=== PATIENT | female | born 1945 | race Caucasian/White ===

== ENCOUNTER 2017-12-16 07:50 | Day surgery (SDC) | payer MEDICARE, OTHER, SELFPAY ==
[2017-12-15 08:29] VITALS: BMI 30.8
--- NOTE | 2017-12-16 11:15 | CL.D_ITS ---
Patient Name: Stefan RODRIGUEZ Study Date: 12/16/2017 Performing: Sascha Zaragoza MD Ht: 62.99 inches 160 cm : 1945 Wt: 174.17 lbs 79 kg Age: 72 Gender: female BSA: 1.82 PROCEDURE(S) PERFORMED GZ32-CRA/COR/LV DC11-AO ROOT ANGIO WITH HEART CATH CLINICAL PROFILE AND INDICATIONS Indications: Suspected CAD, Cardiomyopathy, LV Dysfunction Heart Failure: NYHA Class: 1, Newly Diagnosed: Yes, Heart Failure Type: Systolic Stress/Imaging Stress Test w/SPECT MPI: Yes Result: NegativeStress Test with SPECT MPI: Negative Angina Classification Anginal Classification w/in 2 Weeks: No symptoms CAD Presentations: Other: Dyspnea on exertion Comorbidities/Risk Factors: Hypertension Prior CHF CONCLUSIONS Non obstructive coronary arteries Global LV systolic dysfunction- Moderate LVEF: by LV gram 45 % Cardiomyopathy: Congestive RECOMMENDATIONS D/c plavix, continue anti HTN Meds and maximize to optimize BP. Serial echo to monitor AI. Management as per referring Telephoner D/w Dr Nichole Manual sheath removal. DESCRIPTION OF PROCEDURE The patient arrived to the procedure lab. The risks and benefits of the procedure as well as a full d escription of our services here and current unavailability of surgical backup were fully explained to the patient and/or their significant other prior to the catheterization. The Timeout was completed, verifying the correct patient and procedure. The patient's procedural site was prepped and draped in the usual fashion. Local anesthetic was given subcutaneously to right groin region with Lidocaine 2%. Using a modified Seldinger technique, arterial access was obtained via the right femoral artery, a 4 Fr sheath was inserted Left Coronary Artery selective angiography was performed in multiple views us ing a 4 Fr. JL5 catheter. Right Coronary Artery selective angiography was then performed in multiple views using a 4 Fr. 3DRC catheter. Left Ventriculography was performed in THAYER projection using a 4 Fr . Pigtail catheter. LV to AO pullback pressures were then recorded.The arterial sheath was pulled and manual compression applied until hemostasis is achieved. CORONARY ANGIOGRAPHY DOMINANCE: Right Dominant LEFT HEART ASSESSMENT Left Ventricular Ejection Fraction: by LV gram 45 % Global Hypokinesis - Moderate Depressed Left Ventricular systolic function LVEDP: 21 mmHg Elevated Left Ventricular End Diastolic Pressure Cardiomyopathy: Congestive Left Ventricular Hypertrophy LEFT ANTERIOR DECENDING ARTERY: Angiographically normal CIRCUMFLEX ARTERY: Angiographically normal RIGHT CORONARY ARTERY: MID RCA: Mild luminal irregularities less than 30% VALVE FINDINGS: Aortic Valve Insufficiency: Grade 2 COMPLICATIONS No Complications PROCEDURE MEDICATIONS Oxygen: 2 L/min via nasal cannula Nitro Tab 0.4 mg PO 12/16/2017 11:06:36 SUMMARY OF HEMODYNAMIC DATA Time AIR REST ECG 08:20:26 AO 174/77 (113) SA 10:54:40 LV 195/-11, 11 11:00:02 LV 179/-9, 21 11:00:08 LVp 179/-8, 20 11:00:13 AOp 180/74 (115) 11:00:18 Signed By Sascha Zaragoza MD On 12/16/2017 11:14:44 Sascha Zaragoza MD
== END 2017-12-16 15:37 | disposition home or self-care (01) ==
LOC: CLSP 07:53
PROVIDERS: Family Provider Internal Medicine Infectious Disease; PCP Internal Medicine Infectious Disease; Referring Provider Internal Medicine Cardiovascular Disease; Visit Provider Internal Medicine Cardiovascular Disease
DX: I25.5 Ischemic cardiomyopathy (principal); I35.1 Nonrheumatic aortic (valve) insufficiency; I11.0 Hypertensive heart disease with heart failure; I50.20 Unspecified systolic (congestive) heart failure; I44.7 Left bundle-branch block, unspecified; E78.5 Hyperlipidemia, unspecified; Z79.82 Long term (current) use of aspirin; Z79.899 Other long term (current) drug therapy
CPT/HCPCS: 93458; 93567; J7040; Q9967; A4216; C1769; C1894

== ENCOUNTER 2018-07-24 18:03 | Inpatient (IN) | payer MEDICARE, OTHER, SELFPAY ==
[2017-12-15 08:29] VITALS: BMI 30.8
[2018-07-24] VITALS (12 sets, daily range): BP systolic 117–214; BP diastolic 63–120; PULSE 91–128; RESP 13–22; TEMP 36.2; O2SAT 100; BMI 25.2
--- NOTE | 2018-07-24 18:19 | EKG12_ITS ---
Test Reason : Blood Pressure : / mmHG Vent. Rate : 082 BPM Atrial Rate : 082 BPM P-R Int : 140 ms QRS Dur : 150 ms QT Int : 422 ms P-R-T Axes : 035 -41 156 degrees QTc Int : 493 ms Normal sinus rhythm Left axis deviation Left bundle branch block Abnormal ECG Confirmed by JORGE TESFAYE, NILSON ([id number]), editor in chief JENNA RIOS ([id number]) on 08/04/2018 12:49:29 PM Referred By: Confirmed By:NILSON PATEL MD
--- NOTE | 2018-07-24 18:20 | RAD_ITS ---
STUDY: X-RAY CHEST REASON FOR EXAM: Female, 73 years old. Tube placement TECHNIQUE: Frontal portable view of the chest was performed COMPARISON: None. FINDINGS: Endotracheal tube is in place with its tip 4 cm from the mimi. Gastric drainage tube is present with its tip in the proximal fundus and side port in the gastric esophageal junction. There is a left subclavian entry infusion port terminating with its tip in the lower SVC. There is indistinct right lower lung opacity. There is no pneumothorax, pulmonary edema or pleural effusions. Cardiac size is normal. There is osteoporosis with compression fractures in the spine with cement augmentation. There is cholecystectomy clips. Compared to earlier same day imaging endotracheal tube has been slightly retracted with improved positioning. RAD/Chest 1 View (Portable) IMPRESSION: 1. Endotracheal tube with tip 4 cm from the mimi. 2. Gastric drainage tube with side-port at the gastroesophageal junction, consider advancement. 3. Right lower lung opacity, possibly atelectasis versus early developing pneumonia. Electronically Signed: Susu Brock, at 20:27 EDT Tel , Service support ,
--- NOTE | 2018-07-24 18:37 | PCM.HP.STD ---
Problem List (1) Opioid withdrawal Status: Acute (2) Altered mental status Status: Acute (3) Cardiomyopathy in disease classified elsewhere Status: Chronic (4) History of left heart catheterization Status: Chronic Comment: Moderate Global hypokinesis, EF 45%. Less than 30% mild luminal irregularities in Mid RCA, all other coronaries normal. (5) Anemia Status: Chronic (6) Peripheral neuropathy Status: Chronic (7) Depression Status: Chronic (8) Hypertension Status: Chronic Qualifiers: (9) Multiple myeloma Status: Chronic Qualifiers: History of Present Illness Date of Admission: 07/24/18 Chief Complaint: Altered mental status with agitation and opiate withdrawal The patient is a 73 year old F with a PMH as below who presents to outside hospital with altered mental status. Patient is currently intubated and sedated and there is no family at bedside and I cannot get a hold of anyone on the phone. Per report from the ED physician at the outside hospital, Mrs. Li has a history of chronic opiate use. It started in her 30s when she was having migraines and was given narcotics by her primary care doctor. She then developed multiple myeloma has been seeing [facility] oncology in [place], and because of any bone mets she has been continued on pain medication. Of note she had a CT scan today which demonstrated new lytic lesions in the calvarium which represent metastasis. Most recently her developed prostate cancer and was given doses of narcotics to help manage his pain, and it was discovered by the family that she was stealing his pain meds and so now they are all locked up. Apparently per report the family was unaware of her previous narcotic use because her was hiding it from the rest of the family. Also it appears that she ran out of her fentanyl patch and her other narcotics 2 or 3 days ago. At the outside hospital she was extremely agitated, she was given a dose of Narcan which made her symptoms of withdrawal worse. She was given Ativan which was unsuccessful and calming her down, she was then given an for 5 doses of 50 mcg of fentanyl, which also did not improve her symptoms. Because of her agitation and the amount of medication that she had been given, she was sedated and intubated. Per report, she continued to bite on the tube despite being on 80 of propofol, and therefore she was given a dose of vecuronium. Also there is some concern at the outside hospital but a new left bundle branch block based on prior EKGs that she had had at that facility. However, on review of our medical records, it appears that she had an EKG on December 05, 2016 with a left bundle branch block at that time. She had a troponin at the outside hospital which was normal and they called 1 of our setter off who did not feel that it was anything urgent since the troponin was negative. Past Medical History Past Medical History (Chronic Problems): Chronic Problems (Last Updated 12/21/17 @ 08:49 by Diane Hopkins) Cardiomyopathy in disease classified elsewhere (Chronic) History of left heart catheterization (Chronic 12/16/17) Moderate Global hypokinesis, EF 45%. Less than 30% mild luminal irregularities in Mid RCA, all other coronaries normal. Anemia (Chronic) Dementia (Chronic) Peripheral neuropathy (Chronic) Depression (Chronic) Hypertension (Chronic) Multiple myeloma (Chronic) Status post hip surgery (Chronic) Debility (Chronic) Medical History: Medical History (Last Updated 12/21/17 @ 08:49 by Diane Hopkins) Cardiomyopathy in disease classified elsewhere (Acute) I43 Allergies levofloxacin [From Levaquin] Allergy (Verified 10/17/15 20:42) Unknown metoprolol Allergy (Verified 10/17/15 20:42) Unknown Sulfa (Sulfonamide Antibiotics) Allergy (Verified 10/17/15 20:42) Unknown Home Medications: Ambulatory Orders Medication Instructions Recorded Albuterol Inhaler [Ventolin Hfa] 1 puff INHALATION Q4H PRN PRN 10/17/15 Aspirin E.C. [Ecotrin] 81 mg PO DAILY@0800 10/17/15 Calcium Citrate/Vitamin D3 1,000 unit PO DAILY 10/17/15 [Calcium Citrate - Vit D Tablet] Citalopram [Celexa] 10 mg PO DAILY 10/17/15 Gabapentin [Neurontin] 400 mg PO TIDCM 10/17/15 Guaifenesin [Mucinex] 600 mg PO DAILY 10/17/15 Multivitamin [Daily Multiple 1 each PO DAILY 10/17/15 Vitamin] Omeprazole [Prilosec] 20 mg PO BID 10/17/15 Amlodipine [Norvasc] 5 mg PO DAILY 12/03/16 Dexamethasone 12 mg PO QWEEK 12/03/16 Lisinopril [Zestril] 10 mg PO DAILY 12/03/16 Lutein 20 mg PO DAILY 12/03/16 Oxycodone [Oxyir] 5 mg PO Q6H PRN PRN #12 tablet 12/06/16 fentaNYL patch [Duragesic patch] 50 mcg TRANSDERM. Q72H #3 12/06/16 Acetaminophen [Tylenol Extra 500 mg PO Q8H PRN PRN 12/15/17 Strength] Acyclovir [Zovirax] 400 mg PO BID 12/15/17 Clobetasol Propionate [Temovate 1 applic TOPICAL QWEEK 12/15/17 Ointment] Estradiol [Estrace Vaginal Cream] 1 gm VAGINAL Q7D 12/15/17 Furosemide [Lasix] 20 mg PO DAILY 12/15/17 Magnesium PO DAILY 12/15/17 Pamidronate Disodium 30 mg IV 12/15/17 proMETHazine tablet [Phenergan 25 mg PO Q6H PRN PRN 12/15/17 tablet] traZODone [Desyrel] 100 mg PO DAILY 12/15/17 clopidogrel 75 mg tablet 75 mg PO DAILY #30 tab 06/29/18 Surgical History: Surgical History (Last Updated 12/21/17 @ 08:49 by Diane Hopkins) History of left heart catheterization (Chronic) Onset Date: 12/16/17 Z98.890 Moderate Global hypokinesis, EF 45%. Less than 30% mild luminal irregularities in Mid RCA, all other coronaries normal. Surgical History: - - hip surgery 12/01/16 Psychiatric History: - - dementia DEVICE SALES CONSULTANT History: No pertinent DEVICE SALES CONSULTANT history Smoking Status: Never smoker Alcohol: None Drugs: None - *Family History Maternal History Items: No pertinent history Paternal History Items: No pertinent history Review of Systems Unable to obtain accurate/complete ROS d/t: sedation and intubation VTE Information - Inpt Only VTE Present on Admission: No Patient Problems: Active and Suspected Problems (Last Updated 12/21/17 @ 08:49 by Diane Hopkins) Opioid withdrawal (Acute) Altered mental status (Acute) - Physical Exam General: - - Sedated and intubated HEENT: Atraumatic, PERRLA, Normocephalic Oral: Dry Mucosa Neck: Supple, No JVD Lungs: Clear to auscultation, Normal air movement, No rhonchi, No wheeze, No rales Cardiovascular: Regular Rhythm, Normal S1, Normal S2, No murmurs, Tachycardic Abdomen: Soft, Non-Distended, No Hepato-splenomegaly Extremities: No edema, Capillary Refill Less than 3 Seconds Skin: No rashes, No breakdown Neurological: - - Unable to obtain Psych/Mental Status: - - Unable to obtain Vital Signs Resp 14 07/24/18 18:00 Body Mass Index (BMI) 30.8 Assessment/Plan All Active Problems (Last Updated 12/21/17 @ 08:49 by Diane Hopkins) Opioid withdrawal (Acute) Altered mental status (Acute) Acute metabolic encephalopathy (Acute) NSTEMI (non-ST elevated myocardial infarction) (Acute) 1. Altered mental status secondary to acute opiate withdrawal -As described in the HPI, she has been on chronic narcotics for very long time and apparently ran out of her fentanyl patch and OxyContin 2 or 3 days ago -She was given a dose of Narcan in the ER to no avail and she is currently intubated and sedated -She had a CT scan at the outside facility of her head which showed potentially new lytic lesions in her calvarium -I am unsure, since I am not able to contact family, as to what the goal is therefore at this time will initiate her on a fentanyl drip as well to help with any pain management and her current elevated blood pressure, continue with propofol -We will repeat a chest x-ray and abdominal x-ray to confirm placement of ET tube and NG tube -Consult to the legal intern for vent management -Baker is in place -Pepcid IV twice daily GI prophylaxis 2. Multiple myeloma -We will likely need to contact [facility] oncology to obtain records -Currently I am unsure as to how extensive any metastatic disease is, or what treatments she has completed or is currently on -We will currently continue with fentanyl drip while intubated to help control pain 3. Nonobstructive coronary artery disease/history of left heart cath/left bundle branch block/HTN -Left bundle branch block does not appear to be new, therefore will not consult cardiology -We will obtain serial cardiac enzymes -She had a cardiac cath in 2018 with an EF of 45% and moderate left ventricular systolic dysfunction -No history of heart failure, she may be on Lasix 20 mg daily, currently we will continue with IV fluids since she is not eating or drinking -Continue her home medications once verified 4. Depression/anxiety/dementia -Unsure as to how extensive her dementia is and whether or not it is progressive -We will continue her Celexa once medication is confirmed DVT: Lovenox and SCDs Code Visit Inpatient E&M: 69392 Init Hosp L3
--- NOTE | 2018-07-24 18:43 | HP.PCM_ITS ---
Problem List (1) Opioid withdrawal Status: Acute (2) Altered mental status Status: Acute (3) Cardiomyopathy in disease classified elsewhere Status: Chronic (4) History of left heart catheterization Status: Chronic Comment: Moderate Global hypokinesis, EF 45%. Less than 30% mild luminal irregularities in Mid RCA, all other coronaries normal. (5) Anemia Status: Chronic (6) Peripheral neuropathy Status: Chronic (7) Depression Status: Chronic (8) Hypertension Status: Chronic Qualifiers: (9) Multiple myeloma Status: Chronic Qualifiers: History of Present Illness Date of Admission: 07/24/18 Chief Complaint: Altered mental status with agitation and opiate withdrawal The patient is a 73 year old F with a PMH as below who presents to outside hospital with altered mental status. Patient is currently intubated and sedated and there is no family at bedside and I cannot get a hold of anyone on the phone. Per report from the ED physician at the outside hospital, Mrs. Li has a history of chronic opiate use. It started in her 30s when she was having migraines and was given narcotics by her primary care doctor. She then developed multiple myeloma has been seeing [facility] oncology in [place], and because of any bone mets she has been continued on pain medication. Of note she had a CT scan today which demonstrated new lytic lesions in the calvarium which represent metastasis. Most recently her developed prostate cancer and was given doses of narcotics to help manage his pain, and it was discovered by the family that she was stealing his pain meds and so now they are all locked up. Apparently per report the family was unaware of her previous narcotic use because her was hiding it from the rest of the family. Also it appears that she ran out of her fentanyl patch and her other narcotics 2 or 3 days ago. At the outside hospital she was extremely agitated, she was given a dose of Narcan which made her symptoms of withdrawal worse. She was given Ativan which was unsuccessful and calming her down, she was then given an for 5 doses of 50 mcg of fentanyl, which also did not improve her symptoms. Because of her agitation and the amount of medication that she had been given, she was sedated and intubated. Per report, she continued to bite on the tube despite being on 80 of propofol, and therefore she was given a dose of vecuronium. Also there is some concern at the outside hospital but a new left bundle branch block based on prior EKGs that she had had at that facility. However, on review of our medical records, it appears that she had an EKG on December 05, 2016 with a left bundle branch block at that time. She had a troponin at the outside hospital which was normal and they called 1 of our physics and astronomy professor who did not feel that it was anything urgent since the troponin was negative. Past Medical History Past Medical History (Chronic Problems): Chronic Problems (Last Updated 12/21/17 @ 08:49 by Diane Hopkins) Cardiomyopathy in disease classified elsewhere (Chronic) History of left heart catheterization (Chronic 12/16/17) Moderate Global hypokinesis, EF 45%. Less than 30% mild luminal irregularities in Mid RCA, all other coronaries normal. Anemia (Chronic) Dementia (Chronic) Peripheral neuropathy (Chronic) Depression (Chronic) Hypertension (Chronic) Multiple myeloma (Chronic) Status post hip surgery (Chronic) Debility (Chronic) Medical History: Medical History (Last Updated 12/21/17 @ 08:49 by Diane Hopkins) Cardiomyopathy in disease classified elsewhere (Acute) I43 Allergies levofloxacin [From Levaquin] Allergy (Verified 10/17/15 20:42) Unknown metoprolol Allergy (Verified 10/17/15 20:42) Unknown Sulfa (Sulfonamide Antibiotics) Allergy (Verified 10/17/15 20:42) Unknown Home Medications: Ambulatory Orders Medication Instructions Recorded Albuterol Inhaler [Ventolin Hfa] 1 puff INHALATION Q4H PRN PRN 10/17/15 Aspirin E.C. [Ecotrin] 81 mg PO DAILY@0800 10/17/15 Calcium Citrate/Vitamin D3 1,000 unit PO DAILY 10/17/15 [Calcium Citrate - Vit D Tablet] Citalopram [Celexa] 10 mg PO DAILY 10/17/15 Gabapentin [Neurontin] 400 mg PO TIDCM 10/17/15 Guaifenesin [Mucinex] 600 mg PO DAILY 10/17/15 Multivitamin [Daily Multiple 1 each PO DAILY 10/17/15 Vitamin] Omeprazole [Prilosec] 20 mg PO BID 10/17/15 Amlodipine [Norvasc] 5 mg PO DAILY 12/03/16 Dexamethasone 12 mg PO QWEEK 12/03/16 Lisinopril [Zestril] 10 mg PO DAILY 12/03/16 Lutein 20 mg PO DAILY 12/03/16 Oxycodone [Oxyir] 5 mg PO Q6H PRN PRN #12 tablet 12/06/16 fentaNYL patch [Duragesic patch] 50 mcg TRANSDERM. Q72H #3 12/06/16 Acetaminophen [Tylenol Extra 500 mg PO Q8H PRN PRN 12/15/17 Strength] Acyclovir [Zovirax] 400 mg PO BID 12/15/17 Clobetasol Propionate [Temovate 1 applic TOPICAL QWEEK 12/15/17 Ointment] Estradiol [Estrace Vaginal Cream] 1 gm VAGINAL Q7D 12/15/17 Furosemide [Lasix] 20 mg PO DAILY 12/15/17 Magnesium PO DAILY 12/15/17 Pamidronate Disodium 30 mg IV 12/15/17 proMETHazine tablet [Phenergan 25 mg PO Q6H PRN PRN 12/15/17 tablet] traZODone [Desyrel] 100 mg PO DAILY 12/15/17 clopidogrel 75 mg tablet 75 mg PO DAILY #30 tab 06/29/18 Surgical History: Surgical History (Last Updated 12/21/17 @ 08:49 by Diane Hopkins) History of left heart catheterization (Chronic) Onset Date: 12/16/17 Z98.890 Moderate Global hypokinesis, EF 45%. Less than 30% mild luminal irregularities in Mid RCA, all other coronaries normal. Surgical History: - - hip surgery 12/01/16 Psychiatric History: - - dementia UNDERGROUND FOREMAN History: No pertinent UNDERGROUND FOREMAN history Smoking Status: Never smoker Alcohol: None Drugs: None - *Family History Maternal History Items: No pertinent history Paternal History Items: No pertinent history Review of Systems Unable to obtain accurate/complete ROS d/t: sedation and intubation VTE Information - Inpt Only VTE Present on Admission: No Patient Problems: Active and Suspected Problems (Last Updated 12/21/17 @ 08:49 by Diane Hopkins) Opioid withdrawal (Acute) Altered mental status (Acute) - Physical Exam General: - - Sedated and intubated HEENT: Atraumatic, PERRLA, Normocephalic Oral: Dry Mucosa Neck: Supple, No JVD Lungs: Clear to auscultation, Normal air movement, No rhonchi, No wheeze, No rales Cardiovascular: Regular Rhythm, Normal S1, Normal S2, No murmurs, Tachycardic Abdomen: Soft, Non-Distended, No Hepato-splenomegaly Extremities: No edema, Capillary Refill Less than 3 Seconds Skin: No rashes, No breakdown Neurological: - - Unable to obtain Psych/Mental Status: - - Unable to obtain Vital Signs Resp 14 07/24/18 18:00 Body Mass Index (BMI) 30.8 Assessment/Plan All Active Problems (Last Updated 12/21/17 @ 08:49 by Diane Hopkins) Opioid withdrawal (Acute) Altered mental status (Acute) Acute metabolic encephalopathy (Acute) NSTEMI (non-ST elevated myocardial infarction) (Acute) 1. Altered mental status secondary to acute opiate withdrawal -As described in the HPI, she has been on chronic narcotics for very long time and apparently ran out of her fentanyl patch and OxyContin 2 or 3 days ago -She was given a dose of Narcan in the ER to no avail and she is currently intubated and sedated -She had a CT scan at the outside facility of her head which showed potentially new lytic lesions in her calvarium -I am unsure, since I am not able to contact family, as to what the goal is therefore at this time will initiate her on a fentanyl drip as well to help with any pain management and her current elevated blood pressure, continue with propofol -We will repeat a chest x-ray and abdominal x-ray to confirm placement of ET tube and NG tube -Consult to the nuclear medicine tech for vent management -Baker is in place -Pepcid IV twice daily GI prophylaxis 2. Multiple myeloma -We will likely need to contact [facility] oncology to obtain records -Currently I am unsure as to how extensive any metastatic disease is, or what treatments she has completed or is currently on -We will currently continue with fentanyl drip while intubated to help control pain 3. Nonobstructive coronary artery disease/history of left heart cath/left bun dle branch block/HTN -Left bundle branch block does not appear to be new, therefore will not consult cardiology -We will obtain serial cardiac enzymes -She had a cardiac cath in 2018 with an EF of 45% and moderate left ventricular systolic dysfunction -No history of heart failure, she may be on Lasix 20 mg daily, currently we will continue with IV fluids since she is not eating or drinking -Continue her home medications once verified 4. Depression/anxiety/dementia -Unsure as to how extensive her dementia is and whether or not it is progressive -We will continue her Celexa once medication is confirmed DVT: Lovenox and SCDs Code Visit Inpatient E&M: 63793 Init Hosp L3
[2018-07-24] MEDS: Propofol 10MG/Ml 1,000 MG/100 ML Bottle 4.122 MG CONT INF ×2 (19:05→20:01)
[2018-07-24] MEDS: fentaNYL drip 100 ML 2.5 MCG IV (20:02)
[2018-07-24] MEDS: 0.9% Normal Saline 1,000 ML 100 ML IV (21:47)
[2018-07-24] MEDS: Chlorhexidine 15 ML PO (21:48)
[2018-07-24] MEDS: Ipratropium/Albuterol Sulfate 3 ML AMPUL.NEB INHALATION (23:18)
[2018-07-25] VITALS (39 sets, daily range): BP systolic 68–184; BP diastolic 21–95; PULSE 54–131; RESP 14–27; TEMP 36.2–37.1; O2SAT 30–100
[2018-07-25] MEDS: Propofol 10MG/Ml 1,000 MG/100 ML Bottle 4.122 MG CONT INF ×5 (00:52→21:22)
--- NOTE | 2018-07-25 02:15 | PCM.HOSP.N ---
Hospitalist Note Patient on aggressive sedation as presentation complicated with severe withdrawal, RN noting notable hypotension, held propofol and fentanyl, aggressive IVFs administered, NEP if needed, administer naloxone 2 mg IV x 1 now and if needed could initiate drip also.
[2018-07-25] MEDS: 0.9% Normal Saline 1,000 ML 999 ML IV ×3 (02:32→23:20)
[2018-07-25] MEDS: Ipratropium/Albuterol Sulfate 3 ML AMPUL.NEB INHALATION (03:28)
[2018-07-25] MEDS: 0.9% Normal Saline 1,000 ML 100 ML IV (03:57)
--- NOTE | 2018-07-25 04:05 | CPS ---
Pt remains agitated, per nursing no weaning trial to be performed. SBT not performed at this time. Pt with RR 14-30, sitting up in bed and will not follow CARDIOLOGY MANAGER commands.
[2018-07-25 05:20] LABS: Absolute Lymphocyte Count 0.87 X10^3/ul (0.83-4.51); Absolute Neutrophil Count 7.6 X10^3/uL (2.0-7.7); Basophil# 0.02 X10^3/uL; Basophil% 0.2 % (0-1); Eosinophil# 0.01 X10^3/uL; Eosinophils% 0.1 % (0-5); Hematocrit 28.5 % (37-47); Hemoglobin 8.5 g/dl (12.0-15.0); Lymphocyte # 0.87 X10^3/ul (4.0); Lymphocyte % 10.2 % (19-41); Mean Corp Hgb Conc 29.8 g/gl (32-36); Mean Corpuscular Hgb 25.4 pg (27.0-32.0); Mean Corpuscular Volume 85.3 fL (81-99); Mean Platelet Vol. 9.2 fl (6.2-12.0); Monocyte# 0.02 X10^3/uL; Monocyte% 0.2 % (0-10); Neutrophil # 7.62 X10^3/uL (2.7-7.7); Neutrophil % 89.2 % (47-70); POSITIVE COUNT NO; POSITIVE DIFFERENTIAL NO; POSITIVE MORPHOLOGY NO; Platelet Count 193 K/mm3 (150-450); RBC Distribution Width SD 50.3 fl (35.1-43.9); Red Blood Count 3.34 M/mm3 (4.2-5.4); White Blood Count 8.6 K/mm3 (4.4-11.0)
[2018-07-25 05:35] LABS: ALB/GLOB Ratio 0.9 RATIO (0.9-2.4); AST(SGOT) 16 U/L (15-37); Alanine Aminotransfer ALT/SGPT 13 U/L (13-56); Albumin, Serum 2.6 g/dL (3.2-5.0); Alkaline Phosphatase 55 U/L (45-117); Anion Gap 9 (5-15); BUN 9 mg/dL (7-18); BUN/Creat Ratio 13.3 RATIO (10-20); Calcium,Total 7.2 mg/dL (8.5-10.1); Chloride 114 mmol/L (98-107); Creatinine, Serum 0.68 mg/dL (0.55-1.02); EST Glomerular Filtration Rate 90 mL/min (>60); Est Glom Filt Rate - Afr Amer 109 mL/min (>60); Estimated Creatinine Clearance 44.41 ml/min; Globulin 2.8 g/dL (2.2-4.2); Glucose 123 mg/dL (74-106); Magnesium 1.9 mg/dL (1.6-2.6); Phosphorus 2.1 mg/dL (2.5-4.9); Protein, Total 5.4 g/dL (6.4-8.2); Sodium Level 147 mmol/L (136-145)
[2018-07-25] MEDS: fentaNYL drip 100 ML 2.5 MCG IV ×3 (06:00→21:04)
--- NOTE | 2018-07-25 07:00 | CON.PCM_ITS ---
Reason for Consult Date of Consultation: 07/25/18 Reason for Consultation: Respiratory failure History of Present Illness: The patient is a 73-year-old female, with a history as outlined below, who presented as a transfer of care from an outside hospital with acute respiratory failure. The patient is currently intubated and sedated. Therefore, information pertinent to the hospitalization was obtained primarily via chart review. The patient appears to have a prolonged, chronic history of opiate dependence. She also has an underlying diagnosis of multiple myeloma. She initially presented to the outside hospital emergency department with altered mentation. Per report, the patient had ran out of her chronic opiate medications in the days leading up to her emergency department visit. She was noted on arrival to be extremely agitated. Apparently, the outside emergency department staff administered Narcan to her, which only led to worsening of her symptoms. Following this, they administered a number of sedating medications including Ativan and fentanyl. Due to her continued agitation, the decision was made to intubate her. I was also notified that the intubation itself was apparently difficult for the outside hospital. On presentation here, the patient was noted to be afebrile and hypertensive with a blood pressure of 193/98. Initial laboratory evaluation revealed a hemoglobin of 8.5. Chemistry profile was notable for a potassium of 3.0. A sputum culture was collected and is currently pending. Plain film chest x-ray revealed a right lower lobe opacity, likely representing atelectasis. The patient is currently sedated on 30 mg of propofol and 150 mcg of fentanyl. Past Medical History Past Medical History (Chronic Problems): Chronic Problems (Last Updated 12/21/17 @ 08:49 by Diane Hopkins) Cardiomyopathy in disease classified elsewhere (Chronic) History of left heart catheterization (Chronic 12/16/17) Moderate Global hypokinesis, EF 45%. Less than 30% mild luminal irregularities in Mid RCA, all other coronaries normal. Anemia (Chronic) Dementia (Chronic) Peripheral neuropathy (Chronic) Depression (Chronic) Hypertension (Chronic) Multiple myeloma (Chronic) Status post hip surgery (Chronic) Debility (Chronic) Medical History: Medical History (Last Updated 12/21/17 @ 08:49 by Diane Hopkins) Cardiomyopathy in disease classified elsewhere (Chronic) I43 Allergies levofloxacin [From Levaquin] Allergy (Verified 10/17/15 20:42) Unknown metoprolol Allergy (Verified 10/17/15 20:42) Unknown Sulfa (Sulfonamide Antibiotics) Allergy (Verified 10/17/15 20:42) Unknown Home Medications: Ambulatory Orders Medication Instructions Recorded Albuterol Inhaler [Ventolin Hfa] 1 puff INHALATION Q4H PRN PRN 10/17/15 Aspirin E.C. [Ecotrin] 81 mg PO DAILY@0800 10/17/15 Calcium Citrate/Vitamin D3 1,000 unit PO DAILY 10/17/15 [Calcium Citrate - Vit D Tablet] Citalopram [Celexa] 10 mg PO DAILY 10/17/15 Gabapentin [Neurontin] 400 mg PO TIDCM 10/17/15 Guaifenesin [Mucinex] 600 mg PO DAILY 10/17/15 Multivitamin [Daily Multiple 1 each PO DAILY 10/17/15 Vitamin] Omeprazole [Prilosec] 20 mg PO BID 10/17/15 Amlodipine [Norvasc] 5 mg PO DAILY 12/03/16 Dexamethasone 12 mg PO QWEEK 12/03/16 Lisinopril [Zestril] 10 mg PO DAILY 12/03/16 Lutein 20 mg PO DAILY 12/03/16 Oxycodone [Oxyir] 5 mg PO Q6H PRN PRN #12 tablet 12/06/16 Acetaminophen [Tylenol Extra 500 mg PO Q8H PRN PRN 12/15/17 Strength] Acyclovir [Zovirax] 400 mg PO BID 12/15/17 Clobetasol Propionate [Temovate 1 applic TOPICAL QWEEK 12/15/17 Ointment] Estradiol [Estrace Vaginal Cream] 1 gm VAGINAL Q7D 12/15/17 Furosemide [Lasix] 20 mg PO DAILY 12/15/17 Magnesium PO DAILY 12/15/17 Pamidronate Disodium 30 mg IV 12/15/17 proMETHazine tablet [Phenergan 25 mg PO Q6H PRN PRN 12/15/17 tablet] traZODone [Desyrel] 100 mg PO DAILY 12/15/17 clopidogrel 75 mg tablet 75 mg PO DAILY #30 tab 06/29/18 fentaNYL patch [Duragesic patch] 50 mcg TRANSDERM. Q72H 07/24/18 Surgical History: Surgical History (Last Reviewed 07/24/18 @ 18:47 by Avtar Cervantes MD) History of left heart catheterization (Chronic) Onset Date: 12/16/17 Z98.890 Moderate Global hypokinesis, EF 45%. Less than 30% mild luminal irregularities in Mid RCA, all other coronaries normal. Surgical History: - - hip surgery 12/01/16 Psychiatric History: - - dementia SEARCH ENGINE MARKETING STRATEGIST History: No pertinent SEARCH ENGINE MARKETING STRATEGIST history Smoking Status: Never smoker Alcohol: None Drugs: None - *Family History Maternal History Items: No pertinent history Paternal History Items: No pertinent history Review of Systems Unable to obtain accurate/complete ROS d/t: Due to current intubation and mechanical ventilation status. Patient Problems: Active and Suspected Problems (Last Updated 12/21/17 @ 08:49 by Diane Hopkins) Opioid withdrawal (Acute) Altered mental status (Acute) Objective: The patient's most recent lab work, culture data and imaging studies have all been personally reviewed. - Physical Exam General: - - Currently intubated, sedated and mechanically ventilated. No ventilator dyssynchrony noted. HEENT: Atraumatic, PERRLA, Normocephalic Oral: No Gingival or Mucosal Lesions/ Ulcerations, - - Endotracheal and OG tubes currently in place Neck: Supple, No Nodes, Trachea Midline Lungs: No rhonchi, No wheeze, No rales, Diminished Cardiovascular: Regular rate, Regular Rhythm, Normal S1, Normal S2, No murmurs Abdomen: Bowel Sounds Present, Soft, Non Tender Extremities: No clubbing, No cyanosis, No edema Musculoskeletal: No Muscle Wasting Lymphatic: No Cervical, Supraclavicular, or Inguinal Adenopathy Neurological: - - No focal neurological deficits. Currently sedated. Vital Signs Temp Pulse Resp BP Pulse Ox 98.2 F 86 14 131/51 H 100 07/25/18 04:00 07/25/18 06:00 07/25/18 06:00 07/25/18 06:00 07/25/18 06:00 Oxygen Delivery Method Mechanical Ventilator Weight: 153 lb 7.068 oz Body Mass Index (BMI) 25.2 Intake and Output for Last 24 Hours 07/23/18 07/24/18 07/25/18 23:59 23:59 23:59 Intake Total 2621 / 2621 Output Total 1080 / 1080 Balance 1541 / 1541 Laboratory Tests Past 24 Hrs 07/25/18 07/25/18 05:05 05:05 WBC 8.6 RBC 3.34 L Hgb 8.5 L Hct 28.5 L MCV 85.3 MCH 25.4 L MCHC 29.8 L RDW 16.0 H RDW Differential 50.3 H Plt Count 193 MPV 9.2 Immature Gran % (Auto) 0.100 Neut % (Auto) 89.2 H Lymph % (Auto) 10.2 L [place] % (Auto) 0.2 Eos % (Auto) 0.1 Baso % (Auto) 0.2 Absolute Neuts (auto) 7.6 Absolute Lymphs (auto) 0.87 Total Counted Not Reportable Sodium 147 H Potassium 3.0 L Chloride 114 H Carbon Dioxide 24.0 Anion Gap 9 BUN 9 Creatinine 0.68 Estim Creat Clear Calc 44.41 Est GFR (MDRD) Af Amer 109 Est GFR (MDRD) Non-Af 90 BUN/Creatinine Ratio 13.3 Glucose 123 H Calcium 7.2 L Phosphorus 2.1 L Magnesium 1.9 Total Bilirubin 0.30 AST 16 ALT 13 Alkaline Phosphatase 55 Total Protein 5.4 L Albumin 2.6 L Globulin 2.8 Albumin/Globulin Ratio 0.9 Clinical Impression(s) from Imaging Studies Chest X-Ray 07/24/18 18:20 IMPRESSION: 1. Endotracheal tube with tip 4 cm from the mmii. 2. Gastric drainage tube with side-port at the gastroesophageal junction, consider advancement. 3. Right lower lung opacity, possibly atelectasis versus early developing pneumonia. Electronically Signed: Susu Delmy, at 20:27 EDT Tel , Service support , Assessment/Plan Active and Suspected Problems (Last Updated 12/21/17 @ 08:49 by Diane Hopkins) Opioid withdrawal (Acute) Altered mental status (Acute) RECOMMENDATIONS: 1. Obtain arterial blood gas. 2. Wean FiO2 to maintain oxygen saturations at or above 90%. 3. Continue fentanyl and propofol for sedation. Maintain RASS of -1 to 1. 4. Okay to begin tube feeds today. 5. Plan for paired spontaneous awakening and breathing trials beginning tomorrow. 6. Continue appropriate ICU prophylaxis with Lovenox and Pepcid, as ordered. IMPRESSIONS: 1. Acute respiratory failure The patient appears to have been intubated at the outside hospital due to medication refractory agitation. It is unclear whether the patient was going through opiate withdrawal or whether the Narcan administration precipitated her withdrawal symptoms. Regardless, there is also some concern that the patient may be utilizing her 's opiate pain medications, as he is currently being treated for prostate cancer. For now, would recommend continuing invasive mechanical ventilatory support with propofol and fentanyl for sedation. Would plan to perform spontaneous awakening and breathing trials, beginning tomorrow. If the patient remains agitated, may need to consider a transition to Precedex for sedation. The patient is afebrile without an elevated white blood cell count. I do not see an indication for antibiotics at the current time. Wean FiO2 as tolerated to maintain an oxygen saturation at or above 90%. Obtain arterial blood gas this morning. Okay from my perspective to initiate tube feeds today. 2. Encephalopathy The patient was noted to be altered in mentation upon presentation to the outside hospital emergency department. Unclear if this may have been related to an opiate overdose versus that of acute withdrawal symptoms precipitated by Narcan administration. In addition, CT head at the outside facility did reveal new lytic lesions in her calvarium. The patient does have a known history of multiple myeloma. Recommend continuing current supportive measures as noted above. 3. Personal history of multiple myeloma The patient is currently followed by Dr. Ybarra at [facility]. Consultation may need to be placed to them in light of the lytic lesions noted on CT head. 4. Depression/anxiety/dementia/hypertension Complicates care, management, recovery and prognosis. Recommend physical therapy evaluation once medically stabilized. Okay from my perspective to begin tube feeds today. TIME: 40 minutes of critical care time, independent of procedures, was spent addressing the patient's acute respiratory failure, encephalopathy, history of multiple myeloma, review of all data and collaboration with the care team. ([id number]) Code Visit 9xxxx: [id number] Critical care first hour
--- NOTE | 2018-07-25 07:07 | PCM.PROGNOTE ---
Patient Problems: Active and Suspected Problems (Last Updated 12/21/17 @ 08:49 by Diane Hopkins) Opioid withdrawal (Acute) Altered mental status (Acute) Subjective: The patient is a 73-year-old female with a past medical history of cardiomyopathy with a 45% ejection fraction and global hypokinesis, dementia, peripheral neuropathy, depression, hypertension, multiple myeloma, opiate dependence and chronic debility who was transferred to [facility] from an outside facility for acute mental status changes and agitation secondary to acute opiate withdrawal. She was ultimately intubated and sedated at the outside facility. CTB at the [facility] facility showed new lytic lesions in the calvarium. EKG showed a new LBBB. Troponin was normal. VS's on arrival to [facility] ICU were temperature 97.1, heart rate 108, blood pressure 193/98, respiratory rate 19 and she was 100% saturated on an FiO2 of 100%. Chest x-ray at admission shows patchy infiltrates, right greater than left. The endotracheal tube was in good position. Afebrile since admission. Blood pressures have ranged from 214/122 currently 128/54. 72 131. The pulse ox is currently 100% on a 35% FiO2. Fluid balance is +1541 since admission. All lab was personally reviewed. White blood cell count is 8.6 with a left shift. Hemoglobin is 8.5 with an MCV of 85.3 and an RDW of 16. Platelets are within normal limits. Sodium is high at 147 and potassium is 3.0 today. BUN is 9 with a creatinine of 0.68. Phosphorus is low at 2.1 and the calcium corrected for hypoalbuminemia is mildly decreased at 7.2. LFTs are unremarkable. Sputum Gram stain and culture are pending. Pt is intubated and currently sedated with 150mcg Fentanyl and 30 mcg Propofol....still very restless at times. Moving all extremities. I spoke with her dtr Nadia who is currently caring for her dad who was recently diagnosed with prostate CA and her mother. Apparently her mother has been addicted to prescription pain pills for 30 years and her has been keeping it from the rest of the family. She recently finished a months worth of pain medication in 2 weeks per the dtr. she has trouble sleeping at night and Nadia states she will take anything to get herself to sleep. - Physical Exam General: Well developed, Well nourished, - - Sedated and on the ventilator HEENT: Atraumatic, PERRLA, Normocephalic Neck: Supple, No JVD, Trachea Midline Lungs: Clear to auscultation Cardiovascular: Regular Rhythm, Normal S1, Normal S2, No murmurs, Tachycardic - when agitated Abdomen: Soft, Non-Distended, No Hepato-splenomegaly, Hypoactive Bowel Sounds, - - No guarding with palpation Extremities: No clubbing, No cyanosis, No edema Skin: No rashes, No breakdown Musculoskeletal: No Muscle Wasting Neurological: - - Moving all extremities, no facial asymmetry Vital Signs Temp Pulse Resp BP Pulse Ox 98.2 F 76 14 148/57 H 100 07/25/18 04:00 07/25/18 07:00 07/25/18 07:00 07/25/18 07:00 07/25/18 07:00 Oxygen Delivery Method Mechanical Ventilator Weight: 153 lb 7.068 oz Body Mass Index (BMI) 25.2 Intake and Output for Last 24 Hours 07/23/18 07/24/18 07/25/18 23:59 23:59 23:59 Intake Total 2621 / 2621 Output Total 1080 / 1080 Balance 1541 / 1541 Laboratory Tests Past 24 Hrs 07/25/18 07/25/18 05:05 05:05 WBC 8.6 RBC 3.34 L Hgb 8.5 L Hct 28.5 L MCV 85.3 MCH 25.4 L MCHC 29.8 L RDW 16.0 H RDW Differential 50.3 H Plt Count 193 MPV 9.2 Immature Gran % (Auto) 0.100 Neut % (Auto) 89.2 H Lymph % (Auto) 10.2 L [place] % (Auto) 0.2 Eos % (Auto) 0.1 Baso % (Auto) 0.2 Absolute Neuts (auto) 7.6 Absolute Lymphs (auto) 0.87 Total Counted Not Reportable Sodium 147 H Potassium 3.0 L Chloride 114 H Carbon Dioxide 24.0 Anion Gap 9 BUN 9 Creatinine 0.68 Estim Creat Clear Calc 44.41 Est GFR (MDRD) Af Amer 109 Est GFR (MDRD) Non-Af 90 BUN/Creatinine Ratio 13.3 Glucose 123 H Calcium 7.2 L Phosphorus 2.1 L Magnesium 1.9 Total Bilirubin 0.30 AST 16 ALT 13 Alkaline Phosphatase 55 Total Protein 5.4 L Albumin 2.6 L Globulin 2.8 Albumin/Globulin Ratio 0.9 Medical Necessity - Tobacco Use Smoking Status: Never smoker Assessment/Plan All Active Problems (Last Updated 12/21/17 @ 08:49 by Diane Hopkins) Opioid withdrawal (Acute) Altered mental status (Acute) Acute metabolic encephalopathy (Acute) NSTEMI (non-ST elevated myocardial infarction) (Acute) Impressions 1. Altered mental status - suspect due to toxic encephalopathy related to acute opiate withdrawal exacerbated by receiving Narcan at an outside ED which lead to increasing agitation and ultimately to intubation and sedation. 2. chronic long standing RX drug addiction 3. Multiple Myeloma - treated by Dr. Renae. New lytic lesions in the Calvarium per CT report 4. Chronic anemia secondary to multiple myeloma and chemotherapy 5. Hypokalemia 6. Depression-Possibly undertreated 7. Nonischemic cardiomyopathy with moderate global hypokinesis of the left ventricle and an ejection fraction of 45% 8. Peripheral neuropathy 9. Hypertension 10. Hypocalcemia - on Pamidronate to control the Calcium 11. Abnormal chest x-ray with possible developing infiltrate, possibly secondary to aspiration, on the right side. Discussed on rounds with Dr. Brewer. No plans to extubate today. Weaning trial in the AM. Continue with Propofol and Fentanyl She does have chronic pain related to MM and will need pain medication at [place]. Her dtr knows that she or her brother must control/administer the pain medications. Start TF per director of field service's recommendation Supplement potassium and recheck Recheck the K tonight and get AM repeat labs. If she has a fever OR she develops and increasing WBC count start Zosyn for possible aspiration pneumonia Send a sputum culture Started on Seroquel for behavior control Attempted to look up a OARRS but there was no recent RX's? Code Visit Inpatient E&M: [id number] [facility] Hosp L3
--- NOTE | 2018-07-25 07:19 | PN_ITS ---
Patient Problems: Active and Suspected Problems (Last Updated 12/21/17 @ 08:49 by Diane Hopkins) Opioid withdrawal (Acute) Altered mental status (Acute) Subjective: The patient is a 73-year-old female with a past medical history of cardiomyopathy with a 45% ejection fraction and global hypokinesis, dementia, peripheral neuropathy, depression, hypertension, multiple myeloma, opiate dependence and chronic debility who was transferred to [facility] from an outside facility for acute mental status changes and agitation secondary to acute opiate withdrawal. She was ultimately intubated and sedated at the outside facility. CTB at the [facility] facility showed new lytic lesions in the calvarium. EKG showed a new LBBB. Troponin was normal. VS's on arrival to [facility] ICU were temperature 97.1, heart rate 108, blood pressure 193/98, respiratory rate 19 and she was 100% saturated on an FiO2 of 100%. Chest x-ray at admission shows patchy infiltrates, right greater than left. The endotracheal tube was in good position. Afebrile since admission. Blood pressures have ranged from 214/122 currently 128/54. 72 131. The pulse ox is currently 100% on a 35% FiO2. Fluid balance is +1541 since admission. All lab was personally reviewed. White blood cell count is 8.6 with a left shift. Hemoglobin is 8.5 with an MCV of 85.3 and an RDW of 16. Platelets are within normal limits. Sodium is high at 147 and potassium is 3.0 today. BUN is 9 with a creatinine of 0.68. Phosphorus is low at 2.1 and the calcium corrected for hypoalbuminemia is mildly decreased at 7.2. LFTs are unremarkable. Sputum Gram stain and culture are pending. Pt is intubated and currently sedated with 150mcg Fentanyl and 30 mcg Propofol....still very restless at times. Moving all extremities. I spoke with her dtr Nadia who is currently caring for her dad who was recently diagnosed with prostate CA and her mother. Apparently her mother has been addicted to prescription pain pills for 30 years and her has been keeping it from the rest of the family. She recently finished a months worth of pain medication in 2 weeks per the dtr. she has trouble sleeping at night and Nadia states she will take anything to get herself to sleep. - Physical Exam General: Well developed, Well nourished, - - Sedated and on the ventilator HEENT: Atraumatic, PERRLA, Normocephalic Neck: Supple, No JVD, Trachea Midline Lungs: Clear to auscultation Cardiovascular: Regular Rhythm, Normal S1, Normal S2, No murmurs, Tachycardic - when agitated Abdomen: Soft, Non-Distended, No Hepato-splenomegaly, Hypoactive Bowel Sounds, - - No guarding with palpation Extremities: No clubbing, No cyanosis, No edema Skin: No rashes, No breakdown Musculoskeletal: No Muscle Wasting Neurological: - - Moving all extremities, no facial asymmetry Vital Signs Temp Pulse Resp BP Pulse Ox 98.2 F 76 14 148/57 H 100 07/25/18 04:00 07/25/18 07:00 07/25/18 07:00 07/25/18 07:00 07/25/18 07:00 Oxygen Delivery Method Mechanical Ventilator Weight: 153 lb 7.068 oz Body Mass Index (BMI) 25.2 Intake and Output for Last 24 Hours 07/23/18 07/24/18 07/25/18 23:59 23:59 23:59 Intake Total 2621 / 2621 Output Total 1080 / 1080 Balance 1541 / 1541 Laboratory Tests Past 24 Hrs 07/25/18 07/25/18 05:05 05:05 WBC 8.6 RBC 3.34 L Hgb 8.5 L Hct 28.5 L MCV 85.3 MCH 25.4 L MCHC 29.8 L RDW 16.0 H RDW Differential 50.3 H Plt Count 193 MPV 9.2 Immature Gran % (Auto) 0.100 Neut % (Auto) 89.2 H Lymph % (Auto) 10.2 L [place] % (Auto) 0.2 Eos % (Auto) 0.1 Baso % (Auto) 0.2 Absolute Neuts (auto) 7.6 Absolute Lymphs (auto) 0.87 Total Counted Not Reportable Sodium 147 H Potassium 3.0 L Chloride 114 H Carbon Dioxide 24.0 Anion Gap 9 BUN 9 Creatinine 0.68 Estim Creat Clear Calc 44.41 Est GFR (MDRD) Af Amer 109 Est GFR (MDRD) Non-Af 90 BUN/Creatinine Ratio 13.3 Glucose 123 H Calcium 7.2 L Phosphorus 2.1 L Magnesium 1.9 Total Bilirubin 0.30 AST 16 ALT 13 Alkaline Phosphatase 55 Total Protein 5.4 L Albumin 2.6 L Globulin 2.8 Albumin/Globulin Ratio 0.9 Medical Necessity - Tobacco Use Smoking Status: Never smoker Assessment/Plan All Active Problems (Last Updated 12/21/17 @ 08:49 by Diane Hopkins) Opioid withdrawal (Acute) Altered mental status (Acute) Acute metabolic encephalopathy (Acute) NSTEMI (non-ST elevated myocardial infarction) (Acute) Impressions 1. Altered mental status - suspect due to toxic encephalopathy related to acute opiate withdrawal exacerbated by receiving Narcan at an outside ED which lead to increasing agitation and ultimately to intubation and sedation. 2. chronic long standing RX drug addiction 3. Multiple Myeloma - treated by Dr. Renae. New lytic lesions in the Calvarium per CT report 4. Chronic anemia secondary to multiple myeloma and chemotherapy 5. Hypokalemia 6. Depression-Possibly undertreated 7. Nonischemic cardiomyopathy with moderate global hypokinesis of the left ventricle and an ejection fraction of 45% 8. Peripheral neuropathy 9. Hypertension 10. Hypocalcemia - on Pamidronate to control the Calcium 11. Abnormal chest x-ray with possible developing infiltrate, possibly secondary to aspiration, on the right side. Discussed on rounds with Dr. Brewer. No plans to extubate today. Weaning trial in the AM. Continue with Propofol and Fentanyl She does have chronic pain related to MM and will need pain medication at [place]. Her dtr knows that she or her brother must control/administer the pain medications. Start TF per form tamper operator's recommendation Supplement potassium and recheck Recheck the K tonight and get AM repeat labs. If she has a fever OR she develops and increasing WBC count start Zosyn for possible aspiration pneumonia Send a sputum culture Started on Seroquel for behavior control Attempted to look up a OARRS but there was no recent RX's? Code Visit Inpatient E&M: [id number] [facility] Hosp L3
[2018-07-25 07:41] LABS: Base Excess -1 mmol/L (-2 to +2); Bicarbonate 22.4 mmol/L (22-26); Blood Gas Specimen Type ART; FI02 30; Mode A-C; O2 Delivery Device Vent; PEEP 5; PO2 91 mmHG (75-100); RR 14; SITE R Radial; SO2 98 % (95-99); Time Given 733; Total Carbon Dioxide 23 mmol/L; Vt 450; pCO2 30.9 mmHg (35-45); pH 7.47 (7.35-7.45)
[2018-07-25] MEDS: Chlorhexidine 15 ML PO ×2 (08:47→20:57)
[2018-07-25] MEDS: Enoxaparin 40 MG/0.4 ML Syringe SC (08:47)
[2018-07-25] MEDS: Polyethylene Glycol 3350 17 GM PACKET GT ×2 (11:00→20:56)
[2018-07-25] MEDS: Senna/Docusate Sodium 1 Tablet 2 TABLET GT ×2 (11:00→20:56)
[2018-07-25] MEDS: QUEtiapine 25 MG Tablet GT ×2 (11:00→20:56)
[2018-07-25] MEDS: Vital AF 1.2 Cal Liquid 1,000 ML 60 ML GT (11:00)
[2018-07-25] MEDS: 0.9% Normal Saline 1,000 ML 75 ML IV (19:34)
[2018-07-25 20:26] LABS: Anion Gap 6 (5-15); BUN 9 mg/dL (7-18); BUN/Creat Ratio 14.3 RATIO (10-20); Calcium,Total 6.7 mg/dL (8.5-10.1); Chloride 116 mmol/L (98-107); Creatinine, Serum 0.63 mg/dL (0.55-1.02); EST Glomerular Filtration Rate 98 mL/min (>60); Est Glom Filt Rate - Afr Amer 119 mL/min (>60); Estimated Creatinine Clearance 44.41 ml/min; Glucose 93 mg/dL (74-106); Potassium 3.5 mmol/L (3.5-5.1); Sodium Level 145 mmol/L (136-145)
[2018-07-25] MEDS: 0.9% NaCl Peripheral Flush Adult/Peds IV (20:56)
[2018-07-25] MEDS: Famotidine 20 MG Tablet GT (20:56)
[2018-07-26] VITALS (52 sets, daily range): BP systolic 110–185; BP diastolic 37–116; PULSE 53–725; RESP 14–21; TEMP 36.1–36.9; O2SAT 30–100
--- NOTE | 2018-07-26 03:51 | EKG12_ITS ---
Test Reason : ST CHANGES Blood Pressure : / mmHG Vent. Rate : 076 BPM Atrial Rate : 076 BPM P-R Int : 156 ms QRS Dur : 156 ms QT Int : 468 ms P-R-T Axes : 051 -38 111 degrees QTc Int : 526 ms Normal sinus rhythm Left axis deviation Left bundle branch block Abnormal ECG Confirmed by JORGE TESFAYE, NILSON ([id number]), art editor RIN STEPHEN ([id number]) on 07/28/2018 11:44:03 AM Referred By: XANDER Confirmed By:NILSON PATEL MD
[2018-07-26] MEDS: Propofol 10MG/Ml 1,000 MG/100 ML Bottle 4.122 MG CONT INF ×4 (05:01→23:22)
[2018-07-26] MEDS: CHLORHEXIDINE GLUC 2% CLOTH 1 EACH TOWELETTE TOPICAL (05:01)
[2018-07-26 05:19] LABS: Anion Gap 10 (5-15); BUN 9 mg/dL (7-18); BUN/Creat Ratio 15.9 RATIO (10-20); Calcium,Total 6.9 mg/dL (8.5-10.1); Chloride 115 mmol/L (98-107); Creatinine, Serum 0.56 mg/dL (0.55-1.02); EST Glomerular Filtration Rate 111 mL/min (>60); Est Glom Filt Rate - Afr Amer 135 mL/min (>60); Estimated Creatinine Clearance 44.41 ml/min; Glucose 106 mg/dL (74-106); Magnesium 1.8 mg/dL (1.6-2.6); Phosphorus 1.7 mg/dL (2.5-4.9); Potassium 3.7 mmol/L (3.5-5.1); Sodium Level 148 mmol/L (136-145)
[2018-07-26 05:23] LABS: Absolute Lymphocyte Count 0.33 X10^3/ul (0.83-4.51); Absolute Neutrophil Count 3.5 X10^3/uL (2.0-7.7); Basophil# 0.01 X10^3/uL; Basophil% 0.2 % (0-1); Eosinophil# 0.21 X10^3/uL; Eosinophils% 4.8 % (0-5); Hematocrit 27.9 % (37-47); Hemoglobin 8.2 g/dl (12.0-15.0); Lymphocyte # 0.33 X10^3/ul (4.0); Lymphocyte % 7.6 % (19-41); Mean Corp Hgb Conc 29.4 g/gl (32-36); Mean Corpuscular Hgb 25.3 pg (27.0-32.0); Mean Corpuscular Volume 86.1 fL (81-99); Mean Platelet Vol. 9.5 fl (6.2-12.0); Monocyte# 0.32 X10^3/uL; Monocyte% 7.4 % (0-10); Neutrophil # 3.46 X10^3/uL (2.7-7.7); Neutrophil % 79.8 % (47-70); Platelet Count 194 K/mm3 (150-450); RBC Distribution Width CV 16.3 % (11.6-14.6); RBC Distribution Width SD 49.3 fl (35.1-43.9); Red Blood Count 3.24 M/mm3 (4.2-5.4); White Blood Count 4.3 K/mm3 (4.4-11.0)
[2018-07-26 05:33] LABS: Differential Indicated SCAN CRITERIA MET; POSITIVE COUNT NO; POSITIVE DIFFERENTIAL YES; POSITIVE MORPHOLOGY NO
[2018-07-26] MEDS: fentaNYL drip 100 ML 2.5 MCG IV ×2 (06:08→21:41)
[2018-07-26] MEDS: 0.9% NaCl Peripheral Flush Adult/Peds IV (06:59)
--- NOTE | 2018-07-26 07:02 | PCM.PN.INT ---
Subjective: Patient did okay overnight. Patient did not tolerate spontaneous awakening trial secondary to tachycardia and agitation. Patient has remained hemodynamically stable on mechanical ventilation, but nursing reports patient has been difficult to sedate. Patient has had decreased urine output overnight and was placed on IV fluids, in addition to her tube feeds. General: - - RASS +1. Appears older than stated age. HEENT: Atraumatic, PERRLA, EOMI, Normocephalic, - - Scleral injection without icterus. NG in place. Oral: Moist Mucosa, No Gingival or Mucosal Lesions/ Ulcerations Neck: Supple, No JVD, No Nodes, Trachea Midline Lungs: No rhonchi, No wheeze, No rales, Diminished, - - Symmetric expansion. No dullness to percussion. Cardiovascular: Normal S1, Normal S2, No murmurs, No rub noted, No Gallop, Tachycardic Abdomen: Bowel Sounds Present, Soft, Non Tender, Non-Distended Extremities: No clubbing, No cyanosis, No edema, Capillary Refill Less than 3 Seconds Skin: No rashes, No breakdown Musculoskeletal: No Tenderness to Palpation of Joints or Extremities Lymphatic: No Cervical, Supraclavicular, or Inguinal Adenopathy Neurological: Cranial nerves II-XII grossly intact, Neuro grossly intact, Motor Exam 5/5 strength throughout Psych/Mental Status: Anxious, Impulsive, Restless Vital Signs Temp Pulse Resp BP Pulse Ox 36.1 C L 62 14 139/42 H 97 07/26/18 04:00 07/26/18 06:00 07/26/18 06:00 07/26/18 06:00 07/26/18 06:00 Oxygen Delivery Method Mechanical Ventilator Weight: 73 kg Body Mass Index (BMI) 25.2 Intake and Output for Last 24 Hours 07/24/18 07/25/18 07/26/18 23:59 23:59 23:59 Intake Total 4749.2 / 4749.2 2340.9 / 2340.9 Output Total 1245 / 1245 100 / 100 Balance 3504.2 / 3504.2 2240.9 / 2240.9 Labs (Last 48 Hours) 07/25/18 07/25/18 07/25/18 05:05 05:05 07:34 WBC 8.6 RBC 3.34 L Hgb 8.5 L Hct 28.5 L MCV 85.3 MCH 25.4 L MCHC 29.8 L RDW 16.0 H RDW Differential 50.3 H Plt Count 193 MPV 9.2 Immature Gran % (Auto) 0.100 Neut % (Auto) 89.2 H Lymph % (Auto) 10.2 L [place] % (Auto) 0.2 Eos % (Auto) 0.1 Baso % (Auto) 0.2 Absolute Neuts (auto) 7.6 Absolute Lymphs (auto) 0.87 Total Counted Not Reportable Specimen Type ART Sample Site R Radial pH 7.47 H Bicarbonate Actual 22.4 POC Total CO2 23 Base Excess -1 O2 Saturation 98 O2 % 30 ABG pCO2 30.9 L ABG pO2 91 Respiration Rate 14 O2 Delivery Device Vent Vent Mode A-C Tidal Volume 450 POC PEEP 5 Blood Gas Notified Whom ICU MD Blood Gas Notified Time 733 Sodium 147 H Potassium 3.0 L Chloride 114 H Carbon Dioxide 24.0 Anion Gap 9 BUN 9 Creatinine 0.68 Estim Creat Clear Calc 44.41 Est GFR (MDRD) Af Amer 109 Est GFR (MDRD) Non-Af 90 BUN/Creatinine Ratio 13.3 Glucose 123 H Calcium 7.2 L Phosphorus 2.1 L Magnesium 1.9 Total Bilirubin 0.30 AST 16 ALT 13 Alkaline Phosphatase 55 Total Protein 5.4 L Albumin 2.6 L Globulin 2.8 Albumin/Globulin Ratio 0.9 07/25/18 07/26/18 07/26/18 20:00 04:55 04:55 WBC 4.3 L RBC 3.24 L Hgb 8.2 L Hct 27.9 L MCV 86.1 MCH 25.3 L MCHC 29.4 L RDW 16.3 H RDW Differential 49.3 H Plt Count 194 MPV 9.5 Immature Gran % (Auto) 0.200 Neut % (Auto) 79.8 H Lymph % (Auto) 7.6 L [place] % (Auto) 7.4 Eos % (Auto) 4.8 Baso % (Auto) 0.2 Absolute Neuts (auto) 3.5 Absolute Lymphs (auto) 0.33 L Total Counted Pending Specimen Type Sample Site pH Bicarbonate Actual POC Total CO2 Base Excess O2 Saturation O2 % ABG pCO2 ABG pO2 Respiration Rate O2 Delivery Device Vent Mode Tidal Volume POC PEEP Blood Gas Notified Whom Blood Gas Notified Time Sodium 145 148 H Potassium 3.5 3.7 Chloride 116 H 115 H Carbon Dioxide 23.0 23.0 Anion Gap 6 10 BUN 9 9 Creatinine 0.63 0.56 Estim Creat Clear Calc 44.41 44.41 Est GFR (MDRD) Af Amer 119 135 Est GFR (MDRD) Non-Af 98 111 BUN/Creatinine Ratio 14.3 15.9 Glucose 93 106 Calcium 6.7 L 6.9 L Phosphorus 1.7 L Magnesium 1.8 Total Bilirubin AST ALT Alkaline Phosphatase Total Protein Albumin Globulin Albumin/Globulin Ratio Microbiology 07/24/18 20:00 Sputum, Induced/Lukens Gram Stain - Final Medical Necessity - Tobacco Use Smoking Status: Never smoker Assessment/Plan All Active Problems (Last Updated 12/21/17 @ 08:49 by Diane Hopkins) Opioid withdrawal (Acute) Altered mental status (Acute) Acute metabolic encephalopathy (Acute) NSTEMI (non-ST elevated myocardial infarction) (Acute) RECOMMENDATIONS: 1. Attempt transition to Precedex therapy 2. Wean FiO2 to maintain oxygen saturations at or above 90%. 3. Increase Seroquel dosing 4. Possibly increase free water with tube feeds and discontinue IV fluids 5. Plan for paired spontaneous awakening and breathing trials beginning tomorrow. 6. Phosphorus supplementation IMPRESSIONS: 1. Acute respiratory failure Unclear etiology at this time. Patient is on significant sedation and remains significantly agitated. Patient was unable to tolerate spontaneous awakening trial. Will attempt transition to Precedex therapy to facilitate spontaneous awakening trial. We will also increase patient's Seroquel dosing. Patient is receiving IV fluids in addition to tube feeds. Likely transition to increase free water flushes with discontinuation of IV fluids to avoid any fluid overload. Oxygenation has been doing well at this time. Sputum Gram stain is not suggestive of infectious process at this time. Patient did have a right lower lobe infiltrate versus atelectasis on presentation. 2. Encephalopathy Patient continues to be significantly confused and agitated. Patient did have new lytic lesions reported on outside CAT scan and does have a history of multiple myeloma. This is followed by the [facility]. Will attempt to normalize electrolytes. Continue with delirium protocol. 3. Personal history of multiple myeloma The patient is currently followed by Dr. Ybarra at [facility]. Consultation may need to be placed to them once patient more stable in light of the lytic lesions noted on CT head. 4. Depression/anxiety/dementia/hypertension Complicates care, management, recovery and prognosis. Recommend physical therapy evaluation once medically stabilized. Okay from my perspective to begin tube feeds today. TIME: 35 minutes of critical care time, independent of procedures, was spent addressing the patient's acute respiratory failure, encephalopathy, history of multiple myeloma, review of all data and collaboration with the care team. (6 AM to 7 AM) Code Visit 9xxxx: [id number] Critical care first hour
[2018-07-26 07:21] LABS: Differential Comment SCANNED
[2018-07-26] MEDS: Enoxaparin 40 MG/0.4 ML Syringe SC (08:10)
[2018-07-26] MEDS: QUEtiapine 25 MG Tablet 50 MG GT ×2 (08:10→21:40)
[2018-07-26] MEDS: Senna/Docusate Sodium 1 Tablet 2 TABLET GT ×2 (08:11→21:40)
[2018-07-26] MEDS: Chlorhexidine 15 ML PO ×2 (08:11→21:40)
[2018-07-26] MEDS: 0.9% Normal Saline 1,000 ML 75 ML IV (08:11)
[2018-07-26] MEDS: Famotidine 20 MG Tablet GT ×2 (08:11→21:40)
[2018-07-26] MEDS: Polyethylene Glycol 3350 17 GM PACKET GT ×2 (08:11→21:40)
--- NOTE | 2018-07-26 10:10 | CASEMGMT ---
Addendum entered by Carmine Lambert 07/26/18 13:03: Lizbeth also stated that the family has an appt to meet with Palliative Care/Hospice for both pt and pt's on August 02 @ 2 or 2:30 PM. Luann CABELLO, made aware. Original Note: RN JAMES COUPLING MACHINE OPERATOR CM to room to meet with daughter, Lizbeth/MALGORZATA, for initial transition planning/care coordination assessment, as pt is intubated/sedated. OZ RAMIREZ introduced self and role at [facility]. Lizbeth voices understanding and consents to assessment at this time. Care providers, pharmacy, and demographics verified/updated at this time. PCP: Simran De La Cruz Pharmacy: [facility]. Insurance: [employer], Other commercial--Lizbeth does not remember name Prescription Benefit: [employer] Living Will/HPOA: Has both LW and HCPOA, who is pt's daughter, Lizbeth Avila, and pt's son, Sonny Li. Copies not on pt's chart. Lizbeth states she is aware and was going to bring in the paperwork today but forgot. She states she will try and remember to bring it in soon. LNOK:, Alise Li. 2 adult children: Lizbeth and Sonny. Living Arrangements: Pt lives with her in one-story home w/2 steps to enter. Per Lizbeth, pt's recently diagnosed w/terminal cancer. Pt was independent prior to hospitalization. Lizbeth states she goes daily to her parents' home to check on things and that her 16-yr-old daughter has been staying with pt's during the day to assist with meals/care for him while pt has been hospitalized. Lizbeth states pt's is starting to need more care and expressed how she has a lot to manage with helping to take care of her father and with her mother being hospitalized. Lizbeth states her has also been ill/hospitalized over the past year and he is currently receiving [facility] himself. Emotional support provided for Lizbeth. Also given information on [facility]gen[facility] for Aide services, as she states she has been interested in getting more help for her father (pt's ). Lizbeth also provided with Medical Alert button information. She voiced appreciation. Luann CABELLO, notified of Lizbeth's and pt's stressors/medical issues and above information. Transportation: Lizbeth provides transportation for both pt and pt's (Lizbeth's father). DME: Pt has a [id number] in the shower. Sh also has the following DME but did not use: cane, walker, W/C. Per Lizbeth, she is not aware of any DME pt may need once she returns home. HHC/SNF: Hx: [facility] about 2 yrs ago. No history of HHC. Lizbeth states prefers for pt to go to [facility] @ discharge if she is needing SNF placement, as her father is unable to assist/help take care of her. Luann CABELLO, notified of Lizbeth's preference of [facility] for pt if SNF is recommended @ discharge. CM to follow for home oxygen needs and any further discharge planning/needs. Lizbeth voices no further concerns/needs at this time. Advised pt to ask for CM if any further questions/concerns/needs arise. Voices understanding. PLAN: [facility] if requires SNF @ discharge. Pt remains intubated and progress is unknown at this time. Toya BSN RN CM
[2018-07-26] MEDS: Vital AF 1.2 Cal Liquid 1,000 ML 60 ML GT (10:56)
--- NOTE | 2018-07-26 11:26 | CASEMGMT ---
Daughter plans to bring in POA paperwork. CASH Bauer
--- NOTE | 2018-07-26 11:32 | PCM.PN.HOSP ---
Patient Problems: Active and Suspected Problems (Last Updated 12/21/17 @ 08:49 by Diane Hopkins) Opioid withdrawal (Acute) Altered mental status (Acute) Subjective: Intubated and sedated. She is writhing in bed and she did not tolerate the spontaneous awakening trial today. Vitals/I&O's: Vital Signs Temp Pulse Resp BP Pulse Ox 98.5 F 74 14 185/73 H 98 07/26/18 08:00 07/26/18 11:30 07/26/18 11:15 07/26/18 11:15 07/26/18 11:15 Oxygen Delivery Method Mechanical Ventilator Weight: 160 lb 14.999 oz Body Mass Index (BMI) 25.2 Intake and Output for Last 24 Hours 07/24/18 07/25/18 07/26/18 23:59 23:59 23:59 Intake Total 4749.2 / 4749.2 3320.9 / 3320.9 Output Total 1245 / 1245 500 / 500 Balance 3504.2 / 3504.2 2820.9 / 2820.9 General: - - Sedated and intubated HEENT: Atraumatic, PERRLA, Normocephalic Oral: Dry Mucosa Neck: Supple, No JVD Lungs: Clear to auscultation, Normal air movement, No rhonchi, No wheeze, No rales Cardiovascular: Regular Rhythm, Normal S1, Normal S2, No murmurs, Tachycardic Abdomen: Soft, Non-Distended, No Hepato-splenomegaly Extremities: No edema, Capillary Refill Less than 3 Seconds Skin: No rashes, No breakdown Neurological: - - Unable to obtain Psych/Mental Status: - - Unable to obtain Microbiology Past 72 Hours 07/24/18 20:00 Sputum, Induced/Lukens Gram Stain - Final Laboratory Results 07/25/18 20:00: Sodium 145, Potassium 3.5, Chloride 116 H, Carbon Dioxide 23.0, Anion Gap 6, BUN 9, Creatinine 0.63, Estim Creat Clear Calc 44.41, Est GFR (MDRD) Af Amer 119, Est GFR (MDRD) Non-Af 98, BUN/Creatinine Ratio 14.3, Glucose 93, Calcium 6.7 L 07/26/18 04:55: WBC 4.3 L, RBC 3.24 L, Hgb 8.2 L, Hct 27.9 L, MCV 86.1, MCH 25.3 L, MCHC 29.4 L, RDW 16.3 H, RDW Differential 49.3 H, Plt Count 194, MPV 9.5, Immature Gran % (Auto) 0.200, Neut % (Auto) 79.8 H, Lymph % (Auto) 7.6 L, [place] % (Auto) 7.4, Eos % (Auto) 4.8, Baso % (Auto) 0.2, Absolute Neuts (auto) 3.5, Absolute Lymphs (auto) 0.33 L, Total Counted Not Reportable, Differential Comment SCANNED 07/26/18 04:55: Sodium 148 H, Potassium 3.7, Chloride 115 H, Carbon Dioxide 23.0, Anion Gap 10, BUN 9, Creatinine 0.56, Estim Creat Clear Calc 44.41, Est GFR (MDRD) Af Amer 135, Est GFR (MDRD) Non-Af 111, BUN/Creatinine Ratio 15.9, Glucose 106, Calcium 6.9 L, Phosphorus 1.7 L, Magnesium 1.8 Current Medications Albuterol Sulfate (Ventolin Aerosols) 2.5 mg INHALATION Q2H PRN PRN PRN Reason: SOB/WHEEZING Chlorhexidine Gluconate () 15 ml PO BID [facility] Last Admin: 07/26/18 08:11 Dose: 15 ml Chlorhexidine Gluconate () 1 each TOPICAL DAILY [facility] Last Admin: 07/26/18 05:01 Dose: 1 each Dextrose (D50w Syringe) 0 gm IV X1 PRN; Protocol PRN Reason: Hypoglycemia Enoxaparin Sodium (Lovenox) 40 mg SC DAILY@1000 [facility] Last Admin: 07/26/18 08:10 Dose: 40 mg Famotidine (Pepcid) 20 mg GT BID [facility] Last Admin: 07/26/18 08:11 Dose: 20 mg Glucagon () 1 mg IM .X1 PRN PRN Reason: Hypoglycemia Fentanyl () 100 mls @ 2.5 mls/hr IV .Q40H [facility] Last Admin: 07/26/18 06:08 Dose: 2.5 mls/hr Propofol (Diprivan) 1,000 mg in 100 mls @ 4.122 mls/hr CONT INF .Q12H [facility] Last Admin: 07/26/18 09:31 Dose: 4.122 mls/hr Sodium Chloride () 250 mls @ 15 mls/hr IV .[id number] PRN PRN Reason: SALINE FLUSH Sodium Chloride () 250 mls @ 15 mls/hr IV .[id number] PRN PRN Reason: SALINE FLUSH Sodium Chloride () 1,000 mls @ 75 mls/hr IV .[id number] [facility] Last Admin: 07/26/18 08:11 Dose: 75 mls/hr Potassium Phosphate 30 mm/ (Sodium Chloride) 260 mls @ 42 mls/hr IV X1 ONE Stop: 07/26/18 12:39 Last Admin: 07/26/18 06:58 Dose: 42 mls/hr Enteral Nutritional Formula (Vital Af 1.2 Damien Liquid) 1,000 mls @ 60 mls/hr GT .[id number] [facility] Last Admin: 07/26/18 10:56 Dose: 60 mls/hr Dexmedetomidine HCl 400 mcg/ (Sodium Chloride) 100 mls @ 9.13 mls/hr CONT INF .[id number] [facility] Last Admin: 07/26/18 11:03 Dose: 9.13 mls/hr Ondansetron HCl (Zofran) 4 mg IV Q6H PRN PRN PRN Reason: Nausea Polyethylene Glycol (Miralax) 17 gm GT BID [facility] Last Admin: 07/26/18 08:11 Dose: 17 gm Quetiapine Fumarate (Seroquel) 50 mg GT BID [facility] Last Admin: 07/26/18 08:10 Dose: 50 mg Senna/Docusate Sodium (Senokot-S, Blanca-Colace) 2 tablet GT BID [facility] Last Admin: 07/26/18 08:11 Dose: 2 tablet Sodium Chloride () 5 - 15 ml IV UD PRN PRN Reason: SALINE FLUSH Last Admin: 07/26/18 06:59 Dose: 10 ml Medical Necessity - Tobacco Use Smoking Status: Never smoker Assessment/Plan All Active Problems (Last Updated 12/21/17 @ 08:49 by Diane Hopkins) Opioid withdrawal (Acute) Altered mental status (Acute) Acute metabolic encephalopathy (Acute) NSTEMI (non-ST elevated myocardial infarction) (Acute) 1. Altered mental status secondary to acute opiate withdrawal likely toxic encephalopathy -As described in the HPI, she has been on chronic narcotics for very long time and apparently ran out of her fentanyl patch and OxyContin 2 or 3 days prior to -She was given a dose of Narcan in the ER to no avail and she is currently intubated and sedated -She had a CT scan at the outside facility of her head which showed potentially new lytic lesions in her calvarium -Consult to the business technology analyst for vent management -Baker is in place -Pepcid IV twice daily GI prophylaxis -Continue with tube feeds per dietary -Continue with propofol and fentanyl, also Seroquel for her agitation. 2. Multiple myeloma/chronic anemia/hypocalcemia -We will likely need to contact [facility] oncology to obtain records -Currently I am unsure as to how extensive any metastatic disease is, or what treatments she has completed or is currently on -We will currently continue with fentanyl drip while intubated to help control pain 3. Nonobstructive coronary artery disease/history of left heart cath/left bundle branch block/HTN -Left bundle branch block does not appear to be new, therefore will not consult cardiology -We will obtain serial cardiac enzymes -She had a cardiac cath in 2018 with an EF of 45% and moderate left ventricular systolic dysfunction -No history of heart failure, she may be on Lasix 20 mg daily, currently we will continue with IV fluids since she is not eating or drinking -Continue her home medications once verified 4. Depression/anxiety/dementia -Unsure as to how extensive her dementia is and whether or not it is progressive -We will continue her Celexa once medication is confirmed DVT: Lovenox and SCDs Code Visit Inpatient E&M: 03455 Subs Hosp L2
--- NOTE | 2018-07-26 11:37 | PN_ITS ---
Patient Problems: Active and Suspected Problems (Last Updated 12/21/17 @ 08:49 by Diane Hopkins) Opioid withdrawal (Acute) Altered mental status (Acute) Subjective: Intubated and sedated. She is writhing in bed and she did not tolerate the spontaneous awakening trial today. Vitals/I&O's: Vital Signs Temp Pulse Resp BP Pulse Ox 98.5 F 74 14 185/73 H 98 07/26/18 08:00 07/26/18 11:30 07/26/18 11:15 07/26/18 11:15 07/26/18 11:15 Oxygen Delivery Method Mechanical Ventilator Weight: 160 lb 14.999 oz Body Mass Index (BMI) 25.2 Intake and Output for Last 24 Hours 07/24/18 07/25/18 07/26/18 23:59 23:59 23:59 Intake Total 4749.2 / 4749.2 3320.9 / 3320.9 Output Total 1245 / 1245 500 / 500 Balance 3504.2 / 3504.2 2820.9 / 2820.9 General: - - Sedated and intubated HEENT: Atraumatic, PERRLA, Normocephalic Oral: Dry Mucosa Neck: Supple, No JVD Lungs: Clear to auscultation, Normal air movement, No rhonchi, No wheeze, No rales Cardiovascular: Regular Rhythm, Normal S1, Normal S2, No murmurs, Tachycardic Abdomen: Soft, Non-Distended, No Hepato-splenomegaly Extremities: No edema, Capillary Refill Less than 3 Seconds Skin: No rashes, No breakdown Neurological: - - Unable to obtain Psych/Mental Status: - - Unable to obtain Microbiology Past 72 Hours 07/24/18 20:00 Sputum, Induced/Lukens Gram Stain - Final Laboratory Results 07/25/18 20:00: Sodium 145, Potassium 3.5, Chloride 116 H, Carbon Dioxide 23.0, Anion Gap 6, BUN 9, Creatinine 0.63, Estim Creat Clear Calc 44.41, Est GFR (MDRD) Af Amer 119, Est GFR (MDRD) Non-Af 98, BUN/Creatinine Ratio 14.3, Glucose 93, Calcium 6.7 L 07/26/18 04:55: WBC 4.3 L, RBC 3.24 L, Hgb 8.2 L, Hct 27.9 L, MCV 86.1, MCH 25.3 L, MCHC 29.4 L, RDW 16.3 H, RDW Differential 49.3 H, Plt Count 194, MPV 9.5, Immature Gran % (Auto) 0.200, Neut % (Auto) 79.8 H, Lymph % (Auto) 7.6 L, [place] % (Auto) 7.4, Eos % (Auto) 4.8, Baso % (Auto) 0.2, Absolute Neuts (auto) 3.5, Absolute Lymphs (auto) 0.33 L, Total Counted Not Reportable, Differential Comment SCANNED 07/26/18 04:55: Sodium 148 H, Potassium 3.7, Chloride 115 H, Carbon Dioxide 23.0, Anion Gap 10, BUN 9, Creatinine 0.56, Estim Creat Clear Calc 44.41, Est GFR (MDRD) Af Amer 135, Est GFR (MDRD) Non-Af 111, BUN/Creatinine Ratio 15.9, Glucose 106, Calcium 6.9 L, Phosphorus 1.7 L, Magnesium 1.8 Current Medications Albuterol Sulfate (Ventolin Aerosols) 2.5 mg INHALATION Q2H PRN PRN PRN Reason: SOB/WHEEZING Chlorhexidine Gluconate () 15 ml PO BID [facility] Last Admin: 07/26/18 08:11 Dose: 15 ml Chlorhexidine Gluconate () 1 each TOPICAL DAILY [facility] Last Admin: 07/26/18 05:01 Dose: 1 each Dextrose (D50w Syringe) 0 gm IV X1 PRN; Protocol PRN Reason: Hypoglycemia Enoxaparin Sodium (Lovenox) 40 mg SC DAILY@1000 [facility] Last Admin: 07/26/18 08:10 Dose: 40 mg Famotidine (Pepcid) 20 mg GT BID [facility] Last Admin: 07/26/18 08:11 Dose: 20 mg Glucagon () 1 mg IM .X1 PRN PRN Reason: Hypoglycemia Fentanyl () 100 mls @ 2.5 mls/hr IV .Q40H [facility] Last Admin: 07/26/18 06:08 Dose: 2.5 mls/hr Propofol (Diprivan) 1,000 mg in 100 mls @ 4.122 mls/hr CONT INF .Q12H [facility] Last Admin: 07/26/18 09:31 Dose: 4.122 mls/hr Sodium Chloride () 250 mls @ 15 mls/hr IV .[id number] PRN PRN Reason: SALINE FLUSH Sodium Chloride () 250 mls @ 15 mls/hr IV .[id number] PRN PRN Reason: SALINE FLUSH Sodium Chloride () 1,000 mls @ 75 mls/hr IV .[id number] [facility] Last Admin: 07/26/18 08:11 Dose: 75 mls/hr Potassium Phosphate 30 mm/ (Sodium Chloride) 260 mls @ 42 mls/hr IV X1 ONE Stop: 07/26/18 12:39 Last Admin: 07/26/18 06:58 Dose: 42 mls/hr Enteral Nutritional Formula (Vital Af 1.2 Damien Liquid) 1,000 mls @ 60 mls/hr GT .[id number] [facility] Last Admin: 07/26/18 10:56 Dose: 60 mls/hr Dexmedetomidine HCl 400 mcg/ (Sodium Chloride) 100 mls @ 9.13 mls/hr CONT INF .[id number] [facility] Last Admin: 07/26/18 11:03 Dose: 9.13 mls/hr Ondansetron HCl (Zofran) 4 mg IV Q6H PRN PRN PRN Reason: Nausea Polyethylene Glycol (Miralax) 17 gm GT BID [facility] Last Admin: 07/26/18 08:11 Dose: 17 gm Quetiapine Fumarate (Seroquel) 50 mg GT BID [facility] Last Admin: 07/26/18 08:10 Dose: 50 mg Senna/Docusate Sodium (Senokot-S, Blanca-Colace) 2 tablet GT BID [facility] Last Admin: 07/26/18 08:11 Dose: 2 tablet Sodium Chloride () 5 - 15 ml IV UD PRN PRN Reason: SALINE FLUSH Last Admin: 07/26/18 06:59 Dose: 10 ml Medical Necessity - Tobacco Use Smoking Status: Never smoker Assessment/Plan All Active Problems (Last Updated 12/21/17 @ 08:49 by Diane Hopkins) Opioid withdrawal (Acute) Altered mental status (Acute) Acute metabolic encephalopathy (Acute) NSTEMI (non-ST elevated myocardial infarction) (Acute) 1. Altered mental status secondary to acute opiate withdrawal likely toxic encephalopathy -As described in the HPI, she has been on chronic narcotics for very long time and apparently ran out of her fentanyl patch and OxyContin 2 or 3 days prior to -She was given a dose of Narcan in the ER to no avail and she is currently intubated and sedated -She had a CT scan at the outside facility of her head which showed potentially new lytic lesions in her calvarium -Consult to the coat check attendant for vent management -Baker is in place -Pepcid IV twice daily GI prophylaxis -Continue with tube feeds per dietary -Continue with propofol and fentanyl, also Seroquel for her agitation. 2. Multiple myeloma/chronic anemia/hypocalcemia -We will likely need to contact [facility] oncology to obtain records -Currently I am unsure as to how extensive any metastatic disease is, or what treatments she has completed or is currently on -We will currently continue with fentanyl drip while intubated to help control pain 3. Nonobstructive coronary artery disease/history of left heart cath/left bundle branch block/HTN -Left bundle branch block does not appear to be new, therefore will not consult cardiology -We will obtain serial cardiac enzymes -She had a cardiac cath in 2018 with an EF of 45% and moderate left ventricular systolic dysfunction -No history of heart failure, she may be on Lasix 20 mg daily, currently we will continue with IV fluids since she is not eating or drinking -Continue her home medications once verified 4. Depression/anxiety/dementia -Unsure as to how extensive her dementia is and whether or not it is progressive -We will continue her Celexa once medication is confirmed DVT: Lovenox and SCDs Code Visit Inpatient E&M: 79218 Subs Hosp L2
--- NOTE | 2018-07-26 13:03 | CASEMGMT ---
Addendum entered by Luann Daigle 07/26/18 14:11: [facility] anticipates being able to take pt. Yudelka asked if pt is still on a cancer medication at home(she was on this the last time she was there), for family to bring it in. SW called daughterLizbeth, message left. CASH Bauer Original Note: Received referral, pt's daughter would like pt to go to [facility] at discharge. Also, daughter has a lot going on at present, may benefit from support. SW called [facility], faxed referral. Daughter has left ICU, SW let ICU staff know to call SW should daughter return today. CASH Bauer
[2018-07-27] VITALS (41 sets, daily range): BP systolic 86–197; BP diastolic 46–145; PULSE 65–143; RESP 14–124; TEMP 36.1–36.6; O2SAT 2–126
[2018-07-27] MEDS: fentaNYL drip 100 ML 2.5 MCG IV (04:26)
[2018-07-27 04:28] LABS: Absolute Lymphocyte Count 0.34 X10^3/ul (0.83-4.51); Absolute Neutrophil Count 4.5 X10^3/uL (2.0-7.7); Basophil# 0.02 X10^3/uL; Basophil% 0.4 % (0-1); Eosinophil# 0.34 X10^3/uL; Hematocrit 27.9 % (37-47); Hemoglobin 8.5 g/dl (12.0-15.0); Lymphocyte # 0.34 X10^3/ul (4.0); Mean Corp Hgb Conc 30.5 g/gl (32-36); Mean Corpuscular Volume 85.3 fL (81-99); Mean Platelet Vol. 9.9 fl (6.2-12.0); Monocyte# 0.43 X10^3/uL; Monocyte% 7.6 % (0-10); Neutrophil # 4.53 X10^3/uL (2.7-7.7); Neutrophil % 79.8 % (47-70); Platelet Count 196 K/mm3 (150-450); RBC Distribution Width CV 16.3 % (11.6-14.6); Red Blood Count 3.27 M/mm3 (4.2-5.4); White Blood Count 5.7 K/mm3 (4.4-11.0)
[2018-07-27 04:32] LABS: Anion Gap 10 (5-15); BUN 8 mg/dL (7-18); BUN/Creat Ratio 16.4 RATIO (10-20); Calcium,Total 7.4 mg/dL (8.5-10.1); Chloride 113 mmol/L (98-107); Creatinine, Serum 0.49 mg/dL (0.55-1.02); Differential Indicated SCAN CRITERIA MET; EST Glomerular Filtration Rate 131 mL/min (>60); Est Glom Filt Rate - Afr Amer 159 mL/min (>60); Estimated Creatinine Clearance 44.41 ml/min; Glucose 115 mg/dL (74-106); POSITIVE COUNT NO; POSITIVE DIFFERENTIAL YES; POSITIVE MORPHOLOGY NO; Potassium 3.8 mmol/L (3.5-5.1); Sodium Level 146 mmol/L (136-145)
[2018-07-27 04:53] LABS: Differential Comment SCANNED
[2018-07-27] MEDS: Propofol 10MG/Ml 1,000 MG/100 ML Bottle 4.122 MG CONT INF (05:52)
[2018-07-27] MEDS: CHLORHEXIDINE GLUC 2% CLOTH 1 EACH TOWELETTE TOPICAL ×2 (05:52→08:14)
[2018-07-27 06:02] LABS: Magnesium 1.9 mg/dL (1.6-2.6); Phosphorus 2.8 mg/dL (2.5-4.9)
[2018-07-27] MEDS: Chlorhexidine 15 ML PO (08:14)
[2018-07-27] MEDS: Enoxaparin 40 MG/0.4 ML Syringe SC (08:15)
[2018-07-27] MEDS: Polyethylene Glycol 3350 17 GM PACKET GT (08:16)
[2018-07-27] MEDS: Famotidine 20 MG Tablet GT (08:16)
[2018-07-27] MEDS: QUEtiapine 25 MG Tablet 50 MG GT (08:16)
[2018-07-27] MEDS: Senna/Docusate Sodium 1 Tablet 2 TABLET GT (08:16)
--- NOTE | 2018-07-27 09:31 | PCM.PN.HOSP ---
Patient Problems: Active and Suspected Problems (Last Updated 12/21/17 @ 08:49 by Diane Hopkins) Opioid withdrawal (Acute) Altered mental status (Acute) Subjective: Intubated and sedated. Opening her eyes a little bit this morning Vitals/I&O's: Vital Signs Temp Pulse Resp BP Pulse Ox 97.9 F 89 14 170/59 H 96 07/27/18 04:00 07/27/18 08:00 07/27/18 07:00 07/27/18 07:00 07/27/18 06:58 Oxygen Delivery Method Room Air Weight: 164 lb 7.437 oz Body Mass Index (BMI) 25.2 Intake and Output for Last 24 Hours 07/25/18 07/26/18 07/27/18 23:59 23:59 23:59 Intake Total 4749.2 / 4749.2 5164.9 / 5164.9 1029 / 1029 Output Total 1245 / 1245 1950 / 1950 450 / 450 Balance 3504.2 / 3504.2 3214.9 / 3214.9 579 / 579 General: - - Sedated and intubated HEENT: Atraumatic, PERRLA, Normocephalic Oral: Dry Mucosa Neck: Supple, No JVD Lungs: Normal air movement, No wheeze, No rales, coarse breath sounds bilaterally Cardiovascular: Regular Rhythm, Normal S1, Normal S2, No murmurs, Tachycardic Abdomen: Soft, Non-Distended, No Hepato-splenomegaly Extremities: No edema, Capillary Refill Less than 3 Seconds Skin: No rashes, No breakdown Neurological: - - Unable to obtain Psych/Mental Status: - - Unable to obtain Microbiology Past 72 Hours 07/24/18 20:00 Sputum, Induced/Lukens Gram Stain - Final 07/24/18 20:00 Sputum, Induced/Lukens Respiratory Culture - Final Laboratory Results 07/27/18 04:10: WBC 5.7, RBC 3.27 L, Hgb 8.5 L, Hct 27.9 L, MCV 85.3, MCH 26.0 L, MCHC 30.5 L, RDW 16.3 H, RDW Differential 49.0 H, Plt Count 196, MPV 9.9, Immature Gran % (Auto) 0.200, Neut % (Auto) 79.8 H, Lymph % (Auto) 6.0 L, [place] % (Auto) 7.6, Eos % (Auto) 6.0 H, Baso % (Auto) 0.4, Absolute Neuts (auto) 4.5, Absolute Lymphs (auto) 0.34 L, Total Counted Not Reportable, Differential Comment SCANNED 07/27/18 04:10: Sodium 146 H, Potassium 3.8, Chloride 113 H, Carbon Dioxide 23.0, Anion Gap 10, BUN 8, Creatinine 0.49 L, Estim Creat Clear Calc 44.41, Est GFR (MDRD) Af Amer 159, Est GFR (MDRD) Non-Af 131, BUN/Creatinine Ratio 16.4, Glucose 115 H, Calcium 7.4 L 07/27/18 04:10: Phosphorus 2.8, Magnesium 1.9 Current Medications Albuterol Sulfate (Ventolin Aerosols) 2.5 mg INHALATION Q2H PRN PRN PRN Reason: SOB/WHEEZING Amlodipine Besylate (Norvasc) 5 mg PO DAILY [facility] Aspirin (Ecotrin) 81 mg PO DAILY@0800 [facility] Chlorhexidine Gluconate () 15 ml PO BID [facility] Last Admin: 07/27/18 08:14 Dose: 15 ml Chlorhexidine Gluconate () 1 each TOPICAL DAILY [facility] Last Admin: 07/27/18 08:14 Dose: 1 each Citalopram Hydrobromide (Celexa) 10 mg PO DAILY [facility] Dextrose (D50w Syringe) 0 gm IV X1 PRN; Protocol PRN Reason: Hypoglycemia Enoxaparin Sodium (Lovenox) 40 mg SC DAILY@1000 [facility] Last Admin: 07/27/18 08:15 Dose: 40 mg Famotidine (Pepcid) 20 mg GT BID [facility] Last Admin: 07/27/18 08:16 Dose: 20 mg Furosemide (Lasix) 20 mg PO DAILY [facility] Glucagon () 1 mg IM .X1 PRN PRN Reason: Hypoglycemia Fentanyl () 100 mls @ 2.5 mls/hr IV .Q40H [facility] Last Admin: 07/27/18 04:26 Dose: 2.5 mls/hr Propofol (Diprivan) 1,000 mg in 100 mls @ 4.122 mls/hr CONT INF .Q12H [facility] Last Admin: 07/27/18 05:52 Dose: 4.122 mls/hr Sodium Chloride () 250 mls @ 15 mls/hr IV .[id number] PRN PRN Reason: SALINE FLUSH Sodium Chloride () 250 mls @ 15 mls/hr IV .[id number] PRN PRN Reason: SALINE FLUSH Enteral Nutritional Formula (Vital Af 1.2 Damien Liquid) 1,000 mls @ 60 mls/hr GT .[id number] [facility] Last Admin: 07/27/18 06:01 Dose: Not Given Dexmedetomidine HCl 400 mcg/ (Sodium Chloride) 100 mls @ 9.13 mls/hr CONT INF .[id number] [facility] Last Admin: 07/27/18 05:52 Dose: 9.13 mls/hr Lisinopril (Zestril) 10 mg PO DAILY [facility] Non-Formulary Medication (Acyclovir [Zovirax]) 400 mg PO BID [facility] Non-Formulary Medication (Dexamethasone [Dexamethasone]) 12 mg PO QWEEK [facility] Ondansetron HCl (Zofran) 4 mg IV Q6H PRN PRN PRN Reason: Nausea Polyethylene Glycol (Miralax) 17 gm GT BID [facility] Last Admin: 07/27/18 08:16 Dose: 17 gm Quetiapine Fumarate (Seroquel) 50 mg GT BID [facility] Last Admin: 07/27/18 08:16 Dose: 50 mg Senna/Docusate Sodium (Senokot-S, Blanca-Colace) 2 tablet GT BID [facility] Last Admin: 07/27/18 08:16 Dose: 2 tablet Sodium Chloride () 5 - 15 ml IV UD PRN PRN Reason: SALINE FLUSH Last Admin: 07/26/18 06:59 Dose: 10 ml Medical Necessity - Tobacco Use Smoking Status: Never smoker Assessment/Plan All Active Problems (Last Updated 12/21/17 @ 08:49 by Diane Hopkins) Opioid withdrawal (Acute) Altered mental status (Acute) Acute metabolic encephalopathy (Acute) NSTEMI (non-ST elevated myocardial infarction) (Acute) 1. Altered mental status secondary to toxic encephalopathy/iatrogenic respiratory failure was present on admission -As described in the HPI, she has been on chronic narcotics for very long time and apparently ran out of her fentanyl patch and OxyContin 2 or 3 days prior, however now per report from the daughter she went home and counted the pills and it looks like she took more than her allotted dosing would allow. -She was given a dose of Narcan in the ER to no avail and she is currently intubated and sedated -She had a CT scan at the outside facility of her head which showed potentially new lytic lesions in her skull -Consult to the marble polisher for vent management -Baker is in place -Pepcid IV twice daily GI prophylaxis -Will stop fentanyl, and propofol and attempt to extubate on Precedex today 2. Multiple myeloma/chronic anemia/hypocalcemia -Per the daughter, she completed chemotherapy and was skin to follow-up with [facility] with these new lytic lesions in her skull for a new chemo and possible radiation. -We will currently continue with fentanyl drip while intubated to help control pain -Hemoglobin is stable at 8.5 3. Nonobstructive coronary artery disease/history of left heart cath/left bundle branch block/HTN -Left bundle branch block does not appear to be new, therefore will not consult cardiology -She had a cardiac cath in 2018 with an EF of 45% and moderate left ventricular systolic dysfunction -No history of heart failure, she may be on Lasix 20 mg daily, currently we will continue with IV fluids since she is not eating or drinking -Continue her home medications once verified 4. Depression/anxiety/dementia -Unsure as to how extensive her dementia is and whether or not it is progressive -We will continue her Celexa DVT: Lovenox and SCDs Code Visit Inpatient E&M: 34483 Subs Hosp L2
--- NOTE | 2018-07-27 09:36 | PN_ITS ---
Patient Problems: Active and Suspected Problems (Last Updated 12/21/17 @ 08:49 by Diane Hopkins) Opioid withdrawal (Acute) Altered mental status (Acute) Subjective: Intubated and sedated. Opening her eyes a little bit this morning Vitals/I&O's: Vital Signs Temp Pulse Resp BP Pulse Ox 97.9 F 89 14 170/59 H 96 07/27/18 04:00 07/27/18 08:00 07/27/18 07:00 07/27/18 07:00 07/27/18 06:58 Oxygen Delivery Method Room Air Weight: 164 lb 7.437 oz Body Mass Index (BMI) 25.2 Intake and Output for Last 24 Hours 07/25/18 07/26/18 07/27/18 23:59 23:59 23:59 Intake Total 4749.2 / 4749.2 5164.9 / 5164.9 1029 / 1029 Output Total 1245 / 1245 1950 / 1950 450 / 450 Balance 3504.2 / 3504.2 3214.9 / 3214.9 579 / 579 General: - - Sedated and intubated HEENT: Atraumatic, PERRLA, Normocephalic Oral: Dry Mucosa Neck: Supple, No JVD Lungs: Normal air movement, No wheeze, No rales, coarse breath sounds bilaterally Cardiovascular: Regular Rhythm, Normal S1, Normal S2, No murmurs, Tachycardic Abdomen: Soft, Non-Distended, No Hepato-splenomegaly Extremities: No edema, Capillary Refill Less than 3 Seconds Skin: No rashes, No breakdown Neurological: - - Unable to obtain Psych/Mental Status: - - Unable to obtain Microbiology Past 72 Hours 07/24/18 20:00 Sputum, Induced/Lukens Gram Stain - Final 07/24/18 20:00 Sputum, Induced/Lukens Respiratory Culture - Final Laboratory Results 07/27/18 04:10: WBC 5.7, RBC 3.27 L, Hgb 8.5 L, Hct 27.9 L, MCV 85.3, MCH 26.0 L , MCHC 30.5 L, RDW 16.3 H, RDW Differential 49.0 H, Plt Count 196, MPV 9.9, Immature Gran % (Auto) 0.200, Neut % (Auto) 79.8 H, Lymph % (Auto) 6.0 L, [place] % (Auto) 7.6, Eos % (Auto) 6.0 H, Baso % (Auto) 0.4, Absolute Neuts (auto) 4.5, Absolute Lymphs (auto) 0.34 L, Total Counted Not Reportable, Differential Comment SCANNED 07/27/18 04:10: Sodium 146 H, Potassium 3.8, Chloride 113 H, Carbon Dioxide 23.0, Anion Gap 10, BUN 8, Creatinine 0.49 L, Estim Creat Clear Calc 44.41, Est GFR (MDRD) Af Amer 159, Est GFR (MDRD) Non-Af 131, BUN/Creatinine Ratio 16.4, Glucose 115 H, Calcium 7.4 L 07/27/18 04:10: Phosphorus 2.8, Magnesium 1.9 Current Medications Albuterol Sulfate (Ventolin Aerosols) 2.5 mg INHALATION Q2H PRN PRN PRN Reason: SOB/WHEEZING Amlodipine Besylate (Norvasc) 5 mg PO DAILY [facility] Aspirin (Ecotrin) 81 mg PO DAILY@0800 [facility] Chlorhexidine Gluconate () 15 ml PO BID [facility] Last Admin: 07/27/18 08:14 Dose: 15 ml Chlorhexidine Gluconate () 1 each TOPICAL DAILY [facility] Last Admin: 07/27/18 08:14 Dose: 1 each Citalopram Hydrobromide (Celexa) 10 mg PO DAILY [facility] Dextrose (D50w Syringe) 0 gm IV X1 PRN; Protocol PRN Reason: Hypoglycemia Enoxaparin Sodium (Lovenox) 40 mg SC DAILY@1000 [facility] Last Admin: 07/27/18 08:15 Dose: 40 mg Famotidine (Pepcid) 20 mg GT BID [facility] Last Admin: 07/27/18 08:16 Dose: 20 mg Furosemide (Lasix) 20 mg PO DAILY [facility] Glucagon () 1 mg IM .X1 PRN PRN Reason: Hypoglycemia Fentanyl () 100 mls @ 2.5 mls/hr IV .Q40H [facility] Last Admin: 07/27/18 04:26 Dose: 2.5 mls/hr Propofol (Diprivan) 1,000 mg in 100 mls @ 4.122 mls/hr CONT INF .Q12H [facility] Last Admin: 07/27/18 05:52 Dose: 4.122 mls/hr Sodium Chloride () 250 mls @ 15 mls/hr IV .[id number] PRN PRN Reason: SALINE FLUSH Sodium Chloride () 250 mls @ 15 mls/hr IV .[id number] PRN PRN Reason: SALINE FLUSH Enteral Nutritional Formula (Vital Af 1.2 Damien Liquid) 1,000 mls @ 60 mls/hr GT .[id number] [facility] Last Admin: 07/27/18 06:01 Dose: Not Given Dexmedetomidine HCl 400 mcg/ (Sodium Chloride) 100 mls @ 9.13 mls/hr CONT INF .[id number] [facility] Last Admin: 07/27/18 05:52 Dose: 9.13 mls/hr Lisinopril (Zestril) 10 mg PO DAILY [facility] Non-Formulary Medication (Acyclovir [Zovirax]) 400 mg PO BID [facility] Non-Formulary Medication (Dexamethasone [Dexamethasone]) 12 mg PO QWEEK [facility] Ondansetron HCl (Zofran) 4 mg IV Q6H PRN PRN PRN Reason: Nausea Polyethylene Glycol (Miralax) 17 gm GT BID [facility] Last Admin: 07/27/18 08:16 Dose: 17 gm Quetiapine Fumarate (Seroquel) 50 mg GT BID [facility] Last Admin: 07/27/18 08:16 Dose: 50 mg Senna/Docusate Sodium (Senokot-S, Blanca-Colace) 2 tablet GT BID [facility] Last Admin: 07/27/18 08:16 Dose: 2 tablet Sodium Chloride () 5 - 15 ml IV UD PRN PRN Reason: SALINE FLUSH Last Admin: 07/26/18 06:59 Dose: 10 ml Medical Necessity - Tobacco Use Smoking Status: Never smoker Assessment/Plan All Active Problems (Last Updated 12/21/17 @ 08:49 by Diane Hopkins) Opioid withdrawal (Acute) Altered mental status (Acute) Acute metabolic encephalopathy (Acute) NSTEMI (non-ST elevated myocardial infarction) (Acute) 1. Altered mental status secondary to toxic encephalopathy/iatrogenic respiratory failure was present on admission -As described in the HPI, she has been on chronic narcotics for very long time and apparently ran out of her fentanyl patch and OxyContin 2 or 3 days prior, however now per report from the daughter she went home and counted the pills and it looks like she took more than her allotted dosing would allow. -She was given a dose of Narcan in the ER to no avail and she is currently intubated and sedated -She had a CT scan at the outside facility of her head which showed potentially new lytic lesions in her skull -Consult to the health and physical education teacher for vent management -Baker is in place -Pepcid IV twice daily GI prophylaxis -Will stop fentanyl, and propofol and attempt to extubate on Precedex today 2. Multiple myeloma/chronic anemia/hypocalcemia -Per the daughter, she completed chemotherapy and was skin to follow-up with [facility] with these new lytic lesions in her skull for a new chemo and possible radiation. -We will currently continue with fentanyl drip while intubated to help control pain -Hemoglobin is stable at 8.5 3. Nonobstructive coronary artery disease/history of left heart cath/left bundle branch block/HTN -Left bundle branch block does not appear to be new, therefore will not consult cardiology -She had a cardiac cath in 2018 with an EF of 45% and moderate left ventricular systolic dysfunction -No history of heart failure, she may be on Lasix 20 mg daily, currently we will continue with IV fluids since she is not eating or drinking -Continue her home medications once verified 4. Depression/anxiety/dementia -Unsure as to how extensive her dementia is and whether or not it is progressive -We will continue her Celexa DVT: Lovenox and SCDs Code Visit Inpatient E&M: 62479 Subs Hosp L2
--- NOTE | 2018-07-27 10:07 | PN_ITS ---
Subjective: Patient did okay overnight. Patient continues to have significant agitation and was unable to be taken off of propofol. Patient is currently on propofol, Precedex and fentanyl therapy. Patient failed her spontaneous awakening trial this morning. Did have a discussion with the daughter at the bedside during rounds. She did report that some narcotics were unaccounted for and may have been taken an attempt to do with her pain. No suicide note was noted. Nursing and respiratory continue to report minimal secretions. Discussed with patient's daughter after rounds. Unclear if patient is going to be able to tolerate spontaneous breathing trial. Patient does have potential narcotic abuse at baseline. It is unclear if patient will be able to tolerate spontaneous breathing trial without increase in Seroquel dosing. General: - - Intubated, sedated, RASS +2. Appears older than stated age. HEENT: Atraumatic, PERRLA, EOMI, Normocephalic, - - NG in place. Oral: Moist Mucosa, No Gingival or Mucosal Lesions/ Ulcerations Neck: Supple, No JVD, No Nodes, Trachea Midline Lungs: No rhonchi, No wheeze, No rales, Diminished, - - Symmetric expansion. No dullness to percussion. Cardiovascular: Normal S1, Normal S2, No murmurs, No rub noted, No Gallop, Tachycardic Abdomen: Bowel Sounds Present, Soft, Non Tender, Non-Distended Extremities: No clubbing, No cyanosis, Edema Skin: No rashes, No breakdown Musculoskeletal: No Tenderness to Palpation of Joints or Extremities Lymphatic: No Cervical, Supraclavicular, or Inguinal Adenopathy Neurological: Cranial nerves II-XII grossly intact, Neuro grossly intact Psych/Mental Status: Agitated, Anxious, Restless Vital Signs Temp Pulse Resp BP Pulse Ox 36.6 C 102 H 20 H 181/90 H 94 07/27/18 04:00 07/27/18 09:15 07/27/18 09:15 07/27/18 09:00 07/27/18 09:15 Oxygen Delivery Method Mechanical Ventilator Weight: 74.6 kg Body Mass Index (BMI) 25.2 Intake and Output for Last 24 Hours 07/25/18 07/26/18 07/27/18 23:59 23:59 23:59 Intake Total 4749.2 / 4749.2 5164.9 / 5164.9 1229 / 1229 Output Total 1245 / 1245 1950 / 1950 450 / 450 Balance 3504.2 / 3504.2 3214.9 / 3214.9 779 / 779 Labs (Last 48 Hours) 07/25/18 07/26/18 07/26/18 20:00 04:55 04:55 WBC 4.3 L RBC 3.24 L Hgb 8.2 L Hct 27.9 L MCV 86.1 MCH 25.3 L MCHC 29.4 L RDW 16.3 H RDW Differential 49.3 H Plt Count 194 MPV 9.5 Immature Gran % (Auto) 0.200 Neut % (Auto) 79.8 H Lymph % (Auto) 7.6 L [place] % (Auto) 7.4 Eos % (Auto) 4.8 Baso % (Auto) 0.2 Absolute Neuts (auto) 3.5 Absolute Lymphs (auto) 0.33 L Total Counted Not Reportable Differential Comment SCANNED Sodium 145 148 H Potassium 3.5 3.7 Chloride 116 H 115 H Carbon Dioxide 23.0 23.0 Anion Gap 6 10 BUN 9 9 Creatinine 0.63 0.56 Estim Creat Clear Calc 44.41 44.41 Est GFR (MDRD) Af Amer 119 135 Est GFR (MDRD) Non-Af 98 111 BUN/Creatinine Ratio 14.3 15.9 Glucose 93 106 Calcium 6.7 L 6.9 L Phosphorus 1.7 L Magnesium 1.8 07/27/18 07/27/18 07/27/18 04:10 04:10 04:10 WBC 5.7 RBC 3.27 L Hgb 8.5 L Hct 27.9 L MCV 85.3 MCH 26.0 L MCHC 30.5 L RDW 16.3 H RDW Differential 49.0 H Plt Count 196 MPV 9.9 Immature Gran % (Auto) 0.200 Neut % (Auto) 79.8 H Lymph % (Auto) 6.0 L [place] % (Auto) 7.6 Eos % (Auto) 6.0 H Baso % (Auto) 0.4 Absolute Neuts (auto) 4.5 Absolute Lymphs (auto) 0.34 L Total Counted Not Reportable Differential Comment SCANNED Sodium 146 H Potassium 3.8 Chloride 113 H Carbon Dioxide 23.0 Anion Gap 10 BUN 8 Creatinine 0.49 L Estim Creat Clear Calc 44.41 Est GFR (MDRD) Af Amer 159 Est GFR (MDRD) Non-Af 131 BUN/Creatinine Ratio 16.4 Glucose 115 H Calcium 7.4 L Phosphorus 2.8 Magnesium 1.9 Microbiology 07/24/18 20:00 Sputum, Induced/Lukens Gram Stain - Final 07/24/18 20:00 Sputum, Induced/Lukens Respiratory Culture - Final Medical Necessity - Tobacco Use Smoking Status: Never smoker Assessment/Plan All Active Problems (Last Updated 12/21/17 @ 08:49 by Diane Hopkins) Opioid withdrawal (Acute) Altered mental status (Acute) Acute metabolic encephalopathy (Acute) NSTEMI (non-ST elevated myocardial infarction) (Acute) RECOMMENDATIONS: 1. Continue Precedex therapy 2. Wean FiO2 to maintain oxygen saturations at or above 90%. 3. Continue Seroquel dosing 4. Extubation later today 5. Reinitiate home blood pressure medications IMPRESSIONS: 1. Acute respiratory failure Unclear etiology at this time. Clinical suspicion for iatrogenic respiratory depression secondary to home narcotics and medications received in the emergency room. Patient continues to have difficulty with achieving appropriate sedation for spontaneous awakening and breathing trial. Discussed with the daughter at length about the options moving forward. Patient does not have significant secretions, infiltrate or fever to suggest an infectious process. After review of the risks, benefits and alternatives, patient's daughter has agreed to administer blood pressure medications, discontinue fentanyl and propofol and extubate. Precedex will be continued. Patient is to be reintubated if develops respiratory distress. 2. Encephalopathy Patient continues to be significantly confused and agitated. Patient did have new lytic lesions reported on outside CAT scan and does have a history of multiple myeloma. This is followed by the [facility]. Will attempt to normalize electrolytes. Continue with delirium protocol. 3. Personal history of multiple myeloma The patient is currently followed by Dr. Ybarra at [facility]. Consultation may need to be placed to them once patient more stable in light of the lytic lesions noted on CT head. Per patient's daughter, aggressive therapy will be requested. 4. Depression/anxiety/dementia/hypertension Complicates care, management, recovery and prognosis. Recommend physical therapy evaluation once medically stabilized. Will need a bedside swallow evaluation following extubation TIME: 65 minutes of critical care time, independent of procedures, was spent addressing the patient's acute respiratory failure, encephalopathy, history of multiple myeloma, review of all data and collaboration with the care team. (6 AM to 10 AM) Code Visit 9xxxx: [id number] Critical care first hour
[2018-07-27] MEDS: Lisinopril 10 MG Tablet GT (10:10)
[2018-07-27] MEDS: Aspirin E.C. 81 MG Tablet PO (10:10)
[2018-07-27] MEDS: Furosemide 20 MG Tablet GT (10:10)
[2018-07-27] MEDS: Citalopram 10 MG Tablet GT (10:12)
[2018-07-27] MEDS: amLODIPine 5 MG Tablet GT (10:12)
[2018-07-27] MEDS: Metoprolol Tartrate 5 MG/5 ML Vial IV ×2 (11:49→19:11)
[2018-07-27] MEDS: 0.9% NaCl Peripheral Flush Adult/Peds IV ×4 (11:54→21:36)
--- NOTE | 2018-07-27 15:17 | CASEMGMT ---
DESTINEY spoke with patient's daughter. DESTINEY told her Marco A Aragon will be able to take her when she is ready. DESTINEY asked her about a chemo drug patient was on when she went to [facility] last time. She said that she will be on that chemo drug and she will have to go to the office for more chemo. She also said they met with Dr Wilson for radiation treatment. DESTINEY told her SW can call Dr Ybarra's office to confirm plans so SW can relay this to [facility]. She said they are meeting with Palliative Care/Hospice on Thursday for both patient and her . Both have Cancer. DESTINEY asked patient's daughter how she was doing as she has a lot going on with her parents and her . She said she is managing well. She said they are on the upswing with her . SW provided emotional support. She thanked DESTINEY for stopping by to talk with her. DESTINEY called Dr Ybarra's office and spoke with a nurse. DESTINEY let her know patient will likely be going to [facility] at discharge. She looked patient up and patient will have radiation first and then start a new chemo in addition to her current chemo pill after the radiation is complete. She said nothing is scheduled right now and this will likely depend upon the senior living. She said when she gets to the senior living they can talk with Marco A and figure out costs etc and it may have to wait. DESTINEY thanked her for her assistance. DESTINEY called Yudelka at [facility] and updated her letting her know about chemo/radiation as well as meeting with Palliative/Hospice on Thursday. Saray RUIZ MSW
--- NOTE | 2018-07-27 15:41 | CHAPLAIN ---
Type of Pastoral Visit _x__ Initial Visit ___ Follow-up Visit ___ On-call Visit ___ General Patient Visit ___ Spiritual Assessment ___ Family Conference ___ Bereavement ___ Rapid Response ___ Code Blue ___ Other (describe below) Pastoral Care Referral From ___ Patient ___ Family _x__ Nurse ___ Physician ___ Automatic Pad Making Machine Operator ___ Greenhouse Laborer ___ Other (describe below) Sacrament/Intervention _x__ Active listening ___ Anointing ___ Bahai ___ Bereavement ___ Communion ___ Nya exploration ___ ___ Life review ___ Prayer ___ Reconciliation ___ Sacrament of Sick x__ Supportive presence ___ Wedding ___ Other (describe below) Pastoral Comments RN x2 recommended supportive visit with daughter of patient; daughter is taking on much responsibility and may benefit from extra care; pt is moving about in bed continuously while the conversation continues with the daughter;
[2018-07-27] MEDS: Haloperidol Lactate 5 MG/ML Vial IV (20:17)
[2018-07-27 21:55] LABS: Allen Test POS; Base Excess -4 mmol/L (-2 to +2); Blood Gas Specimen Type ART; O2 Delivery Device Room Air; PO2 70 mmHG (75-100); SITE R Radial; SO2 96 % (95-99); Time Given 2150; Total Carbon Dioxide 20 mmol/L; pCO2 24.7 mmHg (35-45); pH 7.49 (7.35-7.45)
--- NOTE | 2018-07-27 21:55 | CPS ---
ABG RESULTS CALLED TO DR. BERMAN.
[2018-07-28] VITALS (29 sets, daily range): BP systolic 148–210; BP diastolic 36–127; PULSE 93–133; RESP 17–42; TEMP 35.7–36.9; O2SAT 93–99
[2018-07-28] MEDS: 0.9% NaCl Peripheral Flush Adult/Peds IV ×5 (01:50→20:17)
[2018-07-28] MEDS: Haloperidol Lactate 5 MG/ML Vial IV ×3 (02:12→13:19)
[2018-07-28 04:39] LABS: Absolute Lymphocyte Count 0.34 X10^3/ul (0.83-4.51); Absolute Neutrophil Count 11.6 X10^3/uL (2.0-7.7); Basophil# 0.04 X10^3/uL; Basophil% 0.3 % (0-1); Hematocrit 35.9 % (37-47); Hemoglobin 11.1 g/dl (12.0-15.0); Lymphocyte # 0.34 X10^3/ul (4.0); Lymphocyte % 2.7 % (19-41); Mean Corp Hgb Conc 30.9 g/gl (32-36); Mean Corpuscular Hgb 25.3 pg (27.0-32.0); Mean Corpuscular Volume 81.8 fL (81-99); Mean Platelet Vol. 10.2 fl (6.2-12.0); Monocyte# 0.36 X10^3/uL; Monocyte% 2.9 % (0-10); Neutrophil # 11.64 X10^3/uL (2.7-7.7); Neutrophil % 93.9 % (47-70); Platelet Count 420 K/mm3 (150-450); RBC Distribution Width CV 16.4 % (11.6-14.6); RBC Distribution Width SD 47.8 fl (35.1-43.9); Red Blood Count 4.39 M/mm3 (4.2-5.4); White Blood Count 12.4 K/mm3 (4.4-11.0)
[2018-07-28 04:40] LABS: Differential Indicated SCAN CRITERIA MET; POSITIVE COUNT NO; POSITIVE DIFFERENTIAL YES; POSITIVE MORPHOLOGY NO
[2018-07-28 05:05] LABS: Anion Gap 14 (5-15); BUN 14 mg/dL (7-18); BUN/Creat Ratio 17.1 RATIO (10-20); Chloride 107 mmol/L (98-107); Creatinine, Serum 0.82 mg/dL (0.55-1.02); EST Glomerular Filtration Rate 73 mL/min (>60); Est Glom Filt Rate - Afr Amer 88 mL/min (>60); Estimated Creatinine Clearance 54.16 ml/min; Glucose 162 mg/dL (74-106); Magnesium 1.8 mg/dL (1.6-2.6); Phosphorus 2.4 mg/dL (2.5-4.9); Potassium 3.6 mmol/L (3.5-5.1); Sodium Level 145 mmol/L (136-145)
[2018-07-28 05:07] LABS: Differential Comment SCANNED
[2018-07-28] MEDS: HYDROmorphone 1 MG/ML Syringe IV ×5 (08:44→20:13)
[2018-07-28] MEDS: Metoprolol Tartrate 5 MG/5 ML Vial IV ×2 (08:50→17:27)
[2018-07-28] MEDS: Ondansetron 4 MG/2 ML Vial IV (08:50)
--- NOTE | 2018-07-28 10:24 | PCM.PN.HOSP ---
Patient Problems: Active and Suspected Problems (Last Updated 12/21/17 @ 08:49 by Diane Hopkins) Opioid withdrawal (Acute) Altered mental status (Acute) Subjective: Confused and disoriented and currently nonverbal Vitals/I&O's: Vital Signs Temp Pulse Resp BP Pulse Ox 96.3 F L 133 H 30 H 205/97 H 99 07/28/18 08:00 07/28/18 08:50 07/28/18 08:00 07/28/18 08:00 07/28/18 08:00 Oxygen Flow Rate (L/min) 2 Oxygen Delivery Method Room Air Weight: 149 lb 7.574 oz Body Mass Index (BMI) 25.2 Intake and Output for Last 24 Hours 07/26/18 07/27/18 07/28/18 23:59 23:59 23:59 Intake Total 5164.9 / 5164.9 1654 / 1654 42.2 / 42.2 Output Total 1950 / 1950 3350 / 3350 1500 / 1500 Balance 3214.9 / 3214.9 -1696 / -1696 -1457.8 / -1457.8 General: Extubated, confused and disoriented and does not follow commands HEENT: Atraumatic, PERRLA, Normocephalic Oral: Dry Mucosa Neck: Supple, No JVD Lungs: Normal air movement, No wheeze, No rales, coarse breath sounds bilaterally Cardiovascular: Regular Rhythm, Normal S1, Normal S2, No murmurs, Tachycardic Abdomen: Soft, Non-Distended, No Hepato-splenomegaly Extremities: No edema, Capillary Refill Less than 3 Seconds Skin: No rashes, No breakdown Neurological: She is moving all extremities freely Psych/Mental Status: - - Unable to obtain Microbiology Past 72 Hours 07/28/18 05:50 Stool C. difficile DNA Amplification - Final 07/24/18 20:00 Sputum, Induced/Lukens Gram Stain - Final 07/24/18 20:00 Sputum, Induced/Lukens Respiratory Culture - Final Laboratory Results 07/27/18 21:49: Specimen Type ART, Sample Site R Radial, pH 7.49 H, Bicarbonate Actual 19.0 L, POC Total CO2 20, Base Excess -4 L, O2 Saturation 96, ABG pCO2 24.7 L, ABG pO2 70 L, Jonny Test POS, O2 Delivery Device Room Air, Blood Gas Notified Whom MAGDA TESFAYE, Blood Gas Notified Time 21507/28/18 04:25: WBC 12.4 H, RBC 4.39, Hgb 11.1 L, Hct 35.9 L, MCV 81.8, MCH 25.3 L, MCHC 30.9 L, RDW 16.4 H, RDW Differential 47.8 H, Plt Count 420, MPV 10.2, Immature Gran % (Auto) 0.200, Neut % (Auto) 93.9 H, Lymph % (Auto) 2.7 L, [place] % (Auto) 2.9, Eos % (Auto) 0.0, Baso % (Auto) 0.3, Absolute Neuts (auto) 11.6 H, Absolute Lymphs (auto) 0.34 L, Total Counted Not Reportable, Differential Comment SCANNED 07/28/18 04:25: Sodium 145, Potassium 3.6, Chloride 107, Carbon Dioxide 24.0, Anion Gap 14, BUN 14, Creatinine 0.82, Estim Creat Clear Calc 54.16, Est GFR (MDRD) Af Amer 88, Est GFR (MDRD) Non-Af 73, BUN/Creatinine Ratio 17.1, Glucose 162 H, Calcium 9.0, Phosphorus 2.4 L, Magnesium 1.8 Current Medications Acyclovir (Zovirax) 400 mg PO BID [facility] Last Admin: 07/28/18 10:18 Dose: Not Given Albuterol Sulfate (Ventolin Aerosols) 2.5 mg INHALATION Q2H PRN PRN PRN Reason: SOB/WHEEZING Amlodipine Besylate (Norvasc) 5 mg PO DAILY [facility] Last Admin: 07/28/18 10:17 Dose: Not Given Aspirin (Ecotrin) 81 mg PO DAILY@0800 [facility] Last Admin: 07/28/18 10:14 Dose: Not Given Chlorhexidine Gluconate () 1 each TOPICAL DAILY [facility] Last Admin: 07/27/18 08:14 Dose: 1 each Citalopram Hydrobromide (Celexa) 10 mg PO DAILY [facility] Last Admin: 07/28/18 10:17 Dose: Not Given Dextrose (D50w Syringe) 0 gm IV X1 PRN; Protocol PRN Reason: Hypoglycemia Enoxaparin Sodium (Lovenox) 40 mg SC DAILY@1000 [facility] Last Admin: 07/27/18 08:15 Dose: 40 mg Famotidine (Pepcid) 20 mg PO BID [facility] Last Admin: 07/28/18 10:18 Dose: Not Given Furosemide (Lasix) 20 mg PO DAILY [facility] Last Admin: 07/28/18 10:17 Dose: Not Given Glucagon () 1 mg IM .X1 PRN PRN Reason: Hypoglycemia Haloperidol Lactate (Haldol) 5 mg IV Q4H PRN PRN PRN Reason: AGITATION Last Admin: 07/28/18 08:50 Dose: 5 mg Hydromorphone HCl (Dilaudid Inj) 1 mg IV Q3H PRN PRN PRN Reason: SEVERE PAIN (6-11/25) Sodium Chloride () 250 mls @ 15 mls/hr IV .[id number] PRN PRN Reason: SALINE FLUSH Sodium Chloride () 250 mls @ 15 mls/hr IV .[id number] PRN PRN Reason: SALINE FLUSH Labetalol HCl (Trandate) 20 mg IV Q4H PRN PRN PRN Reason: Sbp Greater Than 150 Last Admin: 07/28/18 01:54 Dose: 20 mg Lisinopril (Zestril) 10 mg PO DAILY [facility] Last Admin: 07/28/18 10:18 Dose: Not Given Metoprolol Tartrate (Lopressor (Beta Maddy)) 5 mg IV Q6H PRN PRN PRN Reason: hr above 120 Last Admin: 07/28/18 08:50 Dose: 5 mg Ondansetron HCl (Zofran) 4 mg IV Q6H PRN PRN PRN Reason: Nausea Last Admin: 07/28/18 08:50 Dose: 4 mg Quetiapine Fumarate (Seroquel) 50 mg PO BID [facility] Last Admin: 07/28/18 10:18 Dose: Not Given Sodium Chloride () 5 - 15 ml IV UD PRN PRN Reason: SALINE FLUSH Last Admin: 07/28/18 01:50 Dose: 10 ml Medical Necessity - Tobacco Use Smoking Status: Never smoker Assessment/Plan All Active Problems (Last Updated 12/21/17 @ 08:49 by Diane Hopkins) Opioid withdrawal (Acute) Altered mental status (Acute) Acute metabolic encephalopathy (Acute) NSTEMI (non-ST elevated myocardial infarction) (Acute) 1. AMS secondary to toxic encephalopathy/iatrogenic respiratory failure was present on admission -As described in the HPI, she has been on chronic narcotics for very long time and apparently ran out of her fentanyl patch and OxyContin 2 or 3 days prior, however now per report from the daughter she went home and counted the pills and it looks like she took more than her allotted dosing would allow. -She was given a dose of Narcan in the ER to no avail and she is currently intubated and sedated -She had a CT scan at the outside facility of her head which showed potentially new lytic lesions in her skull -She has been extubated though she is nonverbal now and difficult to reorient and does not follow commands -Baker is in place -Pepcid IV twice daily -Her blood pressure was significantly elevated today and this is likely secondary to agitation from pain, will start with IV Dilaudid 1 mg every 3 hours as needed 2. Multiple myeloma/chronic anemia/hypocalcemia -Per the daughter, she completed chemotherapy and was skin to follow-up with [facility] with these new lytic lesions in her skull for a new chemo and possible radiation. -Hemoglobin is stable at 8.5 -She has to take her father to see Dr. Ybarra today, and she wants to discuss her mother's care. She is considering hospice however this is a very stressful time for her because her brother is on vacation and her father is on hospice, and her own is on dialysis. 3. Nonobstructive coronary artery disease/history of left heart cath/left bundle branch block/HTN -Left bundle branch block does not appear to be new, therefore will not consult cardiology -She had a cardiac cath in 2018 with an EF of 45% and moderate left ventricular systolic dysfunction -No history of heart failure, she may be on Lasix 20 mg daily, currently we will continue with IV fluids since she is not eating or drinking -Continue her home medications once verified 4. Depression/anxiety/dementia -Unsure as to how extensive her dementia is and whether or not it is progressive -We will continue her Celexa DVT: Lovenox and SCDs [place] care planning: Spent 20 minutes discussing hospice care and she states that she has already considered it and was supposed to be called on Thursday to further discuss for her mother. Code Visit Inpatient E&M: 50335 Subs Hosp L2 Procedures: 64323 Advncd Care Plan 30 Min
--- NOTE | 2018-07-28 10:29 | PN_ITS ---
Patient Problems: Active and Suspected Problems (Last Updated 12/21/17 @ 08:49 by Diane Hopkins) Opioid withdrawal (Acute) Altered mental status (Acute) Subjective: Confused and disoriented and currently nonverbal Vitals/I&O's: Vital Signs Temp Pulse Resp BP Pulse Ox 96.3 F L 133 H 30 H 205/97 H 99 07/28/18 08:00 07/28/18 08:50 07/28/18 08:00 07/28/18 08:00 07/28/18 08:00 Oxygen Flow Rate (L/min) 2 Oxygen Delivery Method Room Air Weight: 149 lb 7.574 oz Body Mass Index (BMI) 25.2 Intake and Output for Last 24 Hours 07/26/18 07/27/18 07/28/18 23:59 23:59 23:59 Intake Total 5164.9 / 5164.9 1654 / 1654 42.2 / 42.2 Output Total 1950 / 1950 3350 / 3350 1500 / 1500 Balance 3214.9 / 3214.9 -1696 / -1696 -1457.8 / -1457.8 General: Extubated, confused and disoriented and does not follow commands HEENT: Atraumatic, PERRLA, Normocephalic Oral: Dry Mucosa Neck: Supple, No JVD Lungs: Normal air movement, No wheeze, No rales, coarse breath sounds bilaterally Cardiovascular: Regular Rhythm, Normal S1, Normal S2, No murmurs, Tachycardic Abdomen: Soft, Non-Distended, No Hepato-splenomegaly Extremities: No edema, Capillary Refill Less than 3 Seconds Skin: No rashes, No breakdown Neurological: She is moving all extremities freely Psych/Mental Status: - - Unable to obtain Microbiology Past 72 Hours 07/28/18 05:50 Stool C. difficile DNA Amplification - Final 07/24/18 20:00 Sputum, Induced/Lukens Gram Stain - Final 07/24/18 20:00 Sputum, Induced/Lukens Respiratory Culture - Final Laboratory Results 07/27/18 21:49: Specimen Type ART, Sample Site R Radial, pH 7.49 H, Bicarbonate Actual 19.0 L, POC Total CO2 20, Base Excess -4 L, O2 Saturation 96, ABG pCO2 24.7 L, ABG pO2 70 L, Jonny Test POS, O2 Delivery Device Room Air, Blood Gas Notified Whom MAGDA TESFAYE, Blood Gas Notified Time 21507/28/18 04:25: WBC 12.4 H, RBC 4.39, Hgb 11.1 L, Hct 35.9 L, MCV 81.8, MCH 25.3 L, MCHC 30.9 L, RDW 16.4 H, RDW Differential 47.8 H, Plt Count 420, MPV 10.2, Immature Gran % (Auto) 0.200, Neut % (Auto) 93.9 H, Lymph % (Auto) 2.7 L, [place] % (Auto) 2.9, Eos % (Auto) 0.0, Baso % (Auto) 0.3, Absolute Neuts (auto) 11.6 H, Absolute Lymphs (auto) 0.34 L, Total Counted Not Reportable, Differential Comment SCANNED 07/28/18 04:25: Sodium 145, Potassium 3.6, Chloride 107, Carbon Dioxide 24.0, Anion Gap 14, BUN 14, Creatinine 0.82, Estim Creat Clear Calc 54.16, Est GFR (MDRD) Af Amer 88, Est GFR (MDRD) Non-Af 73, BUN/Creatinine Ratio 17.1, Glucose 162 H, Calcium 9.0, Phosphorus 2.4 L, Magnesium 1.8 Current Medications Acyclovir (Zovirax) 400 mg PO BID [facility] Last Admin: 07/28/18 10:18 Dose: Not Given Albuterol Sulfate (Ventolin Aerosols) 2.5 mg INHALATION Q2H PRN PRN PRN Reason: SOB/WHEEZING Amlodipine Besylate (Norvasc) 5 mg PO DAILY [facility] Last Admin: 07/28/18 10:17 Dose: Not Given Aspirin (Ecotrin) 81 mg PO DAILY@0800 [facility] Last Admin: 07/28/18 10:14 Dose: Not Given Chlorhexidine Gluconate () 1 each TOPICAL DAILY [facility] Last Admin: 07/27/18 08:14 Dose: 1 each Citalopram Hydrobromide (Celexa) 10 mg PO DAILY [facility] Last Admin: 07/28/18 10:17 Dose: Not Given Dextrose (D50w Syringe) 0 gm IV X1 PRN; Protocol PRN Reason: Hypoglycemia Enoxaparin Sodium (Lovenox) 40 mg SC DAILY@1000 [facility] Last Admin: 07/27/18 08:15 Dose: 40 mg Famotidine (Pepcid) 20 mg PO BID [facility] Last Admin: 07/28/18 10:18 Dose: Not Given Furosemide (Lasix) 20 mg PO DAILY [facility] Last Admin: 07/28/18 10:17 Dose: Not Given Glucagon () 1 mg IM .X1 PRN PRN Reason: Hypoglycemia Haloperidol Lactate (Haldol) 5 mg IV Q4H PRN PRN PRN Reason: AGITATION Last Admin: 07/28/18 08:50 Dose: 5 mg Hydromorphone HCl (Dilaudid Inj) 1 mg IV Q3H PRN PRN PRN Reason: SEVERE PAIN (6-11/25) Sodium Chloride () 250 mls @ 15 mls/hr IV .[id number] PRN PRN Reason: SALINE FLUSH Sodium Chloride () 250 mls @ 15 mls/hr IV .[id number] PRN PRN Reason: SALINE FLUSH Labetalol HCl (Trandate) 20 mg IV Q4H PRN PRN PRN Reason: Sbp Greater Than 150 Last Admin: 07/28/18 01:54 Dose: 20 mg Lisinopril (Zestril) 10 mg PO DAILY [facility] Last Admin: 07/28/18 10:18 Dose: Not Given Metoprolol Tartrate (Lopressor (Beta Maddy)) 5 mg IV Q6H PRN PRN PRN Reason: hr above 120 Last Admin: 07/28/18 08:50 Dose: 5 mg Ondansetron HCl (Zofran) 4 mg IV Q6H PRN PRN PRN Reason: Nausea Last Admin: 07/28/18 08:50 Dose: 4 mg Quetiapine Fumarate (Seroquel) 50 mg PO BID [facility] Last Admin: 07/28/18 10:18 Dose: Not Given Sodium Chloride () 5 - 15 ml IV UD PRN PRN Reason: SALINE FLUSH Last Admin: 07/28/18 01:50 Dose: 10 ml Medical Necessity - Tobacco Use Smoking Status: Never smoker Assessment/Plan All Active Problems (Last Updated 12/21/17 @ 08:49 by Diane Hopkins) Opioid withdrawal (Acute) Altered mental status (Acute) Acute metabolic encephalopathy (Acute) NSTEMI (non-ST elevated myocardial infarction) (Acute) 1. AMS secondary to toxic encephalopathy/iatrogenic respiratory failure was present on admission -As described in the HPI, she has been on chronic narcotics for very long time and apparently ran out of her fentanyl patch and OxyContin 2 or 3 days prior, however now per report from the daughter she went home and counted the pills and it looks like she took more than her allotted dosing would allow. -She was given a dose of Narcan in the ER to no avail and she is currently intubated and sedated -She had a CT scan at the outside facility of her head which showed potentially new lytic lesions in her skull -She has been extubated though she is nonverbal now and difficult to reorient and does not follow commands -Baker is in place -Pepcid IV twice daily -Her blood pressure was significantly elevated today and this is likely secondary to agitation from pain, will start with IV Dilaudid 1 mg every 3 hours as needed 2. Multiple myeloma/chronic anemia/hypocalcemia -Per the daughter, she completed chemotherapy and was skin to follow-up with [facility] with these new lytic lesions in her skull for a new chemo and possible radiation. -Hemoglobin is stable at 8.5 -She has to take her father to see Dr. Ybarra today, and she wants to discuss her mother's care. She is considering hospice however this is a very stressful time for her because her brother is on vacation and her father is on hospice, and her own is on dialysis. 3. Nonobstructive coronary artery disease/history of left heart cath/left bundle branch block/HTN -Left bundle branch block does not appear to be new, therefore will not consult cardiology -She had a cardiac cath in 2018 with an EF of 45% and moderate left ventricular systolic dysfunction -No history of heart failure, she may be on Lasix 20 mg daily, currently we will continue with IV fluids since she is not eating or drinking -Continue her home medications once verified 4. Depression/anxiety/dementia -Unsure as to how extensive her dementia is and whether or not it is progressive -We will continue her Celexa DVT: Lovenox and SCDs [place] care planning: Spent 20 minutes discussing hospice care and she states that she has already considered it and was supposed to be called on Thursday to further discuss for her mother. Code Visit Inpatient E&M: 53336 Subs Hosp L2 Procedures: 33056 Advncd Care Plan 30 Min
[2018-07-28] MEDS: Enoxaparin 40 MG/0.4 ML Syringe SC (11:01)
--- NOTE | 2018-07-28 11:34 | PN_ITS ---
Subjective: Overnight, patient has remained hemodynamically stable. Patient has been significantly agitated and did respond transiently to Haldol. Patient has been tachycardic and hypertensive, but it is unclear how accurate noninvasive method has been. Patient will make eye contact, but is not interacting or responding to her name. General: Alert, Confused, Disoriented, - - Agitated. Rolling around the bed frequently. HEENT: Atraumatic, PERRLA, EOMI, Normocephalic, - - No scleral icterus or injection noted. Oral: Moist Mucosa, No Gingival or Mucosal Lesions/ Ulcerations Neck: Supple, No JVD, No Nodes, Trachea Midline Lungs: No rhonchi, No wheeze, No rales, Diminished, - - Symmetric expansion. No dullness to percussion. Cardiovascular: Normal S1, Normal S2, No murmurs, No rub noted, No Gallop, Tachycardic Abdomen: Bowel Sounds Present, Soft, Non Tender, Non-Distended Extremities: No clubbing, No cyanosis, Edema Skin: No rashes, No breakdown Musculoskeletal: No Tenderness to Palpation of Joints or Extremities Lymphatic: No Cervical, Supraclavicular, or Inguinal Adenopathy Neurological: Cranial nerves II-XII grossly intact, - - Spontaneous movement of all extremities. Remains confused. Strength appears to be intact, along with sensation. Psych/Mental Status: Anxious, Impulsive, Restless Vital Signs Temp Pulse Resp BP Pulse Ox 35.7 C L 124 H 22 H 184/58 H 96 07/28/18 08:00 07/28/18 11:00 07/28/18 11:00 07/28/18 11:00 07/28/18 11:00 Oxygen Flow Rate (L/min) 2 Oxygen Delivery Method Room Air Weight: 67.8 kg Body Mass Index (BMI) 25.2 Intake and Output for Last 24 Hours 07/26/18 07/27/18 07/28/18 23:59 23:59 23:59 Intake Total 5164.9 / 5164.9 1654 / 1654 42.2 / 42.2 Output Total 1949 / 1949 3350 / 3350 1500 / 1500 Balance 3214.9 / 3214.9 -1696 / -1696 -1457.8 / -1457.8 Labs (Last 48 Hours) 07/27/18 07/27/18 07/27/18 04:10 04:10 04:10 WBC 5.7 RBC 3.27 L Hgb 8.5 L Hct 27.9 L MCV 85.3 MCH 26.0 L MCHC 30.5 L RDW 16.3 H RDW Differential 49.0 H Plt Count 196 MPV 9.9 Immature Gran % (Auto) 0.200 Neut % (Auto) 79.8 H Lymph % (Auto) 6.0 L [place] % (Auto) 7.6 Eos % (Auto) 6.0 H Baso % (Auto) 0.4 Absolute Neuts (auto) 4.5 Absolute Lymphs (auto) 0.34 L Total Counted Not Reportable Differential Comment SCANNED Specimen Type Sample Site pH Bicarbonate Actual POC Total CO2 Base Excess O2 Saturation ABG pCO2 ABG pO2 Jonny Test O2 Delivery Device Blood Gas Notified Whom Blood Gas Notified Time Sodium 146 H Potassium 3.8 Chloride 113 H Carbon Dioxide 23.0 Anion Gap 10 BUN 8 Creatinine 0.49 L Estim Creat Clear Calc 44.41 Est GFR (MDRD) Af Amer 159 Est GFR (MDRD) Non-Af 131 BUN/Creatinine Ratio 16.4 Glucose 115 H Calcium 7.4 L Phosphorus 2.8 Magnesium 1.9 07/27/18 07/28/18 07/28/18 21:49 04:25 04:25 WBC 12.4 H RBC 4.39 Hgb 11.1 L Hct 35.9 L MCV 81.8 MCH 25.3 L MCHC 30.9 L RDW 16.4 H RDW Differential 47.8 H Plt Count 420 MPV 10.2 Immature Gran % (Auto) 0.200 Neut % (Auto) 93.9 H Lymph % (Auto) 2.7 L [place] % (Auto) 2.9 Eos % (Auto) 0.0 Baso % (Auto) 0.3 Absolute Neuts (auto) 11.6 H Absolute Lymphs (auto) 0.34 L Total Counted Not Reportable Differential Comment SCANNED Specimen Type ART Sample Site R Radial pH 7.49 H Bicarbonate Actual 19.0 L POC Total CO2 20 Base Excess -4 L O2 Saturation 96 ABG pCO2 24.7 L ABG pO2 70 L Jonny Test POS O2 Delivery Device Room Air Blood Gas Notified Whom [facility] Blood Gas Notified Time 2150 Sodium 145 Potassium 3.6 Chloride 107 Carbon Dioxide 24.0 Anion Gap 14 BUN 14 Creatinine 0.82 Estim Creat Clear Calc 54.16 Est GFR (MDRD) Af Amer 88 Est GFR (MDRD) Non-Af 73 BUN/Creatinine Ratio 17.1 Glucose 162 H Calcium 9.0 Phosphorus 2.4 L Magnesium 1.8 Microbiology 07/28/18 05:50 Stool C. difficile DNA Amplification - Final 07/24/18 20:00 Sputum, Induced/Lukens Gram Stain - Final 07/24/18 20:00 Sputum, Induced/Lukens Respiratory Culture - Final Medical Necessity - Tobacco Use Smoking Status: Never smoker Assessment/Plan All Active Problems (Last Updated 12/21/17 @ 08:49 by Diane Hopkins) Opioid withdrawal (Acute) Altered mental status (Acute) Acute metabolic encephalopathy (Acute) NSTEMI (non-ST elevated myocardial infarction) (Acute) RECOMMENDATIONS: 1. Continue Seroquel 2. Wean FiO2 to maintain oxygen saturations at or above 90%. 3. Agree with initiation of narcotic therapy 4. Consult oncology for goals of therapy 5. Continue with as needed IV medications for blood pressure for now IMPRESSIONS: 1. Acute respiratory failure Patient is tolerated extubation well. Patient is on room air and is not having any significant cough. This appears to be at its baseline at this time. 2. Encephalopathy Patient continues to be significantly confused and agitated. Patient did have new lytic lesions reported on outside CAT scan and does have a history of multiple myeloma. This is followed by the [facility]. Patient is on the delirium protocol. Patient has been weaned off of all sedation yesterday. Does remain on Seroquel therapy. Patient has had some diarrhea, but this may be secondary to opiate withdrawal and recent tube feeds. 3. Personal history of multiple myeloma The patient is currently followed by Dr. Ybarra at [facility]. Consultation may need to be placed to them once patient more stable in light of the lytic lesions noted on CT head. Recommend obtaining oncology evaluation for prognostication and treatment options. 4. Depression/anxiety/dementia/hypertension Complicates care, management, recovery and prognosis. Recommend physical therapy evaluation once medically stabilized. Patient has not been appropriate enough to have a bedside swallow evaluation to this point. Code Visit Inpatient E&M: 84398 Subs Hosp L3
--- NOTE | 2018-07-28 14:07 | CASEMGMT ---
DESTINEY faxed updates to Marco A Aragon. Saray RUIZ [employer]
--- NOTE | 2018-07-28 20:06 | NURSING ---
BP cuff placed on pt's R calf d/t persistent flexion of BUE,BP 220/94. BP cuff placed on pt's RFA and pt distracted while cuff inflates, BP 190/87.
[2018-07-29] VITALS (29 sets, daily range): BP systolic 156–200; BP diastolic 48–110; PULSE 73–120; RESP 18–35; TEMP 36.6–37.7; O2SAT 91–99
[2018-07-29] MEDS: HYDROmorphone 1 MG/ML Syringe IV ×3 (00:05→06:35)
[2018-07-29] MEDS: 0.9% NaCl Peripheral Flush Adult/Peds IV ×6 (00:06→20:10)
[2018-07-29] MEDS: Enalaprilat 1.25 MG/ML Vial IV ×4 (03:43→23:03)
[2018-07-29 05:01] LABS: Absolute Lymphocyte Count 0.75 X10^3/ul (0.83-4.51); Absolute Neutrophil Count 13.4 X10^3/uL (2.0-7.7); Basophil# 0.01 X10^3/uL; Basophil% 0.1 % (0-1); Eosinophil# 0.01 X10^3/uL; Eosinophils% 0.1 % (0-5); Hemoglobin 10.3 g/dl (12.0-15.0); Lymphocyte # 0.75 X10^3/ul (4.0); Mean Corp Hgb Conc 30.3 g/gl (32-36); Mean Corpuscular Hgb 25.2 pg (27.0-32.0); Mean Corpuscular Volume 83.3 fL (81-99); Mean Platelet Vol. 10.9 fl (6.2-12.0); Monocyte% 4.7 % (0-10); Neutrophil # 13.37 X10^3/uL (2.7-7.7); Neutrophil % 89.9 % (47-70); Platelet Count 372 K/mm3 (150-450); RBC Distribution Width CV 16.7 % (11.6-14.6); RBC Distribution Width SD 49.5 fl (35.1-43.9); Red Blood Count 4.08 M/mm3 (4.2-5.4); White Blood Count 14.9 K/mm3 (4.4-11.0)
[2018-07-29 05:10] LABS: POSITIVE COUNT NO; POSITIVE DIFFERENTIAL NO; POSITIVE MORPHOLOGY NO
[2018-07-29] MEDS: CHLORHEXIDINE GLUC 2% CLOTH 1 EACH TOWELETTE TOPICAL (05:18)
[2018-07-29 05:20] LABS: Anion Gap 13 (5-15); BUN 40 mg/dL (7-18); BUN/Creat Ratio 36.4 RATIO (10-20); Calcium,Total 8.8 mg/dL (8.5-10.1); Chloride 115 mmol/L (98-107); EST Glomerular Filtration Rate 52 mL/min (>60); Est Glom Filt Rate - Afr Amer 62 mL/min (>60); Estimated Creatinine Clearance 40.38 ml/min; Glucose 155 mg/dL (74-106); Potassium 3.3 mmol/L (3.5-5.1); Sodium Level 153 mmol/L (136-145)
--- NOTE | 2018-07-29 07:10 | PCM.PN.INT ---
Subjective: Patient did okay overnight from a hemodynamic standpoint. However, patient remains agitated and does not follow commands. Patient has been receiving Dilaudid every 3 hours with some improvement in agitation. Patient is still not been able to take anything by mouth. General: Alert, Confused, Disoriented, Non-Cooperative, - - Will stop and track when spoken to, but not interacting or vocalizing at this time HEENT: Atraumatic, PERRLA, EOMI, Normocephalic, - - No scleral icterus or injection noted. Oral: Moist Mucosa, No Gingival or Mucosal Lesions/ Ulcerations Neck: Supple, No JVD, No Nodes, Trachea Midline Lungs: No rhonchi, No wheeze, No rales, Diminished Cardiovascular: Regular Rhythm, Normal S1, Normal S2, No murmurs, No rub noted, No Gallop, Tachycardic, - - Improved following Dilaudid Abdomen: Bowel Sounds Present, Soft, Non Tender, Non-Distended Extremities: No clubbing, No cyanosis, No edema Skin: - - No significant change compared to previous Musculoskeletal: No Tenderness to Palpation of Joints or Extremities Lymphatic: No Cervical, Supraclavicular, or Inguinal Adenopathy Neurological: Cranial nerves II-XII grossly intact, Neuro grossly intact, Motor Exam 5/5 strength throughout Psych/Mental Status: Anxious, Impulsive, Restless Vital Signs Temp Pulse Resp BP Pulse Ox 36.9 C 103 H 26 H 163/107 H 96 07/29/18 04:00 07/29/18 06:00 07/29/18 06:00 07/29/18 06:00 07/29/18 06:00 Oxygen Flow Rate (L/min) 2 Oxygen Delivery Method Nasal Cannula Weight: 64.4 kg Body Mass Index (BMI) 25.2 Intake and Output for Last 24 Hours 07/27/18 07/28/18 07/29/18 23:59 23:59 23:59 Intake Total 1654 / 1654 42.2 / 42.2 Output Total 3350 / 3350 2100 / 2100 100 / 100 Balance -1696 / -1696 -2057.8 / -2057.8 -100 / -100 Labs (Last 48 Hours) 07/27/18 07/28/18 07/28/18 21:49 04:25 04:25 WBC 12.4 H RBC 4.39 Hgb 11.1 L Hct 35.9 L MCV 81.8 MCH 25.3 L MCHC 30.9 L RDW 16.4 H RDW Differential 47.8 H Plt Count 420 MPV 10.2 Immature Gran % (Auto) 0.200 Neut % (Auto) 93.9 H Lymph % (Auto) 2.7 L [place] % (Auto) 2.9 Eos % (Auto) 0.0 Baso % (Auto) 0.3 Absolute Neuts (auto) 11.6 H Absolute Lymphs (auto) 0.34 L Total Counted Not Reportable Differential Comment SCANNED Specimen Type ART Sample Site R Radial pH 7.49 H Bicarbonate Actual 19.0 L POC Total CO2 20 Base Excess -4 L O2 Saturation 96 ABG pCO2 24.7 L ABG pO2 70 L Jonny Test POS O2 Delivery Device Room Air Blood Gas Notified Whom [facility] Blood Gas Notified Time 2150 Sodium 145 Potassium 3.6 Chloride 107 Carbon Dioxide 24.0 Anion Gap 14 BUN 14 Creatinine 0.82 Estim Creat Clear Calc 54.16 Est GFR (MDRD) Af Amer 88 Est GFR (MDRD) Non-Af 73 BUN/Creatinine Ratio 17.1 Glucose 162 H Calcium 9.0 Phosphorus 2.4 L Magnesium 1.8 07/29/18 07/29/18 03:55 03:55 WBC 14.9 H RBC 4.08 L Hgb 10.3 L Hct 34.0 L MCV 83.3 MCH 25.2 L MCHC 30.3 L RDW 16.7 H RDW Differential 49.5 H Plt Count 372 MPV 10.9 Immature Gran % (Auto) 0.200 Neut % (Auto) 89.9 H Lymph % (Auto) 5.0 L [place] % (Auto) 4.7 Eos % (Auto) 0.1 Baso % (Auto) 0.1 Absolute Neuts (auto) 13.4 H Absolute Lymphs (auto) 0.75 L Total Counted Not Reportable Differential Comment Specimen Type Sample Site pH Bicarbonate Actual POC Total CO2 Base Excess O2 Saturation ABG pCO2 ABG pO2 Jonny Test O2 Delivery Device Blood Gas Notified Whom Blood Gas Notified Time Sodium 153 H Potassium 3.3 L Chloride 115 H Carbon Dioxide 25.0 Anion Gap 13 BUN 40 H Creatinine 1.10 H Estim Creat Clear Calc 40.38 Est GFR (MDRD) Af Amer 62 Est GFR (MDRD) Non-Af 52 L BUN/Creatinine Ratio 36.4 H Glucose 155 H Calcium 8.8 Phosphorus Magnesium Microbiology 07/28/18 05:50 Stool C. difficile DNA Amplification - Final 07/24/18 20:00 Sputum, Induced/Lukens Gram Stain - Final 07/24/18 20:00 Sputum, Induced/Lukens Respiratory Culture - Final Medical Necessity - Tobacco Use Smoking Status: Never smoker Assessment/Plan All Active Problems (Last Updated 12/21/17 @ 08:49 by Diane Hopkins) Opioid withdrawal (Acute) Altered mental status (Acute) Acute metabolic encephalopathy (Acute) NSTEMI (non-ST elevated myocardial infarction) (Acute) RECOMMENDATIONS: 1. Continue Seroquel 2. Wean FiO2 to maintain oxygen saturations at or above 90%. 3. Agree with initiation of narcotic therapy 4. Await oncology recommendations 5. Continue with as needed IV medications for blood pressure for now IMPRESSIONS: 1. Acute respiratory failure Patient is tolerated extubation well. Patient is on room air to minimal nasal cannula and is not having any significant cough. This appears to be at its baseline at this time. 2. Encephalopathy Patient continues to be significantly confused and agitated. Patient did have new lytic lesions reported on outside CAT scan and does have a history of multiple myeloma. This is followed by the [facility]. Patient is on the delirium protocol. Patient remains on Seroquel therapy, but propofol and Precedex have been discontinued. Patient is receiving Dilaudid and this appears to have improved her mentation somewhat, but she is reportedly still very different from baseline. 3. Personal history of multiple myeloma The patient is currently followed by Dr. Ybarra at [facility]. Consultation may need to be placed to them once patient more stable in light of the lytic lesions noted on CT head. Awaiting oncology evaluation for prognostication and treatment options. 4. Depression/anxiety/dementia/hypertension Complicates care, management, recovery and prognosis. Recommend physical therapy evaluation once medically stabilized. Patient has not been appropriate enough to have a bedside swallow evaluation to this point. Code Visit Inpatient E&M: 44934 Subs Hosp L3
--- NOTE | 2018-07-29 07:14 | PN_ITS ---
Subjective: Patient did okay overnight from a hemodynamic standpoint. However, patient remains agitated and does not follow commands. Patient has been receiving Dilaudid every 3 hours with some improvement in agitation. Patient is still not been able to take anything by mouth. General: Alert, Confused, Disoriented, Non-Cooperative, - - Will stop and track when spoken to, but not interacting or vocalizing at this time HEENT: Atraumatic, PERRLA, EOMI, Normocephalic, - - No scleral icterus or injection noted. Oral: Moist Mucosa, No Gingival or Mucosal Lesions/ Ulcerations Neck: Supple, No JVD, No Nodes, Trachea Midline Lungs: No rhonchi, No wheeze, No rales, Diminished Cardiovascular: Regular Rhythm, Normal S1, Normal S2, No murmurs, No rub noted, No Gallop, Tachycardic, - - Improved following Dilaudid Abdomen: Bowel Sounds Present, Soft, Non Tender, Non-Distended Extremities: No clubbing, No cyanosis, No edema Skin: - - No significant change compared to previous Musculoskeletal: No Tenderness to Palpation of Joints or Extremities Lymphatic: No Cervical, Supraclavicular, or Inguinal Adenopathy Neurological: Cranial nerves II-XII grossly intact, Neuro grossly intact, Motor Exam 5/5 strength throughout Psych/Mental Status: Anxious, Impulsive, Restless Vital Signs Temp Pulse Resp BP Pulse Ox 36.9 C 103 H 26 H 163/107 H 96 07/29/18 04:00 07/29/18 06:00 07/29/18 06:00 07/29/18 06:00 07/29/18 06:00 Oxygen Flow Rate (L/min) 2 Oxygen Delivery Method Nasal Cannula Weight: 64.4 kg Body Mass Index (BMI) 25.2 Intake and Output for Last 24 Hours 07/27/18 07/28/18 07/29/18 23:59 23:59 23:59 Intake Total 1654 / 1654 42.2 / 42.2 Output Total 3350 / 3350 2100 / 2100 100 / 100 Balance -1696 / -1696 -2057.8 / -2057.8 -100 / -100 Labs (Last 48 Hours) 07/27/18 07/28/18 07/28/18 21:49 04:25 04:25 WBC 12.4 H RBC 4.39 Hgb 11.1 L Hct 35.9 L MCV 81.8 MCH 25.3 L MCHC 30.9 L RDW 16.4 H RDW Differential 47.8 H Plt Count 420 MPV 10.2 Immature Gran % (Auto) 0.200 Neut % (Auto) 93.9 H Lymph % (Auto) 2.7 L [place] % (Auto) 2.9 Eos % (Auto) 0.0 Baso % (Auto) 0.3 Absolute Neuts (auto) 11.6 H Absolute Lymphs (auto) 0.34 L Total Counted Not Reportable Differential Comment SCANNED Specimen Type ART Sample Site R Radial pH 7.49 H Bicarbonate Actual 19.0 L POC Total CO2 20 Base Excess -4 L O2 Saturation 96 ABG pCO2 24.7 L ABG pO2 70 L Jonny Test POS O2 Delivery Device Room Air Blood Gas Notified Whom [facility] Blood Gas Notified Time 2150 Sodium 145 Potassium 3.6 Chloride 107 Carbon Dioxide 24.0 Anion Gap 14 BUN 14 Creatinine 0.82 Estim Creat Clear Calc 54.16 Est GFR (MDRD) Af Amer 88 Est GFR (MDRD) Non-Af 73 BUN/Creatinine Ratio 17.1 Glucose 162 H Calcium 9.0 Phosphorus 2.4 L Magnesium 1.8 07/29/18 07/29/18 03:55 03:55 WBC 14.9 H RBC 4.08 L Hgb 10.3 L Hct 34.0 L MCV 83.3 MCH 25.2 L MCHC 30.3 L RDW 16.7 H RDW Differential 49.5 H Plt Count 372 MPV 10.9 Immature Gran % (Auto) 0.200 Neut % (Auto) 89.9 H Lymph % (Auto) 5.0 L [place] % (Auto) 4.7 Eos % (Auto) 0.1 Baso % (Auto) 0.1 Absolute Neuts (auto) 13.4 H Absolute Lymphs (auto) 0.75 L Total Counted Not Reportable Differential Comment Specimen Type Sample Site pH Bicarbonate Actual POC Total CO2 Base Excess O2 Saturation ABG pCO2 ABG pO2 Jonny Test O2 Delivery Device Blood Gas Notified Whom Blood Gas Notified Time Sodium 153 H Potassium 3.3 L Chloride 115 H Carbon Dioxide 25.0 Anion Gap 13 BUN 40 H Creatinine 1.10 H Estim Creat Clear Calc 40.38 Est GFR (MDRD) Af Amer 62 Est GFR (MDRD) Non-Af 52 L BUN/Creatinine Ratio 36.4 H Glucose 155 H Calcium 8.8 Phosphorus Magnesium Microbiology 07/28/18 05:50 Stool C. difficile DNA Amplification - Final 07/24/18 20:00 Sputum, Induced/Lukens Gram Stain - Final 07/24/18 20:00 Sputum, Induced/Lukens Respiratory Culture - Final Medical Necessity - Tobacco Use Smoking Status: Never smoker Assessment/Plan All Active Problems (Last Updated 12/21/17 @ 08:49 by Diane Hopkins) Opioid withdrawal (Acute) Altered mental status (Acute) Acute metabolic encephalopathy (Acute) NSTEMI (non-ST elevated myocardial infarction) (Acute) RECOMMENDATIONS: 1. Continue Seroquel 2. Wean FiO2 to maintain oxygen saturations at or above 90%. 3. Agree with initiation of narcotic therapy 4. Await oncology recommendations 5. Continue with as needed IV medications for blood pressure for now IMPRESSIONS: 1. Acute respiratory failure Patient is tolerated extubation well. Patient is on room air to minimal nasal cannula and is not having any significant cough. This appears to be at its baseline at this time. 2. Encephalopathy Patient continues to be significantly confused and agitated. Patient did have new lytic lesions reported on outside CAT scan and does have a history of multiple myeloma. This is followed by the [facility]. Patient is on the delirium protocol. Patient remains on Seroquel therapy, but propofol and Precedex have been discontinued. Patient is receiving Dilaudid and this appears to have improved her mentation somewhat, but she is reportedly still very different from baseline. 3. Personal history of multiple myeloma The patient is currently followed by Dr. Ybarra at [facility]. Consultation may need to be placed to them once patient more stable in light of the lytic lesions noted on CT head. Awaiting oncology evaluation for prognostication and treatment options. 4. Depression/anxiety/dementia/hypertension Complicates care, management, recovery and prognosis. Recommend physical therapy evaluation once medically stabilized. Patient has not been appropriate enough to have a bedside swallow evaluation to this point. Code Visit Inpatient E&M: 65736 Subs Hosp L3
--- NOTE | 2018-07-29 08:34 | NURSING ---
unable to assess d/t pt condition
--- NOTE | 2018-07-29 10:02 | CASEMGMT ---
SW participated in ICU rounds, plan continues to be for [facility]. SW spoke w/daughter Lizbeth after rounds, support offered. SW explained if she wants to speak w/hospice sooner than Thursday, SW can call and ask them to come in sooner. Daughter states understanding, she states does want to see if some of her confusion resolves before making any decisions--as Dr. Ybarra had indicated perhaps her confusion is medication related. SW explained will continue to be available as things progress for any support or questions. CASH Bauer
[2018-07-29] MEDS: Potassium Chloride 40 MEQ in Dext 5%-0.45% NS 1,000 ML 75 MEQ IV ×2 (10:08→21:41)
[2018-07-29] MEDS: Enoxaparin 40 MG/0.4 ML Syringe SC (11:07)
--- NOTE | 2018-07-29 14:14 | PCM.PN.HOSP ---
Patient Problems: Active and Suspected Problems (Last Updated 12/21/17 @ 08:49 by Diane Hopkins) Opioid withdrawal (Acute) Altered mental status (Acute) Subjective: Resting much more comfortably now, have removed Haldol and Seroquel and she seems to be less restless Vitals/I&O's: Vital Signs Temp Pulse Resp BP Pulse Ox 98.0 F 101 H 26 H 185/84 H 97 07/29/18 12:00 07/29/18 12:00 07/29/18 12:00 07/29/18 12:00 07/29/18 12:00 Oxygen Flow Rate (L/min) 2 Oxygen Delivery Method Nasal Cannula Weight: 141 lb 15.643 oz Body Mass Index (BMI) 25.2 Intake and Output for Last 24 Hours 07/27/18 07/28/18 07/29/18 23:59 23:59 23:59 Intake Total 1654 / 1654 42.2 / 42.2 Output Total 3350 / 3350 2100 / 2100 250 / 250 Balance -1696 / -1696 -2057.8 / -2057.8 -250 / -250 General: confused and disoriented and does not follow commands HEENT: Atraumatic, PERRLA, Normocephalic Oral: Dry Mucosa Neck: Supple, No JVD Lungs: Normal air movement, No wheeze, No rales, coarse breath sounds bilaterally Cardiovascular: Regular rate, regular Rhythm, Normal S1, Normal S2, No murmurs Abdomen: Soft, Non-Distended, No Hepato-splenomegaly Extremities: No edema, Capillary Refill Less than 3 Seconds Skin: No rashes, No breakdown Neurological: She is moving all extremities freely Psych/Mental Status: - - Unable to obtain Microbiology Past 72 Hours 07/28/18 05:50 Stool C. difficile DNA Amplification - Final 07/24/18 20:00 Sputum, Induced/Lukens Gram Stain - Final 07/24/18 20:00 Sputum, Induced/Lukens Respiratory Culture - Final Laboratory Results 07/29/18 03:55: WBC 14.9 H, RBC 4.08 L, Hgb 10.3 L, Hct 34.0 L, MCV 83.3, MCH 25.2 L, MCHC 30.3 L, RDW 16.7 H, RDW Differential 49.5 H, Plt Count 372, MPV 10.9, Immature Gran % (Auto) 0.200, Neut % (Auto) 89.9 H, Lymph % (Auto) 5.0 L, [place] % (Auto) 4.7, Eos % (Auto) 0.1, Baso % (Auto) 0.1, Absolute Neuts (auto) 13.4 H, Absolute Lymphs (auto) 0.75 L, Total Counted Not Reportable 07/29/18 03:55: Sodium 153 H, Potassium 3.3 L, Chloride 115 H, Carbon Dioxide 25.0, Anion Gap 13, BUN 40 H, Creatinine 1.10 H, Estim Creat Clear Calc 40.38, Est GFR (MDRD) Af Amer 62, Est GFR (MDRD) Non-Af 52 L, BUN/Creatinine Ratio 36.4 H, Glucose 155 H, Calcium 8.8 Current Medications Acyclovir (Zovirax) 400 mg PO BID [facility] Last Admin: 07/29/18 10:08 Dose: Not Given Albuterol Sulfate (Ventolin Aerosols) 2.5 mg INHALATION Q2H PRN PRN PRN Reason: SOB/WHEEZING Amlodipine Besylate (Norvasc) 5 mg PO DAILY [facility] Last Admin: 07/29/18 10:04 Dose: Not Given Aspirin (Ecotrin) 81 mg PO DAILY@0800 [facility] Last Admin: 07/29/18 08:23 Dose: Not Given Chlorhexidine Gluconate () 1 each TOPICAL DAILY [facility] Last Admin: 07/29/18 05:18 Dose: 1 each Citalopram Hydrobromide (Celexa) 10 mg PO DAILY [facility] Last Admin: 07/29/18 10:04 Dose: Not Given Dextrose (D50w Syringe) 0 gm IV X1 PRN; Protocol PRN Reason: Hypoglycemia Enalaprilat (Vasotec) 1.25 mg IV Q6 [facility] Last Admin: 07/29/18 11:09 Dose: 1.25 mg Enoxaparin Sodium (Lovenox) 40 mg SC DAILY@1000 [facility] Last Admin: 07/29/18 11:07 Dose: 40 mg Famotidine (Pepcid) 20 mg PO BID [facility] Last Admin: 07/29/18 10:05 Dose: Not Given Furosemide (Lasix) 20 mg PO DAILY [facility] Last Admin: 07/29/18 10:04 Dose: Not Given Glucagon () 1 mg IM .X1 PRN PRN Reason: Hypoglycemia Hydromorphone HCl (Dilaudid Inj) 1 mg IV Q3H PRN PRN PRN Reason: SEVERE PAIN (6-11/25) Last Admin: 07/29/18 06:35 Dose: 1 mg Sodium Chloride () 250 mls @ 15 mls/hr IV .[id number] PRN PRN Reason: SALINE FLUSH Sodium Chloride () 250 mls @ 15 mls/hr IV .[id number] PRN PRN Reason: SALINE FLUSH Potassium Chloride 40 meq/ (Dextrose/Sodium Chloride) 1,020 mls @ 75 mls/hr IV .[id number] BENNIE Last Admin: 07/29/18 10:08 Dose: 75 mls/hr Labetalol HCl (Trandate) 20 mg IV Q4H PRN PRN PRN Reason: Sbp Greater Than 150 Last Admin: 07/29/18 10:09 Dose: 20 mg Lisinopril (Zestril) 10 mg PO DAILY [facility] Last Admin: 07/29/18 10:08 Dose: Not Given Metoprolol Tartrate (Lopressor (Beta Maddy)) 5 mg IV Q6H PRN PRN PRN Reason: hr above 120 Last Admin: 07/28/18 17:27 Dose: 5 mg Ondansetron HCl (Zofran) 4 mg IV Q6H PRN PRN PRN Reason: Nausea Last Admin: 07/28/18 08:50 Dose: 4 mg Sodium Chloride () 5 - 15 ml IV UD PRN PRN Reason: SALINE FLUSH Last Admin: 07/29/18 10:09 Dose: 10 ml Medical Necessity - Tobacco Use Smoking Status: Never smoker Assessment/Plan All Active Problems (Last Updated 12/21/17 @ 08:49 by Diane Hopkins) Opioid withdrawal (Acute) Altered mental status (Acute) Acute metabolic encephalopathy (Acute) NSTEMI (non-ST elevated myocardial infarction) (Acute) 1. AMS secondary to toxic encephalopathy/iatrogenic respiratory failure was present on admission -As described in the HPI, she has been on chronic narcotics for very long time and apparently ran out of her fentanyl patch and OxyContin 2 or 3 days prior, however now per report from the daughter she went home and counted the pills and it looks like she took more than her allotted dosing would allow. -She was given a dose of Narcan in the ER to no avail and she is currently intubated and sedated -She had a CT scan at the outside facility of her head which showed potentially new lytic lesions in her skull -She has been extubated though she is nonverbal now and difficult to reorient and does not follow commands -Baker is in place -Pepcid IV twice daily -Continue with Dilaudid 1 mg IV every 3 hours as needed 2. Multiple myeloma/chronic anemia/hypocalcemia -Per the daughter, she completed chemotherapy and was skin to follow-up with [facility] with these new lytic lesions in her skull for a new chemo and possible radiation. -Hemoglobin is stable at 8.5 -Appreciate oncology input 3. Nonobstructive coronary artery disease/history of left heart cath/left bundle branch block/HTN -Left bundle branch block does not appear to be new, therefore will not consult cardiology -She had a cardiac cath in 2018 with an EF of 45% and moderate left ventricular systolic dysfunction -No history of heart failure, continue with Lasix 20 mg daily -Continue her home medications once verified 4. Depression/anxiety/dementia -Unsure as to how extensive her dementia is and whether or not it is progressive -We will continue her Celexa DVT: Lovenox and SCDs Code Visit Inpatient E&M: [id number] Subs Hosp L2
--- NOTE | 2018-07-29 14:17 | PN_ITS ---
Patient Problems: Active and Suspected Problems (Last Updated 12/21/17 @ 08:49 by Diane Hopkins) Opioid withdrawal (Acute) Altered mental status (Acute) Subjective: Resting much more comfortably now, have removed Haldol and Seroquel and she seems to be less restless Vitals/I&O's: Vital Signs Temp Pulse Resp BP Pulse Ox 98.0 F 101 H 26 H 185/84 H 97 07/29/18 12:00 07/29/18 12:00 07/29/18 12:00 07/29/18 12:00 07/29/18 12:00 Oxygen Flow Rate (L/min) 2 Oxygen Delivery Method Nasal Cannula Weight: 141 lb 15.643 oz Body Mass Index (BMI) 25.2 Intake and Output for Last 24 Hours 07/27/18 07/28/18 07/29/18 23:59 23:59 23:59 Intake Total 1654 / 1654 42.2 / 42.2 Output Total 3350 / 3350 2100 / 2100 250 / 250 Balance -1696 / -1696 -2057.8 / -2057.8 -250 / -250 General: confused and disoriented and does not follow commands HEENT: Atraumatic, PERRLA, Normocephalic Oral: Dry Mucosa Neck: Supple, No JVD Lungs: Normal air movement, No wheeze, No rales, coarse breath sounds bilaterally Cardiovascular: Regular rate, regular Rhythm, Normal S1, Normal S2, No murmurs Abdomen: Soft, Non-Distended, No Hepato-splenomegaly Extremities: No edema, Capillary Refill Less than 3 Seconds Skin: No rashes, No breakdown Neurological: She is moving all extremities freely Psych/Mental Status: - - Unable to obtain Microbiology Past 72 Hours 07/28/18 05:50 Stool C. difficile DNA Amplification - Final 07/24/18 20:00 Sputum, Induced/Lukens Gram Stain - Final 07/24/18 20:00 Sputum, Induced/Lukens Respiratory Culture - Final Laboratory Results 07/29/18 03:55: WBC 14.9 H, RBC 4.08 L, Hgb 10.3 L, Hct 34.0 L, MCV 83.3, MCH 25.2 L, MCHC 30.3 L, RDW 16.7 H, RDW Differential 49.5 H, Plt Count 372, MPV 10.9, Immature Gran % (Auto) 0.200, Neut % (Auto) 89.9 H, Lymph % (Auto) 5.0 L, [place] % (Auto) 4.7, Eos % (Auto) 0.1, Baso % (Auto) 0.1, Absolute Neuts (auto) 13.4 H, Absolute Lymphs (auto) 0.75 L, Total Counted Not Reportable 07/29/18 03:55: Sodium 153 H, Potassium 3.3 L, Chloride 115 H, Carbon Dioxide 25.0, Anion Gap 13, BUN 40 H, Creatinine 1.10 H, Estim Creat Clear Calc 40.38, Est GFR (MDRD) Af Amer 62, Est GFR (MDRD) Non-Af 52 L, BUN/Creatinine Ratio 36.4 H, Glucose 155 H, Calcium 8.8 Current Medications Acyclovir (Zovirax) 400 mg PO BID [facility] Last Admin: 07/29/18 10:08 Dose: Not Given Albuterol Sulfate (Ventolin Aerosols) 2.5 mg INHALATION Q2H PRN PRN PRN Reason: SOB/WHEEZING Amlodipine Besylate (Norvasc) 5 mg PO DAILY [facility] Last Admin: 07/29/18 10:04 Dose: Not Given Aspirin (Ecotrin) 81 mg PO DAILY@0800 [facility] Last Admin: 07/29/18 08:23 Dose: Not Given Chlorhexidine Gluconate () 1 each TOPICAL DAILY [facility] Last Admin: 07/29/18 05:18 Dose: 1 each Citalopram Hydrobromide (Celexa) 10 mg PO DAILY [facility] Last Admin: 07/29/18 10:04 Dose: Not Given Dextrose (D50w Syringe) 0 gm IV X1 PRN; Protocol PRN Reason: Hypoglycemia Enalaprilat (Vasotec) 1.25 mg IV Q6 [facility] Last Admin: 07/29/18 11:09 Dose: 1.25 mg Enoxaparin Sodium (Lovenox) 40 mg SC DAILY@1000 [facility] Last Admin: 07/29/18 11:07 Dose: 40 mg Famotidine (Pepcid) 20 mg PO BID [facility] Last Admin: 07/29/18 10:05 Dose: Not Given Furosemide (Lasix) 20 mg PO DAILY [facility] Last Admin: 07/29/18 10:04 Dose: Not Given Glucagon () 1 mg IM .X1 PRN PRN Reason: Hypoglycemia Hydromorphone HCl (Dilaudid Inj) 1 mg IV Q3H PRN PRN PRN Reason: SEVERE PAIN (6-11/25) Last Admin: 07/29/18 06:35 Dose: 1 mg Sodium Chloride () 250 mls @ 15 mls/hr IV .[id number] PRN PRN Reason: SALINE FLUSH Sodium Chloride () 250 mls @ 15 mls/hr IV .[id number] PRN PRN Reason: SALINE FLUSH Potassium Chloride 40 meq/ (Dextrose/Sodium Chloride) 1,020 mls @ 75 mls/hr IV .[id number] [facility] Last Admin: 07/29/18 10:08 Dose: 75 mls/hr Labetalol HCl (Trandate) 20 mg IV Q4H PRN PRN PRN Reason: Sbp Greater Than 150 Last Admin: 07/29/18 10:09 Dose: 20 mg Lisinopril (Zestril) 10 mg PO DAILY [facility] Last Admin: 07/29/18 10:08 Dose: Not Given Metoprolol Tartrate (Lopressor (Beta Maddy)) 5 mg IV Q6H PRN PRN PRN Reason: hr above 120 Last Admin: 07/28/18 17:27 Dose: 5 mg Ondansetron HCl (Zofran) 4 mg IV Q6H PRN PRN PRN Reason: Nausea Last Admin: 07/28/18 08:50 Dose: 4 mg Sodium Chloride () 5 - 15 ml IV UD PRN PRN Reason: SALINE FLUSH Last Admin: 07/29/18 10:09 Dose: 10 ml Medical Necessity - Tobacco Use Smoking Status: Never smoker Assessment/Plan All Active Problems (Last Updated 12/21/17 @ 08:49 by Diane Hopkins) Opioid withdrawal (Acute) Altered mental status (Acute) Acute metabolic encephalopathy (Acute) NSTEMI (non-ST elevated myocardial infarction) (Acute) 1. AMS secondary to toxic encephalopathy/iatrogenic respiratory failure was present on admission -As described in the HPI, she has been on chronic narcotics for very long time and apparently ran out of her fentanyl patch and OxyContin 2 or 3 days prior, however now per report from the daughter she went home and counted the pills and it looks like she took more than her allotted dosing would allow. -She was given a dose of Narcan in the ER to no avail and she is currently intubated and sedated -She had a CT scan at the outside facility of her head which showed potentially new lytic lesions in her skull -She has been extubated though she is nonverbal now and difficult to reorient and does not follow commands -Baker is in place -Pepcid IV twice daily -Continue with Dilaudid 1 mg IV every 3 hours as needed 2. Multiple myeloma/chronic anemia/hypocalcemia -Per the daughter, she completed chemotherapy and was skin to follow-up with [facility] with these new lytic lesions in her skull for a new chemo and possible radiation. -Hemoglobin is stable at 8.5 -Appreciate oncology input 3. Nonobstructive coronary artery disease/history of left heart cath/left bundle branch block/HTN -Left bundle branch block does not appear to be new, therefore will not consult cardiology -She had a cardiac cath in 2018 with an EF of 45% and moderate left ventricular systolic dysfunction -No history of heart failure, continue with Lasix 20 mg daily -Continue her home medications once verified 4. Depression/anxiety/dementia -Unsure as to how extensive her dementia is and whether or not it is progressive -We will continue her Celexa DVT: Lovenox and SCDs Code Visit Inpatient E&M: 90571 Subs Hosp L2
[2018-07-30] VITALS (35 sets, daily range): BP systolic 142–206; BP diastolic 43–117; PULSE 81–117; RESP 10–40; TEMP 36.6–37.7; O2SAT 3–99
[2018-07-30] MEDS: 0.9% NaCl Peripheral Flush Adult/Peds IV ×5 (00:11→23:40)
[2018-07-30] MEDS: HYDROmorphone 1 MG/ML Syringe IV (03:51)
[2018-07-30] MEDS: CHLORHEXIDINE GLUC 2% CLOTH 1 EACH TOWELETTE TOPICAL (04:06)
[2018-07-30] MEDS: Enalaprilat 1.25 MG/ML Vial IV (05:25)
[2018-07-30 05:26] LABS: Absolute Neutrophil Count 12.8 X10^3/uL (2.0-7.7); Basophil# 0.01 X10^3/uL; Basophil% 0.1 % (0-1); Hematocrit 34.7 % (37-47); Hemoglobin 10.4 g/dl (12.0-15.0); Mean Corpuscular Hgb 25.6 pg (27.0-32.0); Mean Corpuscular Volume 85.3 fL (81-99); Mean Platelet Vol. 9.8 fl (6.2-12.0); Monocyte# 0.29 X10^3/uL; Neutrophil # 12.78 X10^3/uL (2.7-7.7); Neutrophil % 88.6 % (47-70); Platelet Count 379 K/mm3 (150-450); RBC Distribution Width CV 16.9 % (11.6-14.6); RBC Distribution Width SD 52.3 fl (35.1-43.9); Red Blood Count 4.07 M/mm3 (4.2-5.4); White Blood Count 14.4 K/mm3 (4.4-11.0)
[2018-07-30 05:32] LABS: POSITIVE COUNT NO; POSITIVE DIFFERENTIAL NO; POSITIVE MORPHOLOGY NO
[2018-07-30 05:38] LABS: Anion Gap 7 (5-15); BUN 44 mg/dL (7-18); BUN/Creat Ratio 46.4 RATIO (10-20); Calcium,Total 8.2 mg/dL (8.5-10.1); Chloride 122 mmol/L (98-107); Creatinine, Serum 0.95 mg/dL (0.55-1.02); EST Glomerular Filtration Rate 61 mL/min (>60); Est Glom Filt Rate - Afr Amer 74 mL/min (>60); Estimated Creatinine Clearance 46.75 ml/min; Glucose 189 mg/dL (74-106); Potassium 4.3 mmol/L (3.5-5.1); Sodium Level 156 mmol/L (136-145)
[2018-07-30] MEDS: hydrALAZINE 20 MG/ML Vial 10 MG IV ×4 (07:32→20:11)
--- NOTE | 2018-07-30 07:35 | PCM.PN.INT ---
Subjective: Patient appears to be doing better from a mental status standpoint. Patient is not moving all around the bed. Reportedly, nursing was able to get the patient to shake her head appropriately to yes and no answers, but she just made eye contact and tract. Patient not following commands for myself. Patient has had elevated blood pressures overnight, but urine output has been maintained. General: Alert, Confused, Disoriented, Non-Cooperative, - - Appears stated age HEENT: Atraumatic, PERRLA, EOMI, Normocephalic, - - Slight scleral injection Oral: Moist Mucosa, No Gingival or Mucosal Lesions/ Ulcerations Neck: Supple, No JVD, No Nodes, Trachea Midline Lungs: No wheeze, Diminished, Rhonchi Cardiovascular: Regular Rhythm, Normal S1, Normal S2, No murmurs, No rub noted, No Gallop, Tachycardic Abdomen: Bowel Sounds Present, Soft, Non Tender, Non-Distended Extremities: No clubbing, No cyanosis, No edema, Capillary Refill Less than 3 Seconds Skin: - - No significant change compared to previous Musculoskeletal: No Tenderness to Palpation of Joints or Extremities Lymphatic: No Cervical, Supraclavicular, or Inguinal Adenopathy Neurological: Cranial nerves II-XII grossly intact, - - Moves all extremities appropriately. Readily tracks, but not vocalizing Psych/Mental Status: Flat Affect Vital Signs Temp Pulse Resp BP Pulse Ox 37.1 C 115 H 36 H 206/115 H 93 07/30/18 06:00 07/30/18 07:32 07/30/18 06:00 07/30/18 07:32 07/30/18 06:00 Oxygen Flow Rate (L/min) 2 Oxygen Delivery Method Nasal Cannula Weight: 64.4 kg Body Mass Index (BMI) 25.2 Intake and Output for Last 24 Hours 07/28/18 07/29/18 07/30/18 23:59 23:59 23:59 Intake Total 42.2 / 42.2 564 / 564 879 / 879 Output Total 2099 / 2099 250 / 250 Balance -2057.8 / -2057.8 314 / 314 879 / 879 Labs (Last 48 Hours) 07/29/18 07/29/18 07/30/18 03:55 03:55 05:15 WBC 14.9 H 14.4 H RBC 4.08 L 4.07 L Hgb 10.3 L 10.4 L Hct 34.0 L 34.7 L MCV 83.3 85.3 MCH 25.2 L 25.6 L MCHC 30.3 L 30.0 L RDW 16.7 H 16.9 H RDW Differential 49.5 H 52.3 H Plt Count 372 379 MPV 10.9 9.8 Immature Gran % (Auto) 0.200 0.300 Neut % (Auto) 89.9 H 88.6 H Lymph % (Auto) 5.0 L 9.0 L [place] % (Auto) 4.7 2.0 Eos % (Auto) 0.1 0.0 Baso % (Auto) 0.1 0.1 Absolute Neuts (auto) 13.4 H 12.8 H Absolute Lymphs (auto) 0.75 L 1.30 Total Counted Not Reportable Not Reportable Sodium 153 H Potassium 3.3 L Chloride 115 H Carbon Dioxide 25.0 Anion Gap 13 BUN 40 H Creatinine 1.10 H Estim Creat Clear Calc 40.38 Est GFR (MDRD) Af Amer 62 Est GFR (MDRD) Non-Af 52 L BUN/Creatinine Ratio 36.4 H Glucose 155 H Calcium 8.8 07/30/18 05:15 WBC RBC Hgb Hct MCV MCH MCHC RDW RDW Differential Plt Count MPV Immature Gran % (Auto) Neut % (Auto) Lymph % (Auto) [place] % (Auto) Eos % (Auto) Baso % (Auto) Absolute Neuts (auto) Absolute Lymphs (auto) Total Counted Sodium 156 H Potassium 4.3 Chloride 122 H Carbon Dioxide 27.0 Anion Gap 7 BUN 44 H Creatinine 0.95 Estim Creat Clear Calc 46.75 Est GFR (MDRD) Af Amer 74 Est GFR (MDRD) Non-Af 61 BUN/Creatinine Ratio 46.4 H Glucose 189 H Calcium 8.2 L Microbiology 07/28/18 05:50 Stool C. difficile DNA Amplification - Final Medical Necessity - Tobacco Use Smoking Status: Never smoker Assessment/Plan All Active Problems (Last Updated 12/21/17 @ 08:49 by Diane Hopkins) Opioid withdrawal (Acute) Altered mental status (Acute) Acute metabolic encephalopathy (Acute) NSTEMI (non-ST elevated myocardial infarction) (Acute) RECOMMENDATIONS: 1. Increase Vasotec. Add hydralazine 2. Wean FiO2 to maintain oxygen saturations at or above 90%. 3. Continue IV narcotics, transition to p.o. if patient able to pass bedside swallow 4. Initiation of p.o. antihypertensives if passes bedside swallow 5. Aggressive pulmonary toileting 6. Possible transfer from the intensive care unit later today if mental status improves enough to clear airway secretions IMPRESSIONS: 1. Acute respiratory failure Patient is tolerated extubation well. Patient is on room air to minimal nasal cannula and is not having any significant cough. This appears to be at its baseline at this time. Patient is having some difficulty in expectorating secretions. Responds well to oral suctioning. 2. Encephalopathy Patient continues to be significantly confused and agitated. Patient did have new lytic lesions reported on outside CAT scan and does have a history of multiple myeloma. This is followed by the [facility]. Patient is on the delirium protocol. Patient is currently on no sedative therapy. Patient has not received Seroquel in several days secondary to swallow status. Patient does appear to have responded well to initiation of pain medications. 3. Personal history of multiple myeloma The patient is currently followed by Dr. Ybarra at [facility]. Consultation may need to be placed to them once patient more stable in light of the lytic lesions noted on CT head. Awaiting oncology evaluation for prognostication and treatment options. 4. Hypertensive urgency Patient is no longer agitated and blood pressures remain significantly elevated. Somewhat limited secondary to p.o. status. Will increase Vasotec and add hydralazine. Cannot exclude the need for nicardipine for blood pressure control if this continues. 5. Depression/anxiety/dementia Complicates care, management, recovery and prognosis. Recommend physical therapy evaluation once medically stabilized. Patient has not been appropriate enough to have a bedside swallow evaluation to this point. Code Visit Inpatient E&M: 50550 Subs Hosp L3
--- NOTE | 2018-07-30 07:35 | PCM.CONS.GEN ---
Problem List (1) Multiple myeloma in relapse Status: Chronic (2) Opioid withdrawal Status: Acute (3) Encephalopathy Status: Acute Reason for Consult Date of Consultation: 07/29/18 Reason for Consultation: Altered mental status and relapsed multiple myeloma w pathologic compression fracture at T7 History of Present Illness: The patient is a 73 year old F multiple myeloma, cardiomyopathy, hypertension, peripheral neuropathy and anemia who presented this week into the emergency room for altered mental status. Per report from the ED physician at the outside hospital- at [facility], Mrs. 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 It started in her 30s when she was having migraines and was given narcotics by her primary care doctor. She was diagnosed with multiple myeloma for over the last 5 years. Had multiple chemotherapy treatment in the past, and most recently on Darzalax /bortezomib /dexamethasone. Recent evaluation skeletal survey showed a new compression fracture at T7, as well as multiple lytic lesion of the skull increased in size. CT scan today which demonstrated new lytic lesions in the calvarium which represent metastasis or progression of disease. She was scheduled for palliative radiation therapy to her thoracic spine this coming week. Apparently, she ran out of her fentanyl patch and her other narcotics 2 or 3 days ago. She also had a problem with insomnia. She was prescribed Restoril 15mg for sleep as needed. Adding to her family, she took some of her 's medication as well as 7 Restoril , Ativan that weekend. At the outside hospital she was extremely agitated, she was given a dose of Narcan which made her symptoms of withdrawal worse. She was given Ativan which was unsuccessful and calming her down, she was then given an for 5 doses of 50 mcg of fentanyl, which also did not improve her symptoms. Because of her agitation and the amount of medications that she had been given, she was sedated and intubated and transfer to [facility]. Hospital course: Was weaned off the ventilator over last 3 days, propofol and Precedex have been discontinued. However she become agitated and continued to have significant confusion with significant pain. She was nonverbal but remained afebrile with an elevated WBC and serum sodium. Past Medical History Past Medical History (Chronic Problems): Chronic Problems (Last Updated 12/21/17 @ 08:49 by Diane Hopkins) Multiple myeloma in relapse (Chronic) Cardiomyopathy in disease classified elsewhere (Chronic) History of left heart catheterization (Chronic 12/16/17) Moderate Global hypokinesis, EF 45%. Less than 30% mild luminal irregularities in Mid RCA, all other coronaries normal. Anemia (Chronic) Dementia (Chronic) Peripheral neuropathy (Chronic) Depression (Chronic) Hypertension (Chronic) Multiple myeloma (Chronic) Status post hip surgery (Chronic) Debility (Chronic) Medical History: Medical History (Last Updated 12/21/17 @ 08:49 by Diane Hopkins) Cardiomyopathy in disease classified elsewhere (Chronic) I43 Allergies levofloxacin [From Levaquin] Allergy (Verified 10/17/15 20:42) Unknown metoprolol Allergy (Verified 10/17/15 20:42) Unknown Sulfa (Sulfonamide Antibiotics) Allergy (Verified 10/17/15 20:42) Unknown Home Medications: Ambulatory Orders Medication Instructions Recorded Albuterol Inhaler [Ventolin Hfa] 1 puff INHALATION Q4H PRN PRN 10/17/15 Aspirin E.C. [Ecotrin] 81 mg PO DAILY@0800 10/17/15 Calcium Citrate/Vitamin D3 1,000 unit PO DAILY 10/17/15 [Calcium Citrate - Vit D Tablet] Citalopram [Celexa] 10 mg PO DAILY 10/17/15 Gabapentin [Neurontin] 400 mg PO TIDCM 10/17/15 Guaifenesin [Mucinex] 600 mg PO DAILY 10/17/15 Multivitamin [Daily Multiple 1 each PO DAILY 10/17/15 Vitamin] Omeprazole [Prilosec] 20 mg PO BID 10/17/15 Amlodipine [Norvasc] 5 mg PO DAILY 12/03/16 Dexamethasone 12 mg PO QWEEK 12/03/16 Lisinopril [Zestril] 10 mg PO DAILY 12/03/16 Lutein 20 mg PO DAILY 12/03/16 Oxycodone [Oxyir] 5 mg PO Q6H PRN PRN #12 tablet 12/06/16 Acetaminophen [Tylenol Extra 500 mg PO Q8H PRN PRN 12/15/17 Strength] Acyclovir [Zovirax] 400 mg PO BID 12/15/17 Clobetasol Propionate [Temovate 1 applic TOPICAL QWEEK 12/15/17 Ointment] Estradiol [Estrace Vaginal Cream] 1 gm VAGINAL Q7D 12/15/17 Furosemide [Lasix] 20 mg PO DAILY 12/15/17 Magnesium PO DAILY 12/15/17 Pamidronate Disodium 30 mg IV 12/15/17 proMETHazine tablet [Phenergan 25 mg PO Q6H PRN PRN 12/15/17 tablet] traZODone [Desyrel] 100 mg PO DAILY 12/15/17 clopidogrel 75 mg tablet 75 mg PO DAILY #30 tab 06/29/18 fentaNYL patch [Duragesic patch] 50 mcg TRANSDERM. Q72H 07/24/18 Surgical History: Surgical History (Last Reviewed 07/24/18 @ 18:47 by Avtar Cervantes MD) History of left heart catheterization (Chronic) Onset Date: 12/16/17 Z98.890 Moderate Global hypokinesis, EF 45%. Less than 30% mild luminal irregularities in Mid RCA, all other coronaries normal. Surgical History: - - hip surgery 12/01/16 Psychiatric History: Depression, - - dementia ABSENCE MANAGEMENT CONSULTANT History: No pertinent ABSENCE MANAGEMENT CONSULTANT history Lives: Spouse/ Significant Other Smoking Status: Never smoker Alcohol: None Drugs: None - *Family History Maternal History Items: No pertinent history Paternal History Items: No pertinent history Review of Systems Musculoskeletal: Reports: Back Pain, Leg Pain Neurological: Reports: - - Delirium Psychiatric: Reports: Depression Patient Problems: Active and Suspected Problems (Last Updated 12/21/17 @ 08:49 by Diane Hopkins) Opioid withdrawal (Acute) Altered mental status (Acute) Encephalopathy (Acute) - Physical Exam General: No apparent distress, Confused, Lethargic HEENT: Atraumatic, PERRLA, Normocephalic Oral: Moist Mucosa Neck: Supple, No JVD Lungs: Clear to auscultation, No rhonchi, No wheeze, No rales Cardiovascular: Regular rate, Regular Rhythm, Normal S1, Normal S2, No murmurs Abdomen: Soft, Non Tender, No Hepato-splenomegaly, Hypoactive Bowel Sounds Extremities: No clubbing, No cyanosis, No edema Skin: No rashes, No breakdown Lymphatic: No Cervical, Supraclavicular, or Inguinal Adenopathy Neurological: - - Unable to obtain Vital Signs Temp Pulse Resp BP Pulse Ox 98.7 F 115 H 36 H 206/115 H 93 07/30/18 06:00 07/30/18 07:32 06/14/19 06:00 07/30/18 07:32 07/30/18 06:00 Oxygen Flow Rate (L/min) 2 Oxygen Delivery Method Nasal Cannula Weight: 141 lb 15.643 oz Body Mass Index (BMI) 25.2 Intake and Output for Last 24 Hours 07/28/18 07/29/18 07/30/18 23:59 23:59 23:59 Intake Total 42.2 / 42.2 564 / 564 879 / 879 Output Total 2100 / 2100 250 / 250 Balance -2057.8 / -2057.8 314 / 314 879 / 879 Microbiology Past 72 Hours 07/28/18 05:50 C. difficile DNA Amplification - Final Stool 07/24/18 20:00 Gram Stain - Final Sputum, Induced/Lukens Respiratory Culture - Final Laboratory Tests Past 24 Hrs 07/30/18 07/30/18 05:15 05:15 WBC 14.4 H RBC 4.07 L Hgb 10.4 L Hct 34.7 L MCV 85.3 MCH 25.6 L MCHC 30.0 L RDW 16.9 H RDW Differential 52.3 H Plt Count 379 MPV 9.8 Immature Gran % (Auto) 0.300 Neut % (Auto) 88.6 H Lymph % (Auto) 9.0 L [place] % (Auto) 2.0 Eos % (Auto) 0.0 Baso % (Auto) 0.1 Absolute Neuts (auto) 12.8 H Absolute Lymphs (auto) 1.30 Total Counted Not Reportable Sodium 156 H Potassium 4.3 Chloride 122 H Carbon Dioxide 27.0 Anion Gap 7 BUN 44 H Creatinine 0.95 Estim Creat Clear Calc 46.75 Est GFR (MDRD) Af Amer 74 Est GFR (MDRD) Non-Af 61 BUN/Creatinine Ratio 46.4 H Glucose 189 H Calcium 8.2 L Assessment/Plan All Active Problems (Last Updated 12/21/17 @ 08:49 by Diane Hopkins) Opioid withdrawal (Acute) Altered mental status (Acute) Encephalopathy (Acute) Acute metabolic encephalopathy (Acute) NSTEMI (non-ST elevated myocardial infarction) (Acute) 1) relapsed/refractory multiple myeloma; compression fracture at T7; lytic lesions noted in skull consistent with multiple myeloma -Palliative radiation treatment on hold. -Continue with pain management; possibly starting her back on a fentanyl RAILS DEVELOPER -Consider adding Decadron 4 mg/day -Further palliative chemotherapy treatment discussed in my office when she completed palliative radiation therapy. -Hold off further testing MRI brain unless patient's MS does not recover 2) encephalopathy -Patient continued to have significant confusion and agitation. -Hypernatremia and possible source of hospital-acquired infection need to be R/O -Patient is on the delirium protocol -Continue Seroquel and wean as appropriate 3) immunosuppression secondary to multiple myeloma and chemotherapy. -Secondary to chemotherapy -Continue acyclovir prophylaxis -LMWH for DVT prophylaxis -ID work-up if indicated. cc: Dr. Mello Ndiaye; Dr. Avtar Cervantes; Dr. Torrie Khalil; Dr. Silke Ybarra
--- NOTE | 2018-07-30 09:10 | PCM.PN.HOSP ---
Patient Problems: Active and Suspected Problems (Last Updated 12/21/17 @ 08:49 by Diane Hopkins) Opioid withdrawal (Acute) Altered mental status (Acute) Encephalopathy (Acute) Subjective: No issues overnight, she seems to be resting more comfortably now that she is been restarted on pain meds Vitals/I&O's: Vital Signs Temp Pulse Resp BP Pulse Ox 98.7 F 115 H 36 H 206/115 H 84 07/30/18 06:00 07/30/18 07:32 07/30/18 06:00 07/30/18 07:32 07/30/18 08:00 Oxygen Flow Rate (L/min) 2 Oxygen Delivery Method Nasal Cannula Weight: 141 lb 15.643 oz Body Mass Index (BMI) 25.2 Intake and Output for Last 24 Hours 07/28/18 07/29/18 07/30/18 23:59 23:59 23:59 Intake Total 42.2 / 42.2 564 / 564 879 / 879 Output Total 2100 / 2100 250 / 250 Balance -2057.8 / -2056.8 314 / 314 879 / 879 General: confused and disoriented and does not follow commands, nonverbal HEENT: Atraumatic, PERRLA, Normocephalic Oral: Dry Mucosa Neck: Supple, No JVD Lungs: Normal air movement, No wheeze, No rales, coarse breath sounds bilaterally Cardiovascular: Regular rate, regular Rhythm, Normal S1, Normal S2, No murmurs Abdomen: Soft, Non-Distended, No Hepato-splenomegaly Extremities: No edema, Capillary Refill Less than 3 Seconds Skin: No rashes, No breakdown Neurological: She is moving all extremities freely Psych/Mental Status: - - Unable to obtain Microbiology Past 72 Hours 07/28/18 05:50 Stool C. difficile DNA Amplification - Final 07/24/18 20:00 Sputum, Induced/Lukens Gram Stain - Final 07/24/18 20:00 Sputum, Induced/Lukens Respiratory Culture - Final Laboratory Results 07/30/18 05:15: WBC 14.4 H, RBC 4.07 L, Hgb 10.4 L, Hct 34.7 L, MCV 85.3, MCH 25.6 L, MCHC 30.0 L, RDW 16.9 H, RDW Differential 52.3 H, Plt Count 379, MPV 9.8, Immature Gran % (Auto) 0.300, Neut % (Auto) 88.6 H, Lymph % (Auto) 9.0 L, [place] % (Auto) 2.0, Eos % (Auto) 0.0, Baso % (Auto) 0.1, Absolute Neuts (auto) 12.8 H, Absolute Lymphs (auto) 1.30, Total Counted Not Reportable 07/30/18 05:15: Sodium 156 H, Potassium 4.3, Chloride 122 H, Carbon Dioxide 27.0, Anion Gap 7, BUN 44 H, Creatinine 0.95, Estim Creat Clear Calc 46.75, Est GFR (MDRD) Af Amer 74, Est GFR (MDRD) Non-Af 61, BUN/Creatinine Ratio 46.4 H, Glucose 189 H, Calcium 8.2 L Current Medications Acyclovir (Zovirax) 400 mg PO BID [facility] Last Admin: 07/29/18 21:42 Dose: Not Given Albuterol Sulfate (Ventolin Aerosols) 2.5 mg INHALATION Q2H PRN PRN PRN Reason: SOB/WHEEZING Amlodipine Besylate (Norvasc) 5 mg PO DAILY [facility] Last Admin: 07/29/18 10:04 Dose: Not Given Aspirin (Ecotrin) 81 mg PO DAILY@0800 [facility] Last Admin: 07/29/18 08:23 Dose: Not Given Chlorhexidine Gluconate () 1 each TOPICAL DAILY [facility] Last Admin: 07/30/18 04:06 Dose: 1 each Citalopram Hydrobromide (Celexa) 10 mg PO DAILY [facility] Last Admin: 07/29/18 10:04 Dose: Not Given Dextrose (D50w Syringe) 0 gm IV X1 PRN; Protocol PRN Reason: Hypoglycemia Enalaprilat (Vasotec) 2.5 mg IV Q6 [facility] Enoxaparin Sodium (Lovenox) 40 mg SC DAILY@1000 [facility] Last Admin: 07/29/18 11:07 Dose: 40 mg Famotidine (Pepcid) 20 mg PO BID [facility] Last Admin: 07/29/18 21:42 Dose: Not Given Furosemide (Lasix) 20 mg PO DAILY [facility] Last Admin: 07/29/18 10:04 Dose: Not Given Glucagon () 1 mg IM .X1 PRN PRN Reason: Hypoglycemia Hydralazine HCl (Apresoline Iv) 10 mg IV Q4H PRN PRN PRN Reason: Sbp Greater Than 150 Hydromorphone HCl (Dilaudid Inj) 1 mg IV Q3H PRN PRN PRN Reason: SEVERE PAIN (6-11/25) Last Admin: 07/30/18 03:51 Dose: 1 mg Sodium Chloride () 250 mls @ 15 mls/hr IV .[id number] PRN PRN Reason: SALINE FLUSH Sodium Chloride () 250 mls @ 15 mls/hr IV .[id number] PRN PRN Reason: SALINE FLUSH Potassium Chloride 40 meq/ (Dextrose/Sodium Chloride) 1,020 mls @ 75 mls/hr IV .[id number] [facility] Labetalol HCl (Trandate) 20 mg IV Q4H PRN PRN PRN Reason: Sbp Greater Than 150 Last Admin: 07/30/18 08:12 Dose: 20 mg Lisinopril (Zestril) 10 mg PO DAILY [facility] Last Admin: 07/29/18 10:08 Dose: Not Given Metoprolol Tartrate (Lopressor (Beta Maddy)) 5 mg IV Q6H PRN PRN PRN Reason: hr above 120 Last Admin: 07/28/18 17:27 Dose: 5 mg Ondansetron HCl (Zofran) 4 mg IV Q6H PRN PRN PRN Reason: Nausea Last Admin: 07/28/18 08:50 Dose: 4 mg Sodium Chloride () 5 - 15 ml IV UD PRN PRN Reason: SALINE FLUSH Last Admin: 07/30/18 03:53 Dose: 10 ml Medical Necessity - Tobacco Use Smoking Status: Never smoker Assessment/Plan All Active Problems (Last Updated 12/21/17 @ 08:49 by Diane Hopkins) Opioid withdrawal (Acute) Altered mental status (Acute) Encephalopathy (Acute) Acute metabolic encephalopathy (Acute) NSTEMI (non-ST elevated myocardial infarction) (Acute) 1. AMS secondary to toxic encephalopathy/iatrogenic respiratory failure was present on admission -As described in the HPI, she has been on chronic narcotics for very long time and apparently ran out of her fentanyl patch and OxyContin 2 or 3 days prior, however now per report from the daughter she went home and counted the pills and it looks like she took more than her allotted dosing would allow. -She was given a dose of Narcan in the ER to no avail and she is currently intubated and sedated -She had a CT scan at the outside facility of her head which showed potentially new lytic lesions in her skull -She has been extubated though she is nonverbal now and difficult to reorient and does not follow commands -Baker is in place -Pepcid IV twice daily -Continue with Dilaudid 1 mg IV every 3 hours as needed -Given her continued altered mental status may need to proceed with an MRI 2. Multiple myeloma/chronic anemia/hypocalcemia -Per the daughter, she completed chemotherapy and was supposed to follow-up with [facility] with these new lytic lesions in her skull for a new chemo and possible radiation. -Hemoglobin is stable -Appreciate oncology input 3. Nonobstructive coronary artery disease/history of left heart cath/left bundle branch block/HTN -Left bundle branch block does not appear to be new, therefore will not consult cardiology -She had a cardiac cath in 2018 with an EF of 45% and moderate left ventricular systolic dysfunction -No history of heart failure, continue with Lasix 20 mg daily -Continue her home medications once verified 4. Depression/anxiety/dementia -Unsure as to how extensive her dementia is and whether or not it is progressive -We will continue her Celexa DVT: Lovenox and SCDs Code Visit Inpatient E&M: [id number] Subs Hosp L2
--- NOTE | 2018-07-30 09:13 | PN_ITS ---
Patient Problems: Active and Suspected Problems (Last Updated 12/21/17 @ 08:49 by Diane Hopkins) Opioid withdrawal (Acute) Altered mental status (Acute) Encephalopathy (Acute) Subjective: No issues overnight, she seems to be resting more comfortably now that she is been restarted on pain meds Vitals/I&O's: Vital Signs Temp Pulse Resp BP Pulse Ox 98.7 F 115 H 36 H 206/115 H 84 07/30/18 06:00 07/30/18 07:32 07/30/18 06:00 07/30/18 07:32 07/30/18 08:00 Oxygen Flow Rate (L/min) 2 Oxygen Delivery Method Nasal Cannula Weight: 141 lb 15.643 oz Body Mass Index (BMI) 25.2 Intake and Output for Last 24 Hours 07/28/18 07/29/18 07/30/18 23:59 23:59 23:59 Intake Total 42.2 / 42.2 564 / 564 879 / 879 Output Total 2100 / 2100 250 / 250 Balance -2057.8 / -2056.8 314 / 314 879 / 879 General: confused and disoriented and does not follow commands, nonverbal HEENT: Atraumatic, PERRLA, Normocephalic Oral: Dry Mucosa Neck: Supple, No JVD Lungs: Normal air movement, No wheeze, No rales, coarse breath sounds bilaterally Cardiovascular: Regular rate, regular Rhythm, Normal S1, Normal S2, No murmurs Abdomen: Soft, Non-Distended, No Hepato-splenomegaly Extremities: No edema, Capillary Refill Less than 3 Seconds Skin: No rashes, No breakdown Neurological: She is moving all extremities freely Psych/Mental Status: - - Unable to obtain Microbiology Past 72 Hours 07/28/18 05:50 Stool C. difficile DNA Amplification - Final 07/24/18 20:00 Sputum, Induced/Lukens Gram Stain - Final 07/24/18 20:00 Sputum, Induced/Lukens Respiratory Culture - Final Laboratory Results 07/30/18 05:15: WBC 14.4 H, RBC 4.07 L, Hgb 10.4 L, Hct 34.7 L, MCV 85.3, MCH 25.6 L, MCHC 30.0 L, RDW 16.9 H, RDW Differential 52.3 H, Plt Count 379, MPV 9.8, Immature Gran % (Auto) 0.300, Neut % (Auto) 88.6 H, Lymph % (Auto) 9.0 L, [place] % (Auto) 2.0, Eos % (Auto) 0.0, Baso % (Auto) 0.1, Absolute Neuts (auto) 12.8 H, Absolute Lymphs (auto) 1.30, Total Counted Not Reportable 07/30/18 05:15: Sodium 156 H, Potassium 4.3, Chloride 122 H, Carbon Dioxide 27.0, Anion Gap 7, BUN 44 H, Creatinine 0.95, Estim Creat Clear Calc 46.75, Est GFR (MDRD) Af Amer 74, Est GFR (MDRD) Non-Af 61, BUN/Creatinine Ratio 46.4 H, Glucose 189 H, Calcium 8.2 L Current Medications Acyclovir (Zovirax) 400 mg PO BID [facility] Last Admin: 07/29/18 21:42 Dose: Not Given Albuterol Sulfate (Ventolin Aerosols) 2.5 mg INHALATION Q2H PRN PRN PRN Reason: SOB/WHEEZING Amlodipine Besylate (Norvasc) 5 mg PO DAILY [facility] Last Admin: 07/29/18 10:04 Dose: Not Given Aspirin (Ecotrin) 81 mg PO DAILY@0800 [facility] Last Admin: 07/29/18 08:23 Dose: Not Given Chlorhexidine Gluconate () 1 each TOPICAL DAILY [facility] Last Admin: 07/30/18 04:06 Dose: 1 each Citalopram Hydrobromide (Celexa) 10 mg PO DAILY [facility] Last Admin: 07/29/18 10:04 Dose: Not Given Dextrose (D50w Syringe) 0 gm IV X1 PRN; Protocol PRN Reason: Hypoglycemia Enalaprilat (Vasotec) 2.5 mg IV Q6 [facility] Enoxaparin Sodium (Lovenox) 40 mg SC DAILY@1000 [facility] Last Admin: 07/29/18 11:07 Dose: 40 mg Famotidine (Pepcid) 20 mg PO BID [facility] Last Admin: 07/29/18 21:42 Dose: Not Given Furosemide (Lasix) 20 mg PO DAILY [facility] Last Admin: 07/29/18 10:04 Dose: Not Given Glucagon () 1 mg IM .X1 PRN PRN Reason: Hypoglycemia Hydralazine HCl (Apresoline Iv) 10 mg IV Q4H PRN PRN PRN Reason: Sbp Greater Than 150 Hydromorphone HCl (Dilaudid Inj) 1 mg IV Q3H PRN PRN PRN Reason: SEVERE PAIN (6-11/25) Last Admin: 07/30/18 03:51 Dose: 1 mg Sodium Chloride () 250 mls @ 15 mls/hr IV .[id number] PRN PRN Reason: SALINE FLUSH Sodium Chloride () 250 mls @ 15 mls/hr IV .[id number] PRN PRN Reason: SALINE FLUSH Potassium Chloride 40 meq/ (Dextrose/Sodium Chloride) 1,020 mls @ 75 mls/hr IV .[id number] [facility] Labetalol HCl (Trandate) 20 mg IV Q4H PRN PRN PRN Reason: Sbp Greater Than 150 Last Admin: 07/30/18 08:12 Dose: 20 mg Lisinopril (Zestril) 10 mg PO DAILY [facility] Last Admin: 07/29/18 10:08 Dose: Not Given Metoprolol Tartrate (Lopressor (Beta Maddy)) 5 mg IV Q6H PRN PRN PRN Reason: hr above 120 Last Admin: 07/28/18 17:27 Dose: 5 mg Ondansetron HCl (Zofran) 4 mg IV Q6H PRN PRN PRN Reason: Nausea Last Admin: 07/28/18 08:50 Dose: 4 mg Sodium Chloride () 5 - 15 ml IV UD PRN PRN Reason: SALINE FLUSH Last Admin: 07/30/18 03:53 Dose: 10 ml Medical Necessity - Tobacco Use Smoking Status: Never smoker Assessment/Plan All Active Problems (Last Updated 12/21/17 @ 08:49 by Diane Hopkins) Opioid withdrawal (Acute) Altered mental status (Acute) Encephalopathy (Acute) Acute metabolic encephalopathy (Acute) NSTEMI (non-ST elevated myocardial infarction) (Acute) 1. AMS secondary to toxic encephalopathy/iatrogenic respiratory failure was present on admission -As described in the HPI, she has been on chronic narcotics for very long time and apparently ran out of her fentanyl patch and OxyContin 2 or 3 days prior, however now per report from the daughter she went home and counted the pills and it looks like she took more than her allotted dosing would allow. -She was given a dose of Narcan in the ER to no avail and she is currently intubated and sedated -She had a CT scan at the outside facility of her head which showed potentially new lytic lesions in her skull -She has been extubated though she is nonverbal now and difficult to reorient and does not follow commands -Baker is in place -Pepcid IV twice daily -Continue with Dilaudid 1 mg IV every 3 hours as needed -Given her continued altered mental status may need to proceed with an MRI 2. Multiple myeloma/chronic anemia/hypocalcemia -Per the daughter, she completed chemotherapy and was supposed to follow-up with [facility] with these new lytic lesions in her skull for a new chemo and possible radiation. -Hemoglobin is stable -Appreciate oncology input 3. Nonobstructive coronary artery disease/history of left heart cath/left bundle branch block/HTN -Left bundle branch block does not appear to be new, therefore will not consult cardiology -She had a cardiac cath in 2018 with an EF of 45% and moderate left ventricular systolic dysfunction -No history of heart failure, continue with Lasix 20 mg daily -Continue her home medications once verified 4. Depression/anxiety/dementia -Unsure as to how extensive her dementia is and whether or not it is progressive -We will continue her Celexa DVT: Lovenox and SCDs Code Visit Inpatient E&M: [id number] Subs Hosp L2
--- NOTE | 2018-07-30 09:44 | MRI_ITS ---
STUDY: MRI BRAIN WITH AND WITHOUT CONTRAST REASON FOR EXAM: Female, 73 years old. Altered mental status, multiple myeloma TECHNIQUE: Standardized multiplanar fat and water weighted pulse sequences were obtained. 14 Catheter Injection Dotarem was administered for the contrast portion of the examination. COMPARISON: None. FINDINGS: There is mild cerebral atrophy with widening of the extra-axial spaces and ventricular dilatation. There are a limited number of small white matter hyperintensities, distributed throughout the deep white matter tracts of the cerebral hemispheres, consistent with mild chronic white matter ischemic changes. There is no evidence for recent intracranial ischemia or other cause of cytotoxic edema on diffusion weighted imaging (DWI). Normal T2* images of the brain without demonstrated susceptibility artifact. There is no demonstrated hemosiderin stain. Normal bilateral basal ganglia. Normal thalami. There is no extra-axial fluid accumulation. Normal flow voids within the major intracranial circulation suggesting patency by spin echo criteria. Normal venous enhancement. There is no enhancing intra-axial or extra-axial abnormality. Normal sella turcica, pituitary gland, infundibular stalk, optic chiasm and hypothalamus. Normal tectal plate and pineal gland. Normal midbrain, yony and medulla. Normal cerebellum. Normal basal cisterns. Normal bilateral temporal bones. Normal bilateral internal auditory canals. There are bilateral ocular lens implants with otherwise normal intraorbital contents. Normal visualized paranasal sinuses. Normal calvarium and skull base. Normal visualized soft tissue structures. Normal visualized upper cervical spine. MRI/Brain W/WO Contrast IMPRESSION: Involutional changes of the brain, as described above. No acute infarct. Electronically Signed: Sonny Kimbrough MD at 14:22 EDT Tel , Service support ,
[2018-07-30] MEDS: Enoxaparin 40 MG/0.4 ML Syringe SC (10:16)
[2018-07-30] MEDS: Potassium Chloride 40 MEQ in Dext 5%-0.45% NS 1,000 ML 100 MEQ IV (11:55)
[2018-07-30] MEDS: Enalaprilat 1.25 MG/ML Vial 2.5 MG IV ×3 (11:58→23:40)
--- NOTE | 2018-07-30 12:31 | CASEMGMT ---
Addendum entered by Luann Daigle 07/30/18 12:50: DESTINEY called Yudelka at [facility], let her know plan at this point is for pt to still come to [facility] at discharge, though this could change based on MRI results. DESTINEY faxed updates to Yudelka, completed HENS and placed this along w/transport forms on the chart in the event pt does improve and can be discharged on the weekend. CASH Bauer Original Note: DESTINEY participated in ICU rounds this morning, daughter Lizbeth present. As per physician, pt to have MRI today. DESTINEY called [facility], sent updates. Plan continues to be for pt to go to [facility] at discharge, though daughter does still plan to speak w/hospice on Thursday. Green sheet will be placed on chart. CASH Bauer
[2018-07-30 14:11] LABS: Allen Test POS; Base Excess 0 mmol/L (-2 to +2); Bicarbonate 23.5 mmol/L (22-26); Blood Gas Specimen Type ART; O2 Delivery Device Nasal Can; PO2 97 mmHG (75-100); SITE L Radial; SO2 98 % (95-99); Time Given 1402; Total Carbon Dioxide 24 mmol/L; pCO2 31.8 mmHg (35-45); pH 7.48 (7.35-7.45)
--- NOTE | 2018-07-30 15:45 | RAD_ITS ---
STUDY: X-RAY CHEST REASON FOR EXAM: Female, 73 years old. Feeding tube placed TECHNIQUE: Single AP portable view of the chest. COMPARISON: 07/24/2018 FINDINGS: Interval placement of feeding tube with the tip below the diaphragm. Interval removal of endotracheal tube. Interval removal of nasogastric tube. Left subclavian chest port which is unchanged. Poor inspiration with some bibasilar atelectasis. There is no demonstrated pleural abnormality. There is moderate cardiac enlargement. Normal mediastinum and falguni. Normal visualized pulmonary arteries. Normal visualized aortic arch and descending thoracic aorta. Status post vertebroplasty in the lower thoracic spine. Normal visualized ribs, clavicles, and shoulders. There is no demonstrated abnormality of the visualized soft tissue structures of the upper abdomen. RAD/Chest 1 View (Portable) IMPRESSION: 1. Interval removal of endotracheal tube. 2. Interval removal of nasogastric tube. 3. Interval placement of feeding tube with the tip in the right upper quadrant of the abdomen 4. Left subclavian chest port which is unchanged. 5. Poor inspiration with bibasilar atelectasis. Electronically Signed: Sonny Kimbrough MD at 15:59 EDT Tel , Service support ,
--- NOTE | 2018-07-30 15:51 | NURSING ---
doedwin placed w/out diff. Dr. Ndiaye present in pt room. KUB completed.
--- NOTE | 2018-07-30 17:52 | NURSING ---
report called to [facility], PCU, to PCU 109 per bed, ICU staff in attendance
[2018-07-30] MEDS: Vital AF 1.2 Cal Liquid 1,000 ML 20 ML GT (18:55)
[2018-07-30 19:45] LABS: Bedside Glucose 175 mg/dL (70-110)
[2018-07-30] MEDS: Famotidine 20 MG Tablet PO (21:27)
[2018-07-30] MEDS: Acyclovir 200 MG Capsule 400 MG PO (21:27)
[2018-07-30] MEDS: Insulin Lispro 100 UNIT/ML INSULN.PEN SQ (21:30)
[2018-07-30 21:41] LABS: Bedside Glucose 162 mg/dL (70-110)
[2018-07-31] VITALS (23 sets, daily range): BP systolic 118–160; BP diastolic 64–93; PULSE 103–140; RESP 32–42; TEMP 37.1–38.1; O2SAT 88–96
[2018-07-31] MEDS: Insulin Lispro 100 UNIT/ML INSULN.PEN SQ ×6 (01:29→21:31)
[2018-07-31] MEDS: HYDROmorphone 1 MG/ML Syringe IV ×4 (01:30→23:56)
[2018-07-31] MEDS: 0.9% NaCl Peripheral Flush Adult/Peds IV ×8 (01:30→23:57)
--- NOTE | 2018-07-31 01:40 | NURSING ---
Feeding tube rate increased by 20cc/hr per apr at this time. Now running at 40cc/hr. Gave 1 mg IV dilaudid per MD order (see physician notification). When rolling patient to change soiled attends, patient opened eyes. Still nonverbal, will not track fingers. Oral care performed at this time as well.
[2018-07-31 01:46] LABS: Bedside Glucose 175 mg/dL (70-110)
--- NOTE | 2018-07-31 02:23 | RAD_ITS ---
HISTORY: Fever EXAMINATION/TECHNIQUE: XR Chest 1 View: Portable COMPARISON: 07/30/2018 FINDINGS: EKG leads in place. Medical devices: The feeding tube shows some distal migration with the tube tip now in the region of the proximal duodenum. The left subclavian Port-A-Cath is unchanged in position. Normal heart size. Right basilar subsegmental atelectasis. Small right pleural effusion not excluded. No vascular congestion. No pulmonary consolidation. Lumbar spine kyphoplasty and thoracic spine multilevel kyphoplasty. RAD/Chest 1 View (Portable) IMPRESSION: 1. The feeding tube appears in good position with the tube tip in the region of the proximal duodenum. 2. Right basilar subsegmental atelectasis. at 0338 Reported and signed by: Eduard Contreras MD Electronically Signed: Eduard Contreras, at 3:37 EDT Tel , Service support ,
[2018-07-31 02:59] LABS: Absolute Lymphocyte Count 1.54 X10^3/ul (0.83-4.51); Absolute Neutrophil Count 14.8 X10^3/uL (2.0-7.7); Basophil# 0.01 X10^3/uL; Basophil% 0.1 % (0-1); Hematocrit 39.8 % (37-47); Lymphocyte # 1.54 X10^3/ul (4.0); Lymphocyte % 9.3 % (19-41); Mean Corp Hgb Conc 30.2 g/gl (32-36); Mean Corpuscular Hgb 25.8 pg (27.0-32.0); Mean Corpuscular Volume 85.6 fL (81-99); Mean Platelet Vol. 9.5 fl (6.2-12.0); Monocyte# 0.18 X10^3/uL; Monocyte% 1.1 % (0-10); Neutrophil # 14.76 X10^3/uL (2.7-7.7); Neutrophil % 89.2 % (47-70); Platelet Count 451 K/mm3 (150-450); RBC Distribution Width CV 17.4 % (11.6-14.6); RBC Distribution Width SD 53.1 fl (35.1-43.9); Red Blood Count 4.65 M/mm3 (4.2-5.4); White Blood Count 16.5 K/mm3 (4.4-11.0)
[2018-07-31 03:04] LABS: POSITIVE COUNT NO; POSITIVE DIFFERENTIAL NO; POSITIVE MORPHOLOGY NO
[2018-07-31 03:17] LABS: Anion Gap 7 (5-15); BUN 44 mg/dL (7-18); BUN/Creat Ratio 50.1 RATIO (10-20); Calcium,Total 8.5 mg/dL (8.5-10.1); Chloride 126 mmol/L (98-107); Creatinine, Serum 0.88 mg/dL (0.55-1.02); EST Glomerular Filtration Rate 67 mL/min (>60); Est Glom Filt Rate - Afr Amer 81 mL/min (>60); Estimated Creatinine Clearance 50.47 ml/min; Glucose 176 mg/dL (74-106); Magnesium 3.1 mg/dL (1.6-2.6); Potassium 3.9 mmol/L (3.5-5.1); Sodium Level 158 mmol/L (136-145)
[2018-07-31 03:19] LABS: Lactic Acid 1.2 mmol/L (0.4-2.0)
[2018-07-31] MEDS: Metoprolol Tartrate 5 MG/5 ML Vial IV ×3 (05:17→20:45)
[2018-07-31] MEDS: Enalaprilat 1.25 MG/ML Vial 2.5 MG IV (05:18)
[2018-07-31 05:40] LABS: Bedside Glucose 163 mg/dL (70-110)
--- NOTE | 2018-07-31 08:29 | PCM.PN.INT ---
Subjective: Patient did okay overnight. She did have some fever, so cultures were obtained. Patient remains on nasal cannula oxygen. Patient continues to be minimally responsive. Patient reportedly has not attempted to remove CorPak. General: Confused, Disoriented, Non-Cooperative, - HEENT: Atraumatic, PERRLA, EOMI, Normocephalic, - - CorPak in place Oral: Moist Mucosa, No Gingival or Mucosal Lesions/ Ulcerations Neck: Supple, No JVD, No Nodes, Trachea Midline Lungs: No rhonchi, No wheeze, No rales, Diminished, - - Symmetric expansion Cardiovascular: Normal S1, Normal S2, No murmurs, No rub noted, No Gallop, Tachycardic Abdomen: Bowel Sounds Present, Soft, Non Tender, Non-Distended Extremities: No clubbing, No cyanosis, No edema, Capillary Refill Less than 3 Seconds Skin: - - No significant change compared to previous Musculoskeletal: No Tenderness to Palpation of Joints or Extremities Lymphatic: No Cervical, Supraclavicular, or Inguinal Adenopathy Neurological: - - Grossly unchanged compared to previous. Some spontaneous movement noted. Psych/Mental Status: Flat Affect Vital Signs Temp Pulse Resp BP Pulse Ox 37.6 C H 111 H 42 H 154/82 H 94 07/31/18 07:02 07/31/18 07:26 07/31/18 07:02 07/31/18 07:02 07/31/18 07:05 Oxygen Flow Rate (L/min) 3 Oxygen Delivery Method Nasal Cannula Weight: 64.9 kg Body Mass Index (BMI) 25.2 Intake and Output for Last 24 Hours 07/29/18 07/30/18 07/31/18 23:59 23:59 23:59 Intake Total 564 / 564 2512 / 2512 369 / 369 Output Total 250 / 250 Balance 314 / 314 2512 / 2512 369 / 369 Labs (Last 48 Hours) 07/30/18 07/30/18 07/30/18 05:15 05:15 14:03 WBC 14.4 H RBC 4.07 L Hgb 10.4 L Hct 34.7 L MCV 85.3 MCH 25.6 L MCHC 30.0 L RDW 16.9 H RDW Differential 52.3 H Plt Count 379 MPV 9.8 Immature Gran % (Auto) 0.300 Neut % (Auto) 88.6 H Lymph % (Auto) 9.0 L [place] % (Auto) 2.0 Eos % (Auto) 0.0 Baso % (Auto) 0.1 Absolute Neuts (auto) 12.8 H Absolute Lymphs (auto) 1.30 Total Counted Not Reportable Specimen Type ART Sample Site L Radial pH 7.48 H Bicarbonate Actual 23.5 POC Total CO2 24 Base Excess 0 O2 Saturation 98 ABG pCO2 31.8 L ABG pO2 97 Jonny Test POS O2 Delivery Device Nasal Can Liter Flow 4.0 Blood Gas Notified Whom ICU MD Blood Gas Notified Time 1402 Sodium 156 H Potassium 4.3 Chloride 122 H Carbon Dioxide 27.0 Anion Gap 7 BUN 44 H Creatinine 0.95 Estim Creat Clear Calc 46.75 Est GFR (MDRD) Af Amer 74 Est GFR (MDRD) Non-Af 61 BUN/Creatinine Ratio 46.4 H Glucose 189 H Lactic Acid Calcium 8.2 L Phosphorus Magnesium POC Glucose 07/30/18 07/30/18 07/31/18 19:21 21:23 01:26 WBC RBC Hgb Hct MCV MCH MCHC RDW RDW Differential Plt Count MPV Immature Gran % (Auto) Neut % (Auto) Lymph % (Auto) [place] % (Auto) Eos % (Auto) Baso % (Auto) Absolute Neuts (auto) Absolute Lymphs (auto) Total Counted Specimen Type Sample Site pH Bicarbonate Actual POC Total CO2 Base Excess O2 Saturation ABG pCO2 ABG pO2 Jonny Test O2 Delivery Device Liter Flow Blood Gas Notified Whom Blood Gas Notified Time Sodium Potassium Chloride Carbon Dioxide Anion Gap BUN Creatinine Estim Creat Clear Calc Est GFR (MDRD) Af Amer Est GFR (MDRD) Non-Af BUN/Creatinine Ratio Glucose Lactic Acid Calcium Phosphorus Magnesium POC Glucose 175 H 162 H 175 H 07/31/18 07/31/18 07/31/18 02:46 02:46 02:46 WBC 16.5 H RBC 4.65 Hgb 12.0 Hct 39.8 MCV 85.6 MCH 25.8 L MCHC 30.2 L RDW 17.4 H RDW Differential 53.1 H Plt Count 451 H MPV 9.5 Immature Gran % (Auto) 0.300 Neut % (Auto) 89.2 H Lymph % (Auto) 9.3 L [place] % (Auto) 1.1 Eos % (Auto) 0.0 Baso % (Auto) 0.1 Absolute Neuts (auto) 14.8 H Absolute Lymphs (auto) 1.54 Total Counted Not Reportable Specimen Type Sample Site pH Bicarbonate Actual POC Total CO2 Base Excess O2 Saturation ABG pCO2 ABG pO2 Jonny Test O2 Delivery Device Liter Flow Blood Gas Notified Whom Blood Gas Notified Time Sodium 158 H Potassium 3.9 Chloride 126 H Carbon Dioxide 25.0 Anion Gap 7 BUN 44 H Creatinine 0.88 Estim Creat Clear Calc 50.47 Est GFR (MDRD) Af Amer 81 Est GFR (MDRD) Non-Af 67 BUN/Creatinine Ratio 50.1 H Glucose 176 H Lactic Acid 1.2 Calcium 8.5 Phosphorus 3.0 Magnesium 3.1 H POC Glucose 07/31/18 05:16 WBC RBC Hgb Hct MCV MCH MCHC RDW RDW Differential Plt Count MPV Immature Gran % (Auto) Neut % (Auto) Lymph % (Auto) [place] % (Auto) Eos % (Auto) Baso % (Auto) Absolute Neuts (auto) Absolute Lymphs (auto) Total Counted Specimen Type Sample Site pH Bicarbonate Actual POC Total CO2 Base Excess O2 Saturation ABG pCO2 ABG pO2 Jonny Test O2 Delivery Device Liter Flow Blood Gas Notified Whom Blood Gas Notified Time Sodium Potassium Chloride Carbon Dioxide Anion Gap BUN Creatinine Estim Creat Clear Calc Est GFR (MDRD) Af Amer Est GFR (MDRD) Non-Af BUN/Creatinine Ratio Glucose Lactic Acid Calcium Phosphorus Magnesium POC Glucose 163 H Clinical Impression(s) from Imaging Studies Brain MRI 07/30/18 09:44 IMPRESSION: Involutional changes of the brain, as described above. No acute infarct. Electronically Signed: Sonny Kimbrough MD at 14:22 EDT Tel , Service support , Chest X-Ray 07/30/18 15:45 IMPRESSION: 1. Interval removal of endotracheal tube. 2. Interval removal of nasogastric tube. 3. Interval placement of feeding tube with the tip in the right upper quadrant of the abdomen 4. Left subclavian chest port which is unchanged. 5. Poor inspiration with bibasilar atelectasis. Electronically Signed: Sonny Kimbrough MD at 15:59 EDT Tel , Service support , Chest X-Ray 07/31/18 02:23 IMPRESSION: 1. The feeding tube appears in good position with the tube tip in the region of the proximal duodenum. 2. Right basilar subsegmental atelectasis. at 0338 Reported and signed by: Eduard Contreras MD Electronically Signed: Eduard Contreras, at 3:37 EDT Tel , Service support , Medical Necessity - Tobacco Use Smoking Status: Never smoker Assessment/Plan All Active Problems (Last Updated 12/21/17 @ 08:49 by Diane Hopkins) Opioid withdrawal (Acute) Altered mental status (Acute) Encephalopathy (Acute) Acute metabolic encephalopathy (Acute) NSTEMI (non-ST elevated myocardial infarction) (Acute) RECOMMENDATIONS: 1. Likely okay to transition antihypertensives to NG 2. Wean FiO2 to maintain oxygen saturations at or above 90%. 3. Consider transition to morphine liquid 4. Increase free water, D5W versus increased tube feed flushes 5. Aggressive pulmonary toileting 6. Delirium protocol IMPRESSIONS: 1. Acute respiratory failure Patient is tolerated extubation well. Patient is on room air to minimal nasal cannula and is not having any significant cough. This appears to be at its baseline at this time. We will need to watch for secretion accumulation closely. 2. Encephalopathy Patient continues to be significantly confused and agitated. Patient did have new lytic lesions reported on outside CAT scan and does have a history of multiple myeloma. This is followed by the [facility]. Patient is on the delirium protocol. Patient is currently on no sedative therapy. MRI was not suggestive of etiology. Patient does have hypernatremia, hyperchloremia and a leukocytosis. Cultures are pending. Recommend increasing free water. 3. Personal history of multiple myeloma The patient is currently followed by Dr. Ybarra at [facility]. Consultation may need to be placed to them once patient more stable in light of the lytic lesions noted on CT head. Awaiting oncology evaluation for prognostication and treatment options. 4. Hypertensive urgency Improved. Somewhat limited secondary to p.o./NG status. On Norvasc. Will transition from Vasotec to lisinopril as this can be crushed 5. Depression/anxiety/dementia Complicates care, management, recovery and prognosis. Recommend physical therapy evaluation once medically stabilized. Patient has not been appropriate enough to have a bedside swallow evaluation to this point. Code Visit Inpatient E&M: 10240 Subs Hosp L3
--- NOTE | 2018-07-31 08:42 | PN_ITS ---
Subjective: Patient did okay overnight. She did have some fever, so cultures were obtained. Patient remains on nasal cannula oxygen. Patient continues to be minimally responsive. Patient reportedly has not attempted to remove CorPak. General: Confused, Disoriented, Non-Cooperative, - HEENT: Atraumatic, PERRLA, EOMI, Normocephalic, - - CorPak in place Oral: Moist Mucosa, No Gingival or Mucosal Lesions/ Ulcerations Neck: Supple, No JVD, No Nodes, Trachea Midline Lungs: No rhonchi, No wheeze, No rales, Diminished, - - Symmetric expansion Cardiovascular: Normal S1, Normal S2, No murmurs, No rub noted, No Gallop, Tachycardic Abdomen: Bowel Sounds Present, Soft, Non Tender, Non-Distended Extremities: No clubbing, No cyanosis, No edema, Capillary Refill Less than 3 Seconds Skin: - - No significant change compared to previous Musculoskeletal: No Tenderness to Palpation of Joints or Extremities Lymphatic: No Cervical, Supraclavicular, or Inguinal Adenopathy Neurological: - - Grossly unchanged compared to previous. Some spontaneous movement noted. Psych/Mental Status: Flat Affect Vital Signs Temp Pulse Resp BP Pulse Ox 37.6 C H 111 H 42 H 154/82 H 94 07/31/18 07:02 07/31/18 07:26 07/31/18 07:02 07/31/18 07:02 07/31/18 07:05 Oxygen Flow Rate (L/min) 3 Oxygen Delivery Method Nasal Cannula Weight: 64.9 kg Body Mass Index (BMI) 25.2 Intake and Output for Last 24 Hours 07/29/18 07/30/18 07/31/18 23:59 23:59 23:59 Intake Total 564 / 564 2512 / 2512 369 / 369 Output Total 250 / 250 Balance 314 / 314 2512 / 2512 369 / 369 Labs (Last 48 Hours) 07/30/18 07/30/18 07/30/18 05:15 05:15 14:03 WBC 14.4 H RBC 4.07 L Hgb 10.4 L Hct 34.7 L MCV 85.3 MCH 25.6 L MCHC 30.0 L RDW 16.9 H RDW Differential 52.3 H Plt Count 379 MPV 9.8 Immature Gran % (Auto) 0.300 Neut % (Auto) 88.6 H Lymph % (Auto) 9.0 L [place] % (Auto) 2.0 Eos % (Auto) 0.0 Baso % (Auto) 0.1 Absolute Neuts (auto) 12.8 H Absolute Lymphs (auto) 1.30 Total Counted Not Reportable Specimen Type ART Sample Site L Radial pH 7.48 H Bicarbonate Actual 23.5 POC Total CO2 24 Base Excess 0 O2 Saturation 98 ABG pCO2 31.8 L ABG pO2 97 Jonny Test POS O2 Delivery Device Nasal Can Liter Flow 4.0 Blood Gas Notified Whom ICU MD Blood Gas Notified Time 1402 Sodium 156 H Potassium 4.3 Chloride 122 H Carbon Dioxide 27.0 Anion Gap 7 BUN 44 H Creatinine 0.95 Estim Creat Clear Calc 46.75 Est GFR (MDRD) Af Amer 74 Est GFR (MDRD) Non-Af 61 BUN/Creatinine Ratio 46.4 H Glucose 189 H Lactic Acid Calcium 8.2 L Phosphorus Magnesium POC Glucose 07/30/18 07/30/18 07/31/18 19:21 21:23 01:26 WBC RBC Hgb Hct MCV MCH MCHC RDW RDW Differential Plt Count MPV Immature Gran % (Auto) Neut % (Auto) Lymph % (Auto) [place] % (Auto) Eos % (Auto) Baso % (Auto) Absolute Neuts (auto) Absolute Lymphs (auto) Total Counted Specimen Type Sample Site pH Bicarbonate Actual POC Total CO2 Base Excess O2 Saturation ABG pCO2 ABG pO2 Jonny Test O2 Delivery Device Liter Flow Blood Gas Notified Whom Blood Gas Notified Time Sodium Potassium Chloride Carbon Dioxide Anion Gap BUN Creatinine Estim Creat Clear Calc Est GFR (MDRD) Af Amer Est GFR (MDRD) Non-Af BUN/Creatinine Ratio Glucose Lactic Acid Calcium Phosphorus Magnesium POC Glucose 175 H 162 H 175 H 07/31/18 07/31/18 07/31/18 02:46 02:46 02:46 WBC 16.5 H RBC 4.65 Hgb 12.0 Hct 39.8 MCV 85.6 MCH 25.8 L MCHC 30.2 L RDW 17.4 H RDW Differential 53.1 H Plt Count 451 H MPV 9.5 Immature Gran % (Auto) 0.300 Neut % (Auto) 89.2 H Lymph % (Auto) 9.3 L [place] % (Auto) 1.1 Eos % (Auto) 0.0 Baso % (Auto) 0.1 Absolute Neuts (auto) 14.8 H Absolute Lymphs (auto) 1.54 Total Counted Not Reportable Specimen Type Sample Site pH Bicarbonate Actual POC Total CO2 Base Excess O2 Saturation ABG pCO2 ABG pO2 Jonny Test O2 Delivery Device Liter Flow Blood Gas Notified Whom Blood Gas Notified Time Sodium 158 H Potassium 3.9 Chloride 126 H Carbon Dioxide 25.0 Anion Gap 7 BUN 44 H Creatinine 0.88 Estim Creat Clear Calc 50.47 Est GFR (MDRD) Af Amer 81 Est GFR (MDRD) Non-Af 67 BUN/Creatinine Ratio 50.1 H Glucose 176 H Lactic Acid 1.2 Calcium 8.5 Phosphorus 3.0 Magnesium 3.1 H POC Glucose 07/31/18 05:16 WBC RBC Hgb Hct MCV MCH MCHC RDW RDW Differential Plt Count MPV Immature Gran % (Auto) Neut % (Auto) Lymph % (Auto) [place] % (Auto) Eos % (Auto) Baso % (Auto) Absolute Neuts (auto) Absolute Lymphs (auto) Total Counted Specimen Type Sample Site pH Bicarbonate Actual POC Total CO2 Base Excess O2 Saturation ABG pCO2 ABG pO2 Jonny Test O2 Delivery Device Liter Flow Blood Gas Notified Whom Blood Gas Notified Time Sodium Potassium Chloride Carbon Dioxide Anion Gap BUN Creatinine Estim Creat Clear Calc Est GFR (MDRD) Af Amer Est GFR (MDRD) Non-Af BUN/Creatinine Ratio Glucose Lactic Acid Calcium Phosphorus Magnesium POC Glucose 163 H Clinical Impression(s) from Imaging Studies Brain MRI 07/30/18 09:44 IMPRESSION: Involutional changes of the brain, as described above. No acute infarct. Electronically Signed: Sonny Kimbrough MD at 14:22 EDT Tel , Service support , Chest X-Ray 07/30/18 15:45 IMPRESSION: 1. Interval removal of endotracheal tube. 2. Interval removal of nasogastric tube. 3. Interval placement of feeding tube with the tip in the right upper quadrant of the abdomen 4. Left subclavian chest port which is unchanged. 5. Poor inspiration with bibasilar atelectasis. Electronically Signed: Sonny Kimbrough MD at 15:59 EDT Tel , Service support , Chest X-Ray 07/31/18 02:23 IMPRESSION: 1. The feeding tube appears in good position with the tube tip in the region of the proximal duodenum. 2. Right basilar subsegmental atelectasis. at 0338 Reported and signed by: Eduard Contreras MD Electronically Signed: Eduard Contreras, at 3:37 EDT Tel , Service support , Medical Necessity - Tobacco Use Smoking Status: Never smoker Assessment/Plan All Active Problems (Last Updated 12/21/17 @ 08:49 by Diane Hopkins) Opioid withdrawal (Acute) Altered mental status (Acute) Encephalopathy (Acute) Acute metabolic encephalopathy (Acute) NSTEMI (non-ST elevated myocardial infarction) (Acute) RECOMMENDATIONS: 1. Likely okay to transition antihypertensives to NG 2. Wean FiO2 to maintain oxygen saturations at or above 90%. 3. Consider transition to morphine liquid 4. Increase free water, D5W versus increased tube feed flushes 5. Aggressive pulmonary toileting 6. Delirium protocol IMPRESSIONS: 1. Acute respiratory failure Patient is tolerated extubation well. Patient is on room air to minimal nasal cannula and is not having any significant cough. This appears to be at its baseline at this time. We will need to watch for secretion accumulation closely. 2. Encephalopathy Patient continues to be significantly confused and agitated. Patient did have new lytic lesions reported on outside CAT scan and does have a history of multiple myeloma. This is followed by the [facility]. Patient is on the delirium protocol. Patient is currently on no sedative therapy. MRI was not suggestive of etiology. Patient does have hypernatremia, hyperchloremia and a leukocytosis. Cultures are pending. Recommend increasing free water. 3. Personal history of multiple myeloma The patient is currently followed by Dr. Ybarra at [facility]. Consultation may need to be placed to them once patient more stable in light of the lytic lesions noted on CT head. Awaiting oncology evaluation for prognostication and treatment options. 4. Hypertensive urgency Improved. Somewhat limited secondary to p.o./NG status. On Norvasc. Will transition from Vasotec to lisinopril as this can be crushed 5. Depression/anxiety/dementia Complicates care, management, recovery and prognosis. Recommend physical therapy evaluation once medically stabilized. Patient has not been appropriate enough to have a bedside swallow evaluation to this point. Code Visit Inpatient E&M: 59244 Subs Hosp L3
--- NOTE | 2018-07-31 09:32 | PCM.PN.HOSP ---
Patient Problems: Active and Suspected Problems (Last Updated 12/21/17 @ 08:49 by Diane Hopkins) Opioid withdrawal (Acute) Altered mental status (Acute) Encephalopathy (Acute) Subjective: Remains nonverbal and minimally responsive. She continues to have climbing leukocytosis and she had a fever. C. difficile testing was negative as was sputum testing. Blood cultures are pending Vitals/I&O's: Vital Signs Temp Pulse Resp BP Pulse Ox 99.7 F H 111 H 42 H 154/82 H 94 07/31/18 07:02 07/31/18 07:26 07/31/18 07:02 07/31/18 07:02 07/31/18 07:05 Oxygen Flow Rate (L/min) 3 Oxygen Delivery Method Nasal Cannula Weight: 143 lb 1.28 oz Body Mass Index (BMI) 25.2 Intake and Output for Last 24 Hours 07/29/18 07/30/18 07/31/18 23:59 23:59 23:59 Intake Total 564 / 564 2512 / 2512 369 / 369 Output Total 250 / 250 Balance 314 / 314 2512 / 2512 369 / 369 General: confused and disoriented and does not follow commands, nonverbal HEENT: Atraumatic, PERRLA, Normocephalic Oral: Dry Mucosa Neck: Supple, No JVD Lungs: Normal air movement, No wheeze, No rales, coarse breath sounds bilaterally Cardiovascular: Regular rate, regular Rhythm, Normal S1, Normal S2, No murmurs Abdomen: Soft, Non-Distended, No Hepato-splenomegaly Extremities: No edema, Capillary Refill Less than 3 Seconds Skin: No rashes, No breakdown Neurological: She is moving all extremities freely Psych/Mental Status: - - Unable to obtain Microbiology Past 72 Hours 07/28/18 05:50 Stool C. difficile DNA Amplification - Final Laboratory Results 07/30/18 14:03: Specimen Type ART, Sample Site L Radial, pH 7.48 H, Bicarbonate Actual 23.5, POC Total CO2 24, Base Excess 0, O2 Saturation 98, ABG pCO2 31.8 L, ABG pO2 97, Jonny Test POS, O2 Delivery Device Nasal Can, Liter Flow 4.0, Blood Gas Notified Whom ICU , Blood Gas Notified Time 1402 07/30/18 19:21: POC Glucose 175 H 07/30/18 21:23: POC Glucose 162 H 07/31/18 01:26: POC Glucose 175 H 07/31/18 02:46: WBC 16.5 H, RBC 4.65, Hgb 12.0, Hct 39.8, MCV 85.6, MCH 25.8 L, MCHC 30.2 L, RDW 17.4 H, RDW Differential 53.1 H, Plt Count 451 H, MPV 9.5, Immature Gran % (Auto) 0.300, Neut % (Auto) 89.2 H, Lymph % (Auto) 9.3 L, [place] % (Auto) 1.1, Eos % (Auto) 0.0, Baso % (Auto) 0.1, Absolute Neuts (auto) 14.8 H, Absolute Lymphs (auto) 1.54, Total Counted Not Reportable 07/31/18 02:46: Sodium 158 H, Potassium 3.9, Chloride 126 H, Carbon Dioxide 25.0, Anion Gap 7, BUN 44 H, Creatinine 0.88, Estim Creat Clear Calc 50.47, Est GFR (MDRD) Af Amer 81, Est GFR (MDRD) Non-Af 67, BUN/Creatinine Ratio 50.1 H, Glucose 176 H, Calcium 8.5, Phosphorus 3.0, Magnesium 3.1 H 07/31/18 02:46: Lactic Acid 1.2 07/31/18 05:16: POC Glucose 163 H Current Medications Acetaminophen (Tylenol Liquid) 650 mg GT Q6H PRN PRN PRN Reason: fever > 100.7 Acyclovir (Zovirax) 400 mg PO BID [facility] Last Admin: 07/30/18 21:27 Dose: 400 mg Albuterol Sulfate (Ventolin Aerosols) 2.5 mg INHALATION Q2H PRN PRN PRN Reason: SOB/WHEEZING Amlodipine Besylate (Norvasc) 5 mg PO DAILY [facility] Last Admin: 07/30/18 10:16 Dose: Not Given Aspirin (Ecotrin) 81 mg PO DAILY@0800 [facility] Last Admin: 07/30/18 10:15 Dose: Not Given Chlorhexidine Gluconate () 1 each TOPICAL DAILY [facility] Last Admin: 07/30/18 04:06 Dose: 1 each Citalopram Hydrobromide (Celexa) 10 mg PO DAILY [facility] Last Admin: 07/30/18 10:15 Dose: Not Given Dextrose (D50w Syringe) 0 gm IV X1 PRN; Protocol PRN Reason: Hypoglycemia Enoxaparin Sodium (Lovenox) 40 mg SC DAILY@1000 BENNIE Last Admin: 07/30/18 10:16 Dose: 40 mg Famotidine (Pepcid) 20 mg PO BID [facility] Last Admin: 07/30/18 21:27 Dose: 20 mg Furosemide (Lasix) 20 mg PO DAILY [facility] Last Admin: 07/30/18 10:15 Dose: Not Given Glucagon () 1 mg IM .X1 PRN PRN Reason: Hypoglycemia Heparin Sodium (Beef Lung) () 50 units IV UD PRN PRN Reason: HEPARIN FLUSH Hydralazine HCl (Apresoline Iv) 10 mg IV Q4H PRN PRN PRN Reason: Sbp Greater Than 150 Last Admin: 07/30/18 20:11 Dose: 10 mg Hydromorphone HCl (Dilaudid Inj) 1 mg IV Q3H PRN PRN PRN Reason: SEVERE PAIN (6-1010) Last Admin: 07/31/18 01:30 Dose: 1 mg Sodium Chloride () 250 mls @ 15 mls/hr IV .[id number] PRN PRN Reason: SALINE FLUSH Sodium Chloride () 250 mls @ 15 mls/hr IV .[id number] PRN PRN Reason: SALINE FLUSH Enteral Nutritional Formula (Vital Af 1.2 Damien Liquid) 1,000 mls @ 20 mls/hr GT .Q48H [facility] Last Admin: 07/30/18 18:55 Dose: 20 mls/hr Dextrose () 1,000 mls @ 60 mls/hr IV .[id number] [facility] Stop: 07/31/18 21:39 Last Admin: 07/31/18 05:17 Dose: 60 mls/hr Insulin Human Lispro (Humalog Kwikpen (Bkc)) 0 unit SQ Q4 [facility]; Protocol Last Admin: 07/31/18 05:18 Dose: 2 u Labetalol HCl (Trandate) 20 mg IV Q4H PRN PRN PRN Reason: Sbp Greater Than 150 Last Admin: 07/30/18 08:12 Dose: 20 mg Lisinopril (Zestril) 10 mg PO DAILY [facility] Last Admin: 06/14/19 10:16 Dose: Not Given Metoprolol Tartrate (Lopressor (Beta Maddy)) 5 mg IV Q6H PRN PRN PRN Reason: hr above 120 Last Admin: 07/31/18 05:17 Dose: 5 mg Ondansetron HCl (Zofran) 4 mg IV Q6H PRN PRN PRN Reason: Nausea Last Admin: 07/28/18 08:50 Dose: 4 mg Sodium Chloride () 5 - 15 ml IV UD PRN PRN Reason: SALINE FLUSH Last Admin: 07/31/18 05:17 Dose: 10 ml Sodium Chloride () 10 ml IV UD PRN PRN Reason: VAD FLUSH Medical Necessity - Tobacco Use Smoking Status: Never smoker Assessment/Plan All Active Problems (Last Updated 12/21/17 @ 08:49 by Diane Hopkins) Opioid withdrawal (Acute) Altered mental status (Acute) Encephalopathy (Acute) Acute metabolic encephalopathy (Acute) NSTEMI (non-ST elevated myocardial infarction) (Acute) 1. AMS secondary to toxic versus metabolic encephalopathy/iatrogenic respiratory failure was present on admission -As described in the HPI, she has been on chronic narcotics for very long time and apparently ran out of her fentanyl patch and OxyContin 2 or 3 days prior, however now per report from the daughter she went home and counted the pills and it looks like she took more than her allotted dosing would allow. -She was given a dose of Narcan in the ER to no avail and she is currently intubated and sedated -She had a CT scan at the outside facility of her head which showed potentially new lytic lesions in her skull -She has been extubated though she is nonverbal now and difficult to reorient and does not follow commands -Baker is in place -Pepcid IV twice daily -Continue with Dilaudid 1 mg IV every 3 hours as needed -I believe initially her encephalopathy was toxic secondary to narcotic use, Restoril use, Ativan use. However now it potentially metabolic. Will discontinue her IV fluids as her sodium continues to climb and continue with chest tube feeds and free water flushes per the NG 2. Multiple myeloma/chronic anemia/hypocalcemia -Per the daughter, she completed chemotherapy and was supposed to follow-up with [facility] with these new lytic lesions in her skull for a new chemo and possible radiation. -Hemoglobin is stable -Appreciate oncology input 3. Nonobstructive coronary artery disease/history of left heart cath/left bundle branch block/HTN -Left bundle branch block does not appear to be new, therefore will not consult cardiology -She had a cardiac cath in 2018 with an EF of 45% and moderate left ventricular systolic dysfunction -No history of heart failure, continue with Lasix 20 mg daily -Continue her home medications once verified 4. Depression/anxiety/dementia -Unsure as to how extensive her dementia is and whether or not it is progressive -We will continue her Celexa DVT: Lovenox and SCDs Code Visit Inpatient E&M: 99743 Subs Hosp L2
--- NOTE | 2018-07-31 09:35 | PN_ITS ---
Patient Problems: Active and Suspected Problems (Last Updated 12/21/17 @ 08:49 by Diane Hopkins) Opioid withdrawal (Acute) Altered mental status (Acute) Encephalopathy (Acute) Subjective: Remains nonverbal and minimally responsive. She continues to have climbing leukocytosis and she had a fever. C. difficile testing was negative as was sputum testing. Blood cultures are pending Vitals/I&O's: Vital Signs Temp Pulse Resp BP Pulse Ox 99.7 F H 111 H 42 H 154/82 H 94 07/31/18 07:02 07/31/18 07:26 07/31/18 07:02 07/31/18 07:02 07/31/18 07:05 Oxygen Flow Rate (L/min) 3 Oxygen Delivery Method Nasal Cannula Weight: 143 lb 1.28 oz Body Mass Index (BMI) 25.2 Intake and Output for Last 24 Hours 07/29/18 07/30/18 07/31/18 23:59 23:59 23:59 Intake Total 564 / 564 2512 / 2512 369 / 369 Output Total 250 / 250 Balance 314 / 314 2512 / 2512 369 / 369 General: confused and disoriented and does not follow commands, nonverbal HEENT: Atraumatic, PERRLA, Normocephalic Oral: Dry Mucosa Neck: Supple, No JVD Lungs: Normal air movement, No wheeze, No rales, coarse breath sounds bilaterally Cardiovascular: Regular rate, regular Rhythm, Normal S1, Normal S2, No murmurs Abdomen: Soft, Non-Distended, No Hepato-splenomegaly Extremities: No edema, Capillary Refill Less than 3 Seconds Skin: No rashes, No breakdown Neurological: She is moving all extremities freely Psych/Mental Status: - - Unable to obtain Microbiology Past 72 Hours 07/28/18 05:50 Stool C. difficile DNA Amplification - Final Laboratory Results 07/30/18 14:03: Specimen Type ART, Sample Site L Radial, pH 7.48 H, Bicarbonate Actual 23.5, POC Total CO2 24, Base Excess 0, O2 Saturation 98, ABG pCO2 31.8 L, ABG pO2 97, Jonny Test POS, O2 Delivery Device Nasal Can, Liter Flow 4.0, Blood Gas Notified Whom ICU , Blood Gas Notified Time 1402 07/30/18 19:21: POC Glucose 175 H 07/30/18 21:23: POC Glucose 162 H 07/31/18 01:26: POC Glucose 175 H 07/31/18 02:46: WBC 16.5 H, RBC 4.65, Hgb 12.0, Hct 39.8, MCV 85.6, MCH 25.8 L, MCHC 30.2 L, RDW 17.4 H, RDW Differential 53.1 H, Plt Count 451 H, MPV 9.5, Immature Gran % (Auto) 0.300, Neut % (Auto) 89.2 H, Lymph % (Auto) 9.3 L, [place] % (Auto) 1.1, Eos % (Auto) 0.0, Baso % (Auto) 0.1, Absolute Neuts (auto) 14.8 H, Absolute Lymphs (auto) 1.54, Total Counted Not Reportable 07/31/18 02:46: Sodium 158 H, Potassium 3.9, Chloride 126 H, Carbon Dioxide 25.0, Anion Gap 7, BUN 44 H, Creatinine 0.88, Estim Creat Clear Calc 50.47, Est GFR (MDRD) Af Amer 81, Est GFR (MDRD) Non-Af 67, BUN/Creatinine Ratio 50.1 H, Glucose 176 H, Calcium 8.5, Phosphorus 3.0, Magnesium 3.1 H 07/31/18 02:46: Lactic Acid 1.2 07/31/18 05:16: POC Glucose 163 H Current Medications Acetaminophen (Tylenol Liquid) 650 mg GT Q6H PRN PRN PRN Reason: fever > 100.7 Acyclovir (Zovirax) 400 mg PO BID [facility] Last Admin: 07/30/18 21:27 Dose: 400 mg Albuterol Sulfate (Ventolin Aerosols) 2.5 mg INHALATION Q2H PRN PRN PRN Reason: SOB/WHEEZING Amlodipine Besylate (Norvasc) 5 mg PO DAILY [facility] Last Admin: 07/30/18 10:16 Dose: Not Given Aspirin (Ecotrin) 81 mg PO DAILY@0800 [facility] Last Admin: 07/30/18 10:15 Dose: Not Given Chlorhexidine Gluconate () 1 each TOPICAL DAILY [facility] Last Admin: 07/30/18 04:06 Dose: 1 each Citalopram Hydrobromide (Celexa) 10 mg PO DAILY [facility] Last Admin: 07/30/18 10:15 Dose: Not Given Dextrose (D50w Syringe) 0 gm IV X1 PRN; Protocol PRN Reason: Hypoglycemia Enoxaparin Sodium (Lovenox) 40 mg SC DAILY@1000 [facility] Last Admin: 07/30/18 10:16 Dose: 40 mg Famotidine (Pepcid) 20 mg PO BID [facility] Last Admin: 07/30/18 21:27 Dose: 20 mg Furosemide (Lasix) 20 mg PO DAILY [facility] Last Admin: 07/30/18 10:15 Dose: Not Given Glucagon () 1 mg IM .X1 PRN PRN Reason: Hypoglycemia Heparin Sodium (Beef Lung) () 50 units IV UD PRN PRN Reason: HEPARIN FLUSH Hydralazine HCl (Apresoline Iv) 10 mg IV Q4H PRN PRN PRN Reason: Sbp Greater Than 150 Last Admin: 07/30/18 20:11 Dose: 10 mg Hydromorphone HCl (Dilaudid Inj) 1 mg IV Q3H PRN PRN PRN Reason: SEVERE PAIN (6-1010) Last Admin: 07/31/18 01:30 Dose: 1 mg Sodium Chloride () 250 mls @ 15 mls/hr IV .[id number] PRN PRN Reason: SALINE FLUSH Sodium Chloride () 250 mls @ 15 mls/hr IV .[id number] PRN PRN Reason: SALINE FLUSH Enteral Nutritional Formula (Vital Af 1.2 Damien Liquid) 1,000 mls @ 20 mls/hr GT .Q48H [facility] Last Admin: 07/30/18 18:55 Dose: 20 mls/hr Dextrose () 1,000 mls @ 60 mls/hr IV .[id number] [facility] Stop: 07/31/18 21:39 Last Admin: 07/31/18 05:17 Dose: 60 mls/hr Insulin Human Lispro (Humalog Kwikpen (Bkc)) 0 unit SQ Q4 [facility]; Protocol Last Admin: 07/31/18 05:18 Dose: 2 u Labetalol HCl (Trandate) 20 mg IV Q4H PRN PRN PRN Reason: Sbp Greater Than 150 Last Admin: 07/30/18 08:12 Dose: 20 mg Lisinopril (Zestril) 10 mg PO DAILY [facility] Last Admin: 06/14/19 10:16 Dose: Not Given Metoprolol Tartrate (Lopressor (Beta Maddy)) 5 mg IV Q6H PRN PRN PRN Reason: hr above 120 Last Admin: 07/31/18 05:17 Dose: 5 mg Ondansetron HCl (Zofran) 4 mg IV Q6H PRN PRN PRN Reason: Nausea Last Admin: 07/28/18 08:50 Dose: 4 mg Sodium Chloride () 5 - 15 ml IV UD PRN PRN Reason: SALINE FLUSH Last Admin: 07/31/18 05:17 Dose: 10 ml Sodium Chloride () 10 ml IV UD PRN PRN Reason: VAD FLUSH Medical Necessity - Tobacco Use Smoking Status: Never smoker Assessment/Plan All Active Problems (Last Updated 12/21/17 @ 08:49 by Diane Hopkins) Opioid withdrawal (Acute) Altered mental status (Acute) Encephalopathy (Acute) Acute metabolic encephalopathy (Acute) NSTEMI (non-ST elevated myocardial infarction) (Acute) 1. AMS secondary to toxic versus metabolic encephalopathy/iatrogenic respiratory failure was present on admission -As described in the HPI, she has been on chronic narcotics for very long time and apparently ran out of her fentanyl patch and OxyContin 2 or 3 days prior, however now per report from the daughter she went home and counted the pills and it looks like she took more than her allotted dosing would allow. -She was given a dose of Narcan in the ER to no avail and she is currently intubated and sedated -She had a CT scan at the outside facility of her head which showed potentially new lytic lesions in her skull -She has been extubated though she is nonverbal now and difficult to reorient and does not follow commands -Baker is in place -Pepcid IV twice daily -Continue with Dilaudid 1 mg IV every 3 hours as needed -I believe initially her encephalopathy was toxic secondary to narcotic use, Restoril use, Ativan use. However now it potentially metabolic. Will discontinue her IV fluids as her sodium continues to climb and continue with chest tube feeds and free water flushes per the NG 2. Multiple myeloma/chronic anemia/hypocalcemia -Per the daughter, she completed chemotherapy and was supposed to follow-up with [facility] with these new lytic lesions in her skull for a new chemo and possible radiation. -Hemoglobin is stable -Appreciate oncology input 3. Nonobstructive coronary artery disease/history of left heart cath/left bundle branch block/HTN -Left bundle branch block does not appear to be new, therefore will not consult cardiology -She had a cardiac cath in 2018 with an EF of 45% and moderate left ventricular systolic dysfunction -No history of heart failure, continue with Lasix 20 mg daily -Continue her home medications once verified 4. Depression/anxiety/dementia -Unsure as to how extensive her dementia is and whether or not it is progressive -We will continue her Celexa DVT: Lovenox and SCDs Code Visit Inpatient E&M: 59533 Subs Hosp L2
[2018-07-31] MEDS: Enoxaparin 40 MG/0.4 ML Syringe SC (09:48)
[2018-07-31] MEDS: Lisinopril 10 MG Tablet PO (09:48)
[2018-07-31] MEDS: Furosemide 20 MG Tablet PO (09:49)
[2018-07-31] MEDS: Acyclovir 200 MG Capsule 400 MG PO ×2 (09:49→21:31)
[2018-07-31] MEDS: Famotidine 20 MG Tablet PO ×2 (09:49→21:31)
[2018-07-31] MEDS: amLODIPine 5 MG Tablet PO (09:49)
[2018-07-31] MEDS: Citalopram 10 MG Tablet PO (09:49)
[2018-07-31 10:06] LABS: Bedside Glucose 197 mg/dL (70-110)
[2018-07-31 13:36] LABS: Bedside Glucose 205 mg/dL (70-110)
[2018-07-31 16:56] LABS: Bedside Glucose 164 mg/dL (70-110)
[2018-07-31] MEDS: Vital AF 1.2 Cal Liquid 1,000 ML 20 ML GT (20:21)
--- NOTE | 2018-07-31 20:35 | NURSING ---
spoke to pharmacy okay to give lopressor IV, says doctor okay it. okay to open capsule of acyclovir
[2018-07-31 21:21] LABS: Bedside Glucose 155 mg/dL (70-110)
[2018-08-01] VITALS (16 sets, daily range): BP systolic 96–119; BP diastolic 52–68; PULSE 91–128; RESP 16–58; TEMP 36.4–38.3; O2SAT 88–96
[2018-08-01] MEDS: Morphine 2 MG/ML Syringe 1 MG IV (01:13)
[2018-08-01] MEDS: 0.9% NaCl Peripheral Flush Adult/Peds IV ×5 (01:14→11:54)
[2018-08-01] MEDS: Insulin Lispro 100 UNIT/ML INSULN.PEN SQ ×2 (01:21→05:38)
--- NOTE | 2018-08-01 02:00 | CPS ---
changed O2 delivery to a high flow nasal cannula at 10 lpm
[2018-08-01 02:16] LABS: Bedside Glucose 163 mg/dL (70-110)
[2018-08-01] MEDS: Acetaminophen 650 MG/20 ML UDC GT (03:52)
[2018-08-01] MEDS: HYDROmorphone 1 MG/ML Syringe IV ×3 (05:28→11:54)
[2018-08-01 05:49] LABS: Absolute Lymphocyte Count 0.77 X10^3/ul (0.83-4.51); Absolute Neutrophil Count 11.5 X10^3/uL (2.0-7.7); Basophil# 0.01 X10^3/uL; Basophil% 0.1 % (0-1); Hematocrit 40.6 % (37-47); Hemoglobin 11.8 g/dl (12.0-15.0); Lymphocyte # 0.77 X10^3/ul (4.0); Lymphocyte % 5.6 % (19-41); Mean Corp Hgb Conc 29.1 g/gl (32-36); Mean Corpuscular Hgb 25.2 pg (27.0-32.0); Mean Corpuscular Volume 86.8 fL (81-99); Mean Platelet Vol. 10.4 fl (6.2-12.0); Monocyte# 1.33 X10^3/uL; Monocyte% 9.8 % (0-10); Neutrophil % 84.3 % (47-70); Platelet Count 351 K/mm3 (150-450); RBC Distribution Width CV 18.4 % (11.6-14.6); RBC Distribution Width SD 55.7 fl (35.1-43.9); Red Blood Count 4.68 M/mm3 (4.2-5.4); White Blood Count 13.6 K/mm3 (4.4-11.0)
[2018-08-01 05:51] LABS: Bedside Glucose 182 mg/dL (70-110)
[2018-08-01 06:07] LABS: POSITIVE COUNT NO; POSITIVE DIFFERENTIAL NO; POSITIVE MORPHOLOGY YES
[2018-08-01 06:11] LABS: ALB/GLOB Ratio 0.8 RATIO (0.9-2.4); AST(SGOT) 46 U/L (15-37); Alanine Aminotransfer ALT/SGPT 67 U/L (13-56); Albumin, Serum 2.7 g/dL (3.2-5.0); Alkaline Phosphatase 84 U/L (45-117); Anion Gap 12 (5-15); BUN 86 mg/dL (7-18); BUN/Creat Ratio 51.5 RATIO (10-20); Calcium,Total 8.2 mg/dL (8.5-10.1); Chloride 131 mmol/L (98-107); Creatinine, Serum 1.67 mg/dL (0.55-1.02); EST Glomerular Filtration Rate 32 mL/min (>60); Est Glom Filt Rate - Afr Amer 39 mL/min (>60); Estimated Creatinine Clearance 26.59 ml/min; Globulin 3.4 g/dL (2.2-4.2); Glucose 189 mg/dL (74-106); Potassium 3.2 mmol/L (3.5-5.1); Protein, Total 6.1 g/dL (6.4-8.2); Sodium Level 164 mmol/L (136-145)
--- NOTE | 2018-08-01 06:30 | NURSING ---
RN CALLED DAUGHTER MIKALA TO UPDATE ABOUT PATIENT'S CONDITION AND VITAL SIGNS. DAUGHTER STATED THAT HER AND FAMILY WILL BE IN AROUND 9AM, SHE SPOKE TO HER FATHER LAST NIGHT AND THEY ARE AGREEING ON HOSPICE AT THIS TIME.
[2018-08-01 06:37] LABS: Differential Indicated SCAN CRITERIA MET
--- NOTE | 2018-08-01 06:48 | PN_ITS ---
Patient Problems: Active and Suspected Problems (Last Updated 12/21/17 @ 08:49 by Diane Hopkins) Opioid withdrawal (Acute) Altered mental status (Acute) Encephalopathy (Acute) Subjective: Still nonverbal and does not open her eyes, overnight there is been concerns about her worsening tachypnea and tachycardia. Vitals/I&O's: Vital Signs Temp Pulse Resp BP Pulse Ox 99.3 F H 127 H 50 H 112/62 92 08/01/18 06:00 08/01/18 06:00 08/01/18 06:00 08/01/18 06:00 08/01/18 06:00 Oxygen Flow Rate (L/min) 12 Oxygen Delivery Method Nasal Cannula Weight: 141 lb 5.061 oz Body Mass Index (BMI) 25.2 Intake and Output for Last 24 Hours 07/30/18 07/31/18 08/01/18 23:59 23:59 23:59 Intake Total 2512 / 2512 1343 / 1343 780 / 780 Balance 2512 / 2512 1343 / 1343 780 / 780 General: Nonverbal, not alert, guppy breathing HEENT: Atraumatic, PERRLA, Normocephalic Oral: Dry Mucosa Neck: Supple, No JVD Lungs: Normal air movement, No wheeze, No rales, coarse breath sounds bilaterally Cardiovascular: Regular rate, regular Rhythm, Normal S1, Normal S2, No murmurs Abdomen: Soft, Non-Distended, No Hepato-splenomegaly Extremities: No edema, Capillary Refill Less than 3 Seconds Skin: No rashes, No breakdown Neurological: She is moving all extremities freely Psych/Mental Status: - - Unable to obtain Laboratory Results 07/31/18 09:47: POC Glucose 197 H 07/31/18 13:25: POC Glucose 205 H 07/31/18 16:49: POC Glucose 164 H 07/31/18 21:18: POC Glucose 155 H 08/01/18 01:21: POC Glucose 163 H 08/01/18 05:30: WBC 13.6 H, RBC 4.68, Hgb 11.8 L, Hct 40.6, MCV 86.8, MCH 25.2 L , MCHC 29.1 L, RDW 18.4 H, RDW Differential 55.7 H, Plt Count 351, MPV 10.4, Immature Gran % (Auto) 0.200, Neut % (Auto) 84.3 H, Lymph % (Auto) 5.6 L, [place] % (Auto) 9.8, Eos % (Auto) 0.0, Baso % (Auto) 0.1, Absolute Neuts (auto) 11.5 H, Absolute Lymphs (auto) 0.77 L, Total Counted Pending 08/01/18 05:30: Sodium 164 H*, Potassium 3.2 L, Chloride 131 H*, Carbon Dioxide 21.0, Anion Gap 12, BUN 86 H, Creatinine 1.67 H, Estim Creat Clear Calc 26.59, Est GFR (MDRD) Af Amer 39 L, Est GFR (MDRD) Non-Af 32 L, BUN/Creatinine Ratio 51.5 H, Glucose 189 H, Calcium 8.2 L, Total Bilirubin 0.70, AST 46 H, ALT 67 H, Alkaline Phosphatase 84, Total Protein 6.1 L, Albumin 2.7 L, Globulin 3.4, Albumin/Globulin Ratio 0.8 L 08/01/18 05:38: POC Glucose 182 H Current Medications Acetaminophen (Tylenol Liquid) 650 mg GT Q6H PRN PRN PRN Reason: fever > 100.7 Last Admin: 08/01/18 03:52 Dose: 650 mg Acyclovir (Zovirax) 400 mg PO BID [facility] Last Admin: 07/31/18 21:31 Dose: 400 mg Albuterol Sulfate (Ventolin Aerosols) 2.5 mg INHALATION Q2H PRN PRN PRN Reason: SOB/WHEEZING Amlodipine Besylate (Norvasc) 5 mg PO DAILY [facility] Last Admin: 07/31/18 09:49 Dose: 5 mg Aspirin (Ecotrin) 81 mg PO DAILY@0800 [facility] Last Admin: 07/31/18 11:51 Dose: Not Given Citalopram Hydrobromide (Celexa) 10 mg PO DAILY [facility] Last Admin: 07/31/18 09:49 Dose: 10 mg Dextrose (D50w Syringe) 0 gm IV X1 PRN; Protocol PRN Reason: Hypoglycemia Enoxaparin Sodium (Lovenox) 40 mg SC DAILY@1000 [facility] Last Admin: 07/31/18 09:48 Dose: 40 mg Famotidine (Pepcid) 20 mg PO BID [facility] Last Admin: 07/31/18 21:31 Dose: 20 mg Furosemide (Lasix) 20 mg PO DAILY [facility] Last Admin: 07/31/18 09:49 Dose: 20 mg Glucagon () 1 mg IM .X1 PRN PRN Reason: Hypoglycemia Heparin Sodium (Beef Lung) () 50 units IV UD PRN PRN Reason: HEPARIN FLUSH Hydralazine HCl (Apresoline Iv) 10 mg IV Q4H PRN PRN PRN Reason: Sbp Greater Than 150 Last Admin: 07/30/18 20:11 Dose: 10 mg Hydromorphone HCl (Dilaudid Inj) 1 mg IV Q3H PRN [facility] Sodium Chloride () 250 mls @ 15 mls/hr IV .[id number] PRN PRN Reason: SALINE FLUSH Sodium Chloride () 250 mls @ 15 mls/hr IV .[id number] PRN PRN Reason: SALINE FLUSH Enteral Nutritional Formula (Vital Af 1.2 Damien Liquid) 1,000 mls @ 20 mls/hr GT .Q48H [facility] Last Admin: 07/31/18 20:21 Dose: 20 mls/hr Piperacillin Sod/Tazobactam (Sod 3.375 gm/ Sodium Chloride) 50 mls @ 12.5 mls/hr IV Q12 [facility] Last Admin: 08/01/18 06:11 Dose: 12.5 mls/hr Dextrose () 1,000 mls @ 100 mls/hr IV .Q10H [facility] Insulin Human Lispro (Humalog Kwikpen (Bkc)) 0 unit SQ Q4 [facility]; Protocol Last Admin: 08/01/18 05:38 Dose: 2 u Labetalol HCl (Trandate) 20 mg IV Q4H PRN PRN PRN Reason: Sbp Greater Than 150 Last Admin: 07/30/18 08:12 Dose: 20 mg Lisinopril (Zestril) 10 mg PO DAILY [facility] Last Admin: 07/31/18 09:48 Dose: 10 mg Metoprolol Tartrate (Lopressor (Beta Maddy)) 5 mg IV Q6H PRN PRN PRN Reason: hr above 120 Last Admin: 07/31/18 20:45 Dose: 5 mg Ondansetron HCl (Zofran) 4 mg IV Q6H PRN PRN PRN Reason: Nausea Last Admin: 07/28/18 08:50 Dose: 4 mg Sodium Chloride () 5 - 15 ml IV UD PRN PRN Reason: SALINE FLUSH Last Admin: 08/01/18 05:29 Dose: 15 ml Sodium Chloride () 10 ml IV UD PRN PRN Reason: VAD FLUSH Medical Necessity - Tobacco Use Smoking Status: Never smoker Assessment/Plan All Active Problems (Last Updated 12/21/17 @ 08:49 by Diane Hopkins) Opioid withdrawal (Acute) Altered mental status (Acute) Encephalopathy (Acute) Acute metabolic encephalopathy (Acute) NSTEMI (non-ST elevated myocardial infarction) (Acute) 1. AMS secondary to toxic versus metabolic encephalopathy/iatrogenic respiratory failure was present on admission/hypernatremia -As described in the HPI, she has been on chronic narcotics for very long time and apparently ran out of her fentanyl patch and OxyContin 2 or 3 days prior, however now per report from the daughter she went home and counted the pills and it looks like she took more than her allotted dosing would allow. -She was given a dose of Narcan in the ER to no avail and she is currently intubated and sedated -She had a CT scan at the outside facility of her head which showed potentially new lytic lesions in her skull -She has been extubated though she is nonverbal now and difficult to reorient and does not follow commands -Baker is in place -Pepcid IV twice daily -Continue with Dilaudid 1 mg IV every 3 hours, will discontinue it as a as needed as it seems that it does not get given as frequently as she probably needs it to -Will initiate BiPAP therapy for now until family decides on hospice, the initial plan was to proceed with hospice tomorrow which the daughter had already arranged about a week and a half ago, will hold her tube feeds -I believe initially her encephalopathy was toxic secondary to narcotic use, Restoril use, Ativan use. However now it potentially metabolic. We will start D5W for her sodium that continues to climb 2. Multiple myeloma/chronic anemia/hypocalcemia -Per the daughter, she completed chemotherapy and was supposed to follow-up with [facility] with these new lytic lesions in her skull for a new chemo and possible radiation. -Hemoglobin is stable -Appreciate oncology input 3. Nonobstructive coronary artery disease/history of left heart cath/left bundle branch block/HTN -Left bundle branch block does not appear to be new, therefore will not consult cardiology -She had a cardiac cath in 2018 with an EF of 45% and moderate left ventricular systolic dysfunction -No history of heart failure, continue with Lasix 20 mg daily -Continue her home medications once verified 4. Depression/anxiety/dementia -Unsure as to how extensive her dementia is and whether or not it is progressive -We will continue her Celexa DVT: Lovenox and SCDs Code Visit Inpatient E&M: 03138 Subs Hosp L2
--- NOTE | 2018-08-01 08:33 | PCM.PN.INT ---
Subjective: Patient has remained unresponsive overnight, but was noted to have significant respiratory issues this morning leading to placement of BiPAP. Patient's daughter had reported possible hospice measures. Family has been contacted. General: Lethargic, Non-Cooperative, - - Accessory muscle use noted. HEENT: Atraumatic, PERRLA, EOMI, Normocephalic, - - Scleral injection Oral: Moist Mucosa, No Gingival or Mucosal Lesions/ Ulcerations Neck: Supple, No JVD, No Nodes, Trachea Midline Lungs: No rhonchi, No wheeze, No rales, Diminished Cardiovascular: Normal S1, Normal S2, No murmurs, No rub noted, No Gallop, Tachycardic Abdomen: Bowel Sounds Present, Soft, Distended Extremities: No clubbing, Capillary Refill Less than 3 Seconds, Edema Skin: - - Significant change compared to previous Musculoskeletal: No Tenderness to Palpation of Joints or Extremities Lymphatic: No Cervical, Supraclavicular, or Inguinal Adenopathy Neurological: - - Unresponsive. Very little Spontaneous movement. Psych/Mental Status: Flat Affect Vital Signs Temp Pulse Resp BP Pulse Ox 36.6 C 125 H 30 H 103/58 L 91 08/01/18 08:00 08/01/18 08:00 08/01/18 08:00 08/01/18 08:00 08/01/18 08:00 Oxygen Flow Rate (L/min) 12 Oxygen Delivery Method Bi-pap Weight: 64.1 kg Body Mass Index (BMI) 25.2 Intake and Output for Last 24 Hours 07/30/18 07/31/18 08/01/18 23:59 23:59 23:59 Intake Total 2512 / 2512 1343 / 1343 780 / 780 Balance 2512 / 2512 1343 / 1343 780 / 780 Labs (Last 48 Hours) 07/30/18 07/30/18 07/30/18 14:03 19:21 21:23 WBC RBC Hgb Hct MCV MCH MCHC RDW RDW Differential Plt Count MPV Immature Gran % (Auto) Neut % (Auto) Lymph % (Auto) [place] % (Auto) Eos % (Auto) Baso % (Auto) Absolute Neuts (auto) Absolute Lymphs (auto) Total Counted Specimen Type ART Sample Site L Radial pH 7.48 H Bicarbonate Actual 23.5 POC Total CO2 24 Base Excess 0 O2 Saturation 98 ABG pCO2 31.8 L ABG pO2 97 Jonny Test POS O2 Delivery Device Nasal Can Liter Flow 4.0 Blood Gas Notified Whom ICU MD Blood Gas Notified Time 1402 Sodium Potassium Chloride Carbon Dioxide Anion Gap BUN Creatinine Estim Creat Clear Calc Est GFR (MDRD) Af Amer Est GFR (MDRD) Non-Af BUN/Creatinine Ratio Glucose Lactic Acid Calcium Phosphorus Magnesium Total Bilirubin AST ALT Alkaline Phosphatase Total Protein Albumin Globulin Albumin/Globulin Ratio POC Glucose 175 H 162 H 07/31/18 07/31/18 07/31/18 01:26 02:46 02:46 WBC 16.5 H RBC 4.65 Hgb 12.0 Hct 39.8 MCV 85.6 MCH 25.8 L MCHC 30.2 L RDW 17.4 H RDW Differential 53.1 H Plt Count 451 H MPV 9.5 Immature Gran % (Auto) 0.300 Neut % (Auto) 89.2 H Lymph % (Auto) 9.3 L [place] % (Auto) 1.1 Eos % (Auto) 0.0 Baso % (Auto) 0.1 Absolute Neuts (auto) 14.8 H Absolute Lymphs (auto) 1.54 Total Counted Not Reportable Specimen Type Sample Site pH Bicarbonate Actual POC Total CO2 Base Excess O2 Saturation ABG pCO2 ABG pO2 Jonny Test O2 Delivery Device Liter Flow Blood Gas Notified Whom Blood Gas Notified Time Sodium 158 H Potassium 3.9 Chloride 126 H Carbon Dioxide 25.0 Anion Gap 7 BUN 44 H Creatinine 0.88 Estim Creat Clear Calc 50.47 Est GFR (MDRD) Af Amer 81 Est GFR (MDRD) Non-Af 67 BUN/Creatinine Ratio 50.1 H Glucose 176 H Lactic Acid Calcium 8.5 Phosphorus 3.0 Magnesium 3.1 H Total Bilirubin AST ALT Alkaline Phosphatase Total Protein Albumin Globulin Albumin/Globulin Ratio POC Glucose 175 H 07/31/18 07/31/18 07/31/18 02:46 05:16 09:47 WBC RBC Hgb Hct MCV MCH MCHC RDW RDW Differential Plt Count MPV Immature Gran % (Auto) Neut % (Auto) Lymph % (Auto) [place] % (Auto) Eos % (Auto) Baso % (Auto) Absolute Neuts (auto) Absolute Lymphs (auto) Total Counted Specimen Type Sample Site pH Bicarbonate Actual POC Total CO2 Base Excess O2 Saturation ABG pCO2 ABG pO2 Jonny Test O2 Delivery Device Liter Flow Blood Gas Notified Whom Blood Gas Notified Time Sodium Potassium Chloride Carbon Dioxide Anion Gap BUN Creatinine Estim Creat Clear Calc Est GFR (MDRD) Af Amer Est GFR (MDRD) Non-Af BUN/Creatinine Ratio Glucose Lactic Acid 1.2 Calcium Phosphorus Magnesium Total Bilirubin AST ALT Alkaline Phosphatase Total Protein Albumin Globulin Albumin/Globulin Ratio POC Glucose 163 H 197 H 07/31/18 07/31/18 07/31/18 13:25 16:49 21:18 WBC RBC Hgb Hct MCV MCH MCHC RDW RDW Differential Plt Count MPV Immature Gran % (Auto) Neut % (Auto) Lymph % (Auto) [place] % (Auto) Eos % (Auto) Baso % (Auto) Absolute Neuts (auto) Absolute Lymphs (auto) Total Counted Specimen Type Sample Site pH Bicarbonate Actual POC Total CO2 Base Excess O2 Saturation ABG pCO2 ABG pO2 Jonny Test O2 Delivery Device Liter Flow Blood Gas Notified Whom Blood Gas Notified Time Sodium Potassium Chloride Carbon Dioxide Anion Gap BUN Creatinine Estim Creat Clear Calc Est GFR (MDRD) Af Amer Est GFR (MDRD) Non-Af BUN/Creatinine Ratio Glucose Lactic Acid Calcium Phosphorus Magnesium Total Bilirubin AST ALT Alkaline Phosphatase Total Protein Albumin Globulin Albumin/Globulin Ratio POC Glucose 205 H 164 H 155 H 08/01/18 08/01/18 08/01/18 01:21 05:30 05:30 WBC 13.6 H RBC 4.68 Hgb 11.8 L Hct 40.6 MCV 86.8 MCH 25.2 L MCHC 29.1 L RDW 18.4 H RDW Differential 55.7 H Plt Count 351 MPV 10.4 Immature Gran % (Auto) 0.200 Neut % (Auto) 84.3 H Lymph % (Auto) 5.6 L [place] % (Auto) 9.8 Eos % (Auto) 0.0 Baso % (Auto) 0.1 Absolute Neuts (auto) 11.5 H Absolute Lymphs (auto) 0.77 L Total Counted Pending Specimen Type Sample Site pH Bicarbonate Actual POC Total CO2 Base Excess O2 Saturation ABG pCO2 ABG pO2 Jonny Test O2 Delivery Device Liter Flow Blood Gas Notified Whom Blood Gas Notified Time Sodium 164 H* Potassium 3.2 L Chloride 131 H* Carbon Dioxide 21.0 Anion Gap 12 BUN 86 H Creatinine 1.67 H Estim Creat Clear Calc 26.59 Est GFR (MDRD) Af Amer 39 L Est GFR (MDRD) Non-Af 32 L BUN/Creatinine Ratio 51.5 H Glucose 189 H Lactic Acid Calcium 8.2 L Phosphorus Magnesium Total Bilirubin 0.70 AST 46 H ALT 67 H Alkaline Phosphatase 84 Total Protein 6.1 L Albumin 2.7 L Globulin 3.4 Albumin/Globulin Ratio 0.8 L POC Glucose 163 H 08/01/18 05:38 WBC RBC Hgb Hct MCV MCH MCHC RDW RDW Differential Plt Count MPV Immature Gran % (Auto) Neut % (Auto) Lymph % (Auto) [place] % (Auto) Eos % (Auto) Baso % (Auto) Absolute Neuts (auto) Absolute Lymphs (auto) Total Counted Specimen Type Sample Site pH Bicarbonate Actual POC Total CO2 Base Excess O2 Saturation ABG pCO2 ABG pO2 Jonny Test O2 Delivery Device Liter Flow Blood Gas Notified Whom Blood Gas Notified Time Sodium Potassium Chloride Carbon Dioxide Anion Gap BUN Creatinine Estim Creat Clear Calc Est GFR (MDRD) Af Amer Est GFR (MDRD) Non-Af BUN/Creatinine Ratio Glucose Lactic Acid Calcium Phosphorus Magnesium Total Bilirubin AST ALT Alkaline Phosphatase Total Protein Albumin Globulin Albumin/Globulin Ratio POC Glucose 182 H Medical Necessity - Tobacco Use Smoking Status: Never smoker Assessment/Plan All Active Problems (Last Updated 12/21/17 @ 08:49 by Diane Hopkins) Opioid withdrawal (Acute) Altered mental status (Acute) Encephalopathy (Acute) Acute metabolic encephalopathy (Acute) NSTEMI (non-ST elevated myocardial infarction) (Acute) RECOMMENDATIONS: 1. Hold tube feeds 2. Wean FiO2 to maintain oxygen saturations at or above 90%. 3. Initiation of D5W 4. Potential transfer to intensive care unit pending CODE STATUS discussion 5. Delirium protocol IMPRESSIONS: 1. Acute respiratory failure Patient with severe depression of mental status at this time. This may be secondary to hypernatremia and hyperchloremia with increased metabolic acidosis. Patient does not appear to have significant wheezing on exam. Patient is on BiPAP therapy right now, but will hold off on ABG pending CODE STATUS discussion with the daughter. 2. Encephalopathy Patient is currently unresponsive. Patient does have significant elevation in sodium and chloride over the last 24 hours. This may account for decreased mental status. Patient also spiked a fever overnight. Do not believe patient is in diabetes insipidus, but this would be a consideration. D5W should be initiated. 3. Personal history of multiple myeloma The patient is currently followed by Dr. Ybarra at [facility]. Consultation may need to be placed to them once patient more stable in light of the lytic lesions noted on CT head. Awaiting oncology evaluation for prognostication and treatment options. 4. Hypertensive urgency Improved. Somewhat limited secondary to p.o./NG status. On Norvasc. Blood pressure has dropped with elevation in temperature. Antibiotics have been initiated. 5. Depression/anxiety/dementia Complicates care, management, recovery and prognosis. Recommend physical therapy evaluation once medically stabilized. Patient has not been appropriate enough to have a bedside swallow evaluation to this point. Code Visit Inpatient E&M: 69205 Subs Hosp L3
--- NOTE | 2018-08-01 10:15 | CPS ---
FIO2 Decreased to 50%.....93%. Nurse aware of change
--- NOTE | 2018-08-01 14:13 | DS.PCM_ITS ---
Discharge Date and Diagnosis Date of Admission: 07/24/18 Date of Discharge: 08/01/18 - Secondary Discharge Diagnosis Chronic Problems (Last Updated 12/21/17 @ 08:49 by Diane Hopkins) Multiple myeloma in relapse (Chronic) Cardiomyopathy in disease classified elsewhere (Chronic) History of left heart catheterization (Chronic 12/16/17) Moderate Global hypokinesis, EF 45%. Less than 30% mild luminal irregularities in Mid RCA, all other coronaries normal. Anemia (Chronic) Dementia (Chronic) Peripheral neuropathy (Chronic) Depression (Chronic) Hypertension (Chronic) Multiple myeloma (Chronic) Status post hip surgery (Chronic) Debility (Chronic) Hospital Course and Treatment Imaging Results: CXR: IMPRESSION: 1. Endotracheal tube with tip 4 cm from the mimi. 2. Gastric drainage tube with side-port at the gastroesophageal junction, consider advancement. 3. Right lower lung opacity, possibly atelectasis versus early developing pneumonia. MRI Brain: IMPRESSION: Involutional changes of the brain, as described above. No acute infarct. Consults: ICU Oncology Hospice Operations: None Procedures: None Summary of Care Provided: Per HPI: The patient is a 73 year old F with a PMH as below who presents to outside hospital with altered mental status. Patient is currently intubated and sedated and there is no family at bedside and I cannot get a hold of anyone on the phone. Per report from the ED physician at the outside hospital, Mrs. Tasneem bergman has a history of chronic opiate use. It started in her 30s when she was having migraines and was given narcotics by her primary care doctor. She then developed multiple myeloma has been seeing [facility] oncology in [place], and because of any bone mets she has been continued on pain medication. Of note she had a CT scan today which demonstrated new lytic lesions in the calvarium which represent metastasis. Most recently her developed prostate cancer and was given doses of narcotics to help manage his pain, and it was discovered by the family that she was stealing his pain meds and so now they are all locked up. Apparently per report the family was unaware of her previous narcotic use because her was hiding it from the rest of the family. Also it appears that she ran out of her fentanyl patch and her other narcotics 2 or 3 days ago. At the outside hospital she was extremely agitated, she was given a dose of Narcan which made her symptoms of withdrawal worse. She was given Ativan which was unsuccessful and calming her down, she was then given an for 5 doses of 50 mcg of fentanyl, which also did not improve her symptoms. Because of her agitation and the amount of medication that she had been given, she was sedated and intubated. Per report, she continued to bite on the tube despite being on 80 of propofol, and therefore she was given a dose of vecuronium. Also there is some concern at the outside hospital but a new left bundle branch block based on prior EKGs that she had had at that facility. However, on review of our medical records, it appears that she had an EKG on December 05, 2016 with a left bundle branch block at that time. She had a troponin at the outside hospital which was normal and they called 1 of our scale clerk who did not feel that it was anything urgent since the troponin was negative. Hospital Course: 1. AMS secondary to toxic versus metabolic encephalopathy/iatrogenic respiratory failure was present on admission/[id number] female with a history of multiple myeloma with new lytic lesions after chemotherapy. Appears to have taken more of her narcotics and she normally does and then ran out of her narcotics. She presented to an outside hospital where she was going through withdrawal and then was given Narcan. After the Narcan dose was given she became more agitated and therefore was given 250 mcg of fentanyl as well as Ativan. Because of that and to protect her airway she was intubated and sedated. She was still agitated and therefore was given vecuronium. She was transferred to this hospital and she was restarted on a fentanyl drip. This allowed her to be weaned from the propofol and ultimately transferred out of the ICU. Unfortunately from a mental status standpoint she never truly recovered. She was not alert and was nonverbal and would not follow any commands. We did an MRI of the brain which did not show any intracranial pathology. Extensive discussions were had with the family about prognosis and further work-up. It was suggested that a possible lumbar puncture could be performed to further clarify why she had altered mental status, however family decided that they would rather proceed with hospice as they were going to transition her to hospice on Thursday. Overnight on the night of discharge she was becoming more tachypneic and more tachycardic. This was likely secondary to a lack of narcotics being given. She was initiated on BiPAP in the morning and tube feeds were stopped, this was to allow family time to get here. Once family arrived the patient was guppy breathing and if they agree to proceed with hospice. Hospice came in and remove the BiPAP and increase the Dilaudid dosing to see if she would tolerate transport. She did and therefore was transferred to the inpatient hospice facility. 2. Multiple myeloma/chronic anemia/hypocalcemia -Per the daughter, she completed chemotherapy and was supposed to follow-up with [facility] with these new lytic lesions in her skull for a new chemo and possible radiation. -Hemoglobin is stable -Appreciate oncology input 3. Nonobstructive coronary artery disease/history of left heart cath/left bundle branch block/HTN -Left bundle branch block does not appear to be new, therefore will not consult cardiology -She had a cardiac cath in 2018 with an EF of 45% and moderate left ventricular systolic dysfunction -No history of heart failure, continue with Lasix 20 mg daily -Continue her home medications once verified 4. Depression/anxiety/dementia -Unsure as to how extensive her dementia is and whether or not it is progressive -We will continue her Celexa DVT: Lovenox and SCDs - Physical Exam Vital Signs Temp Pulse Resp BP Pulse Ox 98 F 109 H 49 H 98/54 L 95 08/01/18 09:00 08/01/18 11:00 08/01/18 11:00 08/01/18 11:00 08/01/18 11:00 Oxygen Flow Rate (L/min) 12 Oxygen Delivery Method Bi-pap Weight: 141 lb 5.061 oz Body Mass Index (BMI) 25.2 Intake and Output for Last 24 Hours 07/30/18 07/31/18 08/01/18 23:59 23:59 23:59 Intake Total 2512 / 2512 1343 / 1343 780 / 780 Balance 2512 / 2512 1343 / 1343 780 / 780 Laboratory Tests Past 24 Hrs 08/01/18 08/01/18 05:30 05:30 WBC 13.6 H RBC 4.68 Hgb 11.8 L Hct 40.6 MCV 86.8 MCH 25.2 L MCHC 29.1 L RDW 18.4 H RDW Differential 55.7 H Plt Count 351 MPV 10.4 Immature Gran % (Auto) 0.200 Neut % (Auto) 84.3 H Lymph % (Auto) 5.6 L [place] % (Auto) 9.8 Eos % (Auto) 0.0 Baso % (Auto) 0.1 Absolute Neuts (auto) 11.5 H Absolute Lymphs (auto) 0.77 L Total Counted Pending Sodium 164 H* Potassium 3.2 L Chloride 131 H* Carbon Dioxide 21.0 Anion Gap 12 BUN 86 H Creatinine 1.67 H Estim Creat Clear Calc 26.59 Est GFR (MDRD) Af Amer 39 L Est GFR (MDRD) Non-Af 32 L BUN/Creatinine Ratio 51.5 H Glucose 189 H Calcium 8.2 L Total Bilirubin 0.70 AST 46 H ALT 67 H Alkaline Phosphatase 84 Total Protein 6.1 L Albumin 2.7 L Globulin 3.4 Albumin/Globulin Ratio 0.8 L POC Glucose 08/01/18 08/01/18 07/31/18 05:38 01:21 21:18 POC Glucose 182 H 163 H 155 H 07/31/18 16:49 POC Glucose 164 H Home Medications: Medications to take at Discharge Albuterol Inhaler [Ventolin Hfa] 1 puff INHALATION Q4H PRN PRN 10/17/15 Aspirin E.C. [Ecotrin] 81 mg PO DAILY@0800 10/17/15 Calcium Citrate/Vitamin D3 [Calcium Citrate - Vit D Tablet] 1,000 unit PO DAILY 10/17/15 Citalopram [Celexa] 10 mg PO DAILY 10/17/15 Gabapentin [Neurontin] 400 mg PO TIDCM 10/17/15 Guaifenesin [Mucinex] 600 mg PO DAILY 10/17/15 Multivitamin [Daily Multiple Vitamin] 1 each PO DAILY 10/17/15 Omeprazole [Prilosec] 20 mg PO BID 10/17/15 Amlodipine [Norvasc] 5 mg PO DAILY 12/03/16 Dexamethasone 12 mg PO QWEEK 12/03/16 Lisinopril [Zestril] 10 mg PO DAILY 12/03/16 Lutein 20 mg PO DAILY 12/03/16 Oxycodone [Oxyir] 5 mg PO Q6H PRN PRN #12 tablet 12/06/16 Acetaminophen [Tylenol Extra Strength] 500 mg PO Q8H PRN PRN 12/15/17 Acyclovir [Zovirax] 400 mg PO BID 12/15/17 Clobetasol Propionate [Temovate Ointment] 1 applic TOPICAL QWEEK 12/15/17 Estradiol [Estrace Vaginal Cream] 1 gm VAGINAL Q7D 12/15/17 Furosemide [Lasix] 20 mg PO DAILY 12/15/17 Magnesium PO DAILY 12/15/17 Pamidronate Disodium 30 mg IV 12/15/17 proMETHazine tablet [Phenergan tablet] 25 mg PO Q6H PRN PRN 12/15/17 traZODone [Desyrel] 100 mg PO DAILY 12/15/17 clopidogrel 75 mg tablet 75 mg PO DAILY #30 tab 06/29/18 fentaNYL patch [Duragesic patch] 50 mcg TRANSDERM. Q72H 07/24/18 Primary Care Physician: Kelvin Khalil MD [Primary Care Provider] - Disposition: Hospice Medical Facility Medical Necessity - Tobacco Use Smoking Status: Never smoker Meaningful Use Info Meaningful Use Diagnoses (Choose all that apply): None applicable Code Visit Inpatient E&M: 95972 Disch Hosp
[2018-08-01 22:45] LABS: Differential Comment SCANNED
--- NOTE | 2018-08-03 09:50 | CASEMGMT ---
[facility] let [facility] know [facility] pt went to [facility]pt hosp[facility] unit. CASH Bauer
== END 2018-08-01 13:50 | disposition hospice, inpatient (51) | DRG 208 ==
LOC: ICU 07-30 16:23 → PCU 07-30 22:37
PROVIDERS: Family Medicine; Hospitalist; Internal Medicine; Internal Medicine Critical Care Medicine; Admitting Provider Family Medicine; Family Provider Internal Medicine Infectious Disease; PCP Internal Medicine Infectious Disease; Visit Provider Family Medicine
DX: J96.00 Acute respiratory failure, unspecified whether with hypoxia or hypercapnia (principal); G92 Toxic encephalopathy; F11.23 Opioid dependence with withdrawal; C90.02 Multiple myeloma in relapse; E87.0 Hyperosmolality and hypernatremia; M84.58XA Pathological fracture in neoplastic disease, other specified site, initial encounter for fracture; I44.7 Left bundle-branch block, unspecified; I25.10 Atherosclerotic heart disease of native coronary artery without angina pectoris; I10 Essential (primary) hypertension; E83.51 Hypocalcemia; E87.6 Hypokalemia; G62.9 Polyneuropathy, unspecified; R53.81 Other malaise; F32.9 Major depressive disorder, single episode, unspecified; F03.90 Unspecified dementia, unspecified severity, without behavioral disturbance, psychotic disturbance, mood disturbance, and anxiety; I16.0 Hypertensive urgency; E87.8 Other disorders of electrolyte and fluid balance, not elsewhere classified; Z51.5 Encounter for palliative care
CPT/HCPCS: 31720; 36415; 36600; 70553; 71045; 80048; 80053; 82803; 82962; 83605; 83735; 84100; 85025; 87040; 87070; 87205; 87493; 93005; 94002; 94003; 94640; 97802; 97803; A9575; J7030; J7050; A4216; J2405; J3490; J7799